=== PATIENT | female | born 1950 | race Caucasian/White ===

== ENCOUNTER → 2019-07-07 10:56 | Outpatient (CLI) | payer MEDICARE, SELFPAY ==
--- NOTE | 2019-07-07 11:07 | XR_ITS ---
PROCEDURE: XR KNEE RT 3V CLINICAL INDICATION: RT KNEE PAIN COMPARISON: No exams were available for comparison FINDINGS: There are moderate to severe osteoarthritic changes of the medial compartment and patellofemoral joint. No fracture or dislocation. There are several small calcific densities along the posterior aspect of the knee 1 0 which is felt to represent the fabella. There are at least 2 or 3 other small calcific densities at the tibial fibular region and could represent small loose bodies. Other findings:None. IMPRESSION: Moderate to severe osteoarthritic change with suspected small loose bodies laterally Dictated by: Dragan Escalante MD 07/07/2019 13:02 Electronically signed by Dragan Escalante MD in [place] 07/07/2019 13:02
== END ==
PROVIDERS: PCP Nurse Practitioner; Visit Provider Nurse Practitioner
DX: M25.561 Pain in right knee (principal)
CPT/HCPCS: 73562

== ENCOUNTER → 2019-07-26 13:33 | Outpatient (CLI) | payer MEDICARE, SELFPAY ==
--- NOTE | 2019-07-26 13:37 | XR_ITS ---
PROCEDURE: XR KNEE RT 4V CLINICAL INDICATION: knee pain Knee pain and swelling COMPARISON: XR KNEE RT 3V from 07/07/2019 FINDINGS: There are moderate osteoarthritic changes of the medial compartment and mild osteoarthritis of the lateral compartment and patellofemoral joint. There are multiple small loose bodies noted along the tibiofibular junction. These may be synovial osteochondromas within a bursa. No fracture or dislocation. Other findings:None. IMPRESSION: No change osteoarthritis with suspected small synovial osteochondromas. MRI may confirm this finding Dictated by: Dragan Escalante MD 07/26/2019 16:29 Electronically signed by Dragan Escalante MD in [facility] 07/26/2019 16:29
== END ==
PROVIDERS: PCP Nurse Practitioner; Visit Provider Orthopaedic Surgery
DX: M25.561 Pain in right knee (principal)
CPT/HCPCS: 73564

== ENCOUNTER → 2021-09-11 11:40 | Outpatient (CLI) | payer MEDICARE, SELFPAY | PROVIDERS: PCP Nurse Practitioner Family; Visit Provider Nurse Practitioner | DX: U07.1 COVID-19 (principal) | CPT/HCPCS: C9803; U0003; U0005 ==

== ENCOUNTER → 2022-11-07 10:56 | Outpatient (CLI) | payer MEDICARE, SELFPAY ==
--- NOTE | 2022-11-07 11:00 | MM_ITS ---
PROCEDURE INFORMATION: Exam: Bilateral Screening 3D Mammography Exam date and time: 11/07/2022 10:57 AM Age: 72 years old Clinical indication: Screening examination TECHNIQUE: Imaging protocol: Bilateral Screening tomosynthesis and 2D mammography including computer-aided detection (CAD) when performed. COMPARISON: [facility] DIGITAL MAMM-SCREEN BILATERAL 04/22/2011 8:27 AM FINDINGS: MAMMOGRAPHY: Breast composition: There are scattered areas of fibroglandular density. Mass: None. Architectural distortion: None. Calcifications: No suspicious calcifications. Asymmetric density: None. Skin thickening: None. Axillary adenopathy: None. IMPRESSION: No mammographic evidence of malignancy. Annual screening is recommended unless otherwise clinically indicated. ASSESSMENT: BI-RADS Category 1: Negative
== END ==
PROVIDERS: PCP Nurse Practitioner Family; Visit Provider Nurse Practitioner Family
DX: Z12.31 Encounter for screening mammogram for malignant neoplasm of breast (principal)
CPT/HCPCS: 77063; 77067

== ENCOUNTER → 2023-05-28 13:32 | Outpatient (CLI) | payer MEDICARE, SELFPAY ==
[2023-05-27 19:03] LABS: Alanine Aminotransferase 18 U/L (12-78); Albumin Level 4.3 g/dl (3.5-5.0); Albumin/Globulin Ratio 1.5 (1.1-1.8); Alkaline Phosphatase 56 U/L (38-126); Anion Gap 13.4 mEq/L (5-15); Aspartate Amino Transferase 27 U/L (14-36); Bilirubin,Total 0.4 mg/dl (0.2-1.3); Blood Urea Nitrogen 21 mg/dl (7-17); Calcium 9.2 mg/dl (8.4-10.2); Carbon Dioxide 29 mmol/L (22.0-30.0); Chloride 102 mmol/L (98-107); Chol/HDL Ratio 2.8 (1-3.5); Cholesterol 202 mg/dl (140-200); Estimated Glomerular Filt Rate 70 ml/min (>60); GFR (African American) 85 ML/MIN (>60); Globulin 2.9 g/dL (1.3-3.2); Glucose 78 mg/dl (74-100); HDL Cholesterol 71 mg/dl (40-60); Potassium 4.4 mmoL/L (3.5-5.1); Sodium 140 mmol/L (136-145); Total Protein,Serum 7.2 g/dl (6.3-8.2); Triglycerides 107 mg/dl (30-150); VLDL Cholesterol 21 mg/dL (0-40)
[2023-05-27 19:14] LABS: Direct LDL Cholesterol 87.62 mg/dL (100-129)
[2023-05-27 19:31] LABS: Thyroid Stimulating Hormone 2.14 uIU/mL (0.465-4.68)
== END ==
PROVIDERS: PCP Nurse Practitioner Family; Visit Provider Nurse Practitioner Family
DX: E78.5 Hyperlipidemia, unspecified (principal)
CPT/HCPCS: 80053; 80061; 84443

== ENCOUNTER 2023-12-22 13:12 | Outpatient (CLI) | payer MEDICARE, SELFPAY ==
[2023-12-22 13:02] LABS: Basophils # 0.1 K/mm3 (0-0.2); Basophils % 0.9 % (0.1-2.0); Eosinophils # 0.1 K/mm3 (0.0-0.4); Hematocrit 43.9 % (37.0-47.0); Lymphocytes # 2.3 K/mm3 (0.7-4.5); Lymphocytes % 34.6 % (10-50); Mean Corpuscular HGB Conc 31.7 g/dL (31.8-35.4); Mean Corpuscular Hemoglobin 31.1 pg (27.0-31.2); Mean Platelet Volume 10.5 fl (7.4-10.4); Monocytes # 0.4 K/mm3 (0.1-1.0); Monocytes % 6.6 % (1.7-9.3); Neutrophils # 3.7 K/mm3 (1.8-7.8); Neutrophils % 56.9 % (37.0-80.0); Platelet Count 210 K/mm3 (142-424); Red Blood Count 4.48 M/mm3 (4.20-5.40); Red Cell Distribution Width 13.3 % (11.5-17.5); White Blood Count 6.6 K/mm3 (4.8-10.8)
[2023-12-22 13:41] LABS: Alanine Aminotransferase 18 U/L (12-78); Albumin Level 4.2 g/dl (3.5-5.0); Albumin/Globulin Ratio 1.7 (1.1-1.8); Alkaline Phosphatase 51 U/L (38-126); Anion Gap 10.8 mEq/L (5-15); Aspartate Amino Transferase 20 U/L (14-36); Bilirubin,Total 0.5 mg/dl (0.2-1.3); Blood Urea Nitrogen 27 mg/dl (7-17); Calcium 9.7 mg/dl (8.4-10.2); Carbon Dioxide 32 mmol/L (22.0-30.0); Chloride 102 mmol/L (98-107); Chol/HDL Ratio 2.2 (1-3.5); Cholesterol 224 mg/dl (140-200); Estimated Glomerular Filt Rate 70 ml/min (>60); GFR (African American) 85 ML/MIN (>60); Globulin 2.5 g/dL (1.3-3.2); Glucose 85 mg/dl (74-100); HDL Cholesterol 102 mg/dl (40-60); Potassium 3.8 mmoL/L (3.5-5.1); Sodium 141 mmol/L (136-145); Total Protein,Serum 6.7 g/dl (6.3-8.2); Triglycerides 99 mg/dl (30-150); VLDL Cholesterol 20 mg/dL (0-40)
[2023-12-22 13:52] LABS: Direct LDL Cholesterol 103.84 mg/dL (100-129)
[2023-12-22 14:09] LABS: Thyroid Stimulating Hormone 3.16 uIU/mL (0.465-4.68)
[2023-12-22 14:27] LABS: Vitamin B12 531 pg/mL (239-931)
== END 2023-12-22 23:59 | disposition home or self-care (01) ==
LOC: LAB.DROPOF 13:13
PROVIDERS: PCP Nurse Practitioner Family; Visit Provider Nurse Practitioner Family
DX: I10 Essential (primary) hypertension (principal); M25.50 Pain in unspecified joint; E78.5 Hyperlipidemia, unspecified; Z68.1 Body mass index [BMI] 19.9 or less, adult
CPT/HCPCS: 80053; 80061; 82607; 84443; 85025

== ENCOUNTER 2024-07-20 11:00 | Outpatient (CLI) | payer MEDICARE, SELFPAY ==
[2024-07-20 11:05] LABS: Microscopic, Urine URINE MICROSCOPIC (MICROSCOPIC)
[2024-07-20 11:44] LABS: Appearance,Urine CLEAR (Clear); Bilirubin,Urine Negative (Negative); Blood, Urine Negative (Negative); Color,Urine YELLOW (Yellow); Glucose,Urine (UA) Negative (Negative); Ketones,Urine Negative (Negative); Leukocyte Esterase,Urine Negative (Negative); Nitrate,Urine Negative (Negative); PH,Urine 5.5 (5.0-8.5); Protein,Urine Negative (Negative); Urobilinogen,Urine 0.2 EU/dl (0.2)
[2024-07-20 11:46] LABS: Basophils # 0.1 K/mm3 (0-0.2); Basophils % 0.8 % (0.1-2.0); Eosinophils # 0.1 K/mm3 (0.0-0.4); Eosinophils % 0.8 % (0.1-12.0); Hematocrit 41.9 % (37.0-47.0); Hemoglobin 14.2 g/dL (12.2-16.2); Lymphocytes % 32.6 % (10-50); Mean Corpuscular HGB Conc 33.9 g/dL (31.8-35.4); Mean Corpuscular Hemoglobin 31.3 pg (27.0-31.2); Mean Corpuscular Volume 92.3 fl (81-99); Monocytes # 0.5 K/mm3 (0.1-1.0); Monocytes % 7.2 % (1.7-9.3); Neutrophils # 3.7 K/mm3 (1.8-7.8); Neutrophils % 58.7 % (37.0-80.0); Platelet Count 180 K/mm3 (142-424); Red Blood Count 4.54 M/mm3 (4.20-5.40); Red Cell Distribution Width 13.8 % (11.5-17.5); White Blood Count 6.2 K/mm3 (4.8-10.8)
[2024-07-20 11:53] LABS: Bacteria,Urine Trace /lpf; Squamous Epithelial Cell,Urine Occasional #/hpf (0-5)
[2024-07-20 11:59] LABS: Alanine Aminotransferase 54 U/L (12-78); Albumin Level 4.5 g/dl (3.5-5.0); Albumin/Globulin Ratio 1.5 (1.1-1.8); Alkaline Phosphatase 64 U/L (38-126); Anion Gap 12.6 mEq/L (5-15); Aspartate Amino Transferase 32 U/L (14-36); Bilirubin,Total 0.7 mg/dl (0.2-1.3); Blood Urea Nitrogen 29 mg/dl (7-17); Calcium 9.1 mg/dl (8.4-10.2); Carbon Dioxide 28 mmol/L (22.0-30.0); Chloride 104 mmol/L (98-107); Chol/HDL Ratio 3.2 (1-3.5); Cholesterol 256 mg/dl (140-200); Estimated Glomerular Filt Rate 54 ml/min (>60); GFR (African American) 66 ML/MIN (>60); Glucose 95 mg/dl (74-100); HDL Cholesterol 79 mg/dl (40-60); Magnesium 1.9 mg/dl (1.6-2.3); Potassium 3.6 mmoL/L (3.5-5.1); Sodium 141 mmol/L (136-145); Total Protein,Serum 7.5 g/dl (6.3-8.2); Triglycerides 126 mg/dl (30-150); VLDL Cholesterol 25 mg/dL (0-40)
[2024-07-20 12:10] LABS: C-Reactive Protein 2.4 mg/L (0-4); Direct LDL Cholesterol 139.39 mg/dL (100-129)
[2024-07-20 12:11] LABS: Troponin I 0.07 ng/ml (0.00-0.034)
[2024-07-20 12:29] LABS: Thyroid Stimulating Hormone 3.04 uIU/mL (0.465-4.68)
== END 2024-07-20 23:59 | disposition home or self-care (01) ==
LOC: LAB 11:01
PROVIDERS: PCP Nurse Practitioner Family; Visit Provider Nurse Practitioner Family
DX: E78.5 Hyperlipidemia, unspecified (principal); R55 Syncope and collapse; I10 Essential (primary) hypertension
CPT/HCPCS: 36415; 80053; 80061; 81001; 83735; 84443; 84484; 85025; 86140

== ENCOUNTER 2024-07-20 16:32 | Observation (INO) | payer MEDICARE, SELFPAY ==
[2024-07-20] VITALS (9 sets, daily range): BP systolic 137–175; BP diastolic 68–106; PULSE 63–83; RESP 17–20; TEMP 36.4–36.7; O2SAT 91–100; BMI 20.2
--- NOTE | 2024-07-20 16:52 | ED_ITS ---
<Statement entered by Bonny Lopez DO - 07/21/24 00:25> I was consulted by the TAO, and we discussed the complexity of the problems being addressed. I approved the treatment and management plan for this patient's care in the emergency department, thus performing a substantive portion of the medical decision making. Bonny Lopez DO Discharge Plan Disposition Patient Disposition: Admitted Condition: Good Clinical Impressions Clinical Impression: Syncope and collapse, Elevated troponin I level, Elevated brain natriuretic peptide (BNP) level Discharge ED Provider: Bonny Lopez General Adult HPI <THERESA Porter - Last Filed: 07/20/24 19:56> General Chief complaint: Recheck/Abnormal Lab/Rx Stated complaint: sent by DR. Whittington blood test results Time Seen by Provider: 07/20/24 16:52 Mode of Arrival: Ambulatory Source of Information: Patient and Spouse Limitations: No Limitations Description of Symptoms (Recalled from ER Triage Doc. by RN): pt went to pcp office today after passing out yesterday at home at 11:30 it was witnessed an no head injury sustained pt denies any pain. pt states she was called this afternoon about abnormal heart labs trop was 0.07. pt states she is dehydrated and they switched her from bp med with fluid pill to one without it. pt is alox 4 denies any cp soa and only stated she had dizziness as of yesterday History of Present Illness HPI narrative: Patient presents from her PCPs office for abnormal lab results. Patient had a syncopal event yesterday that was unprovoked. She states that she got dizzy and abruptly passed out while standing talking to her son and in the yard. Fortunately she suffered no injury but her states that she was approximately unconscious for 2 minutes. Patient reports that she has never passed out in her life. She suffered no ill effect however but she went to see her PCP today for checkup. Her PCP did routine blood work but in addition ordered a troponin which was elevated at 0.07. Subsequently she was sent to the ER for evaluation. Currently the time my exam patient denies chest pain fever chills hemoptysis hematochezia melena nausea vomit diarrhea. Related Data Home Medications ?Medication ?Instructions ?Recorded ?Confirmed pravastatin 20 mg tablet 20 mg PO DAILY 06/16/24 07/20/24 Previous Rx's ?Medication ?Instructions ?Recorded meloxicam 15 mg tablet 15 mg PO DAILY 90 days #90 tabs 05/28/23 lisinopril 20 mg tablet 20 mg PO DAILY #90 tabs 07/20/24 Allergies Allergy/AdvReac Type Severity Reaction Status Date / Time No Known Allergies Allergy Verified 07/20/24 10:00 [facility] <THERESA Porter - Last Filed: 07/20/24 19:56> [facility] Disclaimer: The information contained in this section may have been updated after the patient was seen, as this information can be updated by other users. Surgical History Hx of colonoscopy 12/2021 normal Family History Father Cancer lung Mother Cancer lung Social History Smoking Status: Never smoker alcohol intake: never substance use type: denies use current occupational status: retired Travel in the last 8 weeks: None Other Medical History Have you received the Pneumonia Vaccine: No <THERESA Proter - Last Filed: 07/20/24 19:56> ROS Obtained: Yes Systems reviewed as appropriate & no additional complaints except as documented Physical Exam <THERESA Porter - Last Filed: 07/20/24 19:56> General General appearance: alert and in no apparent distress Respiratory Respiratory exam: Present normal lung sounds bilaterally Cardiovascular Cardiovascular exam: Present regular rate Neurological Exam Neurological exam: Present alert and oriented X3 Medical Decision Making <THERESA Porter - Last Filed: 07/20/24 19:56> Medical Records Medical records reviewed: Yes I reviewed the patient's medical records. Screening: Per USPSTF and CDC recommendations, given the prevalence of disease in our region, it is our hospital?s policy to screen for HIV and viral Hepatitis for all patients aged 18 and over and those with ongoing risk factors. Ronny Inquiry Pt receiving controlled substance: No Vital Signs: 07/20/24 16:33 07/20/24 17:00 07/20/24 18:01 Temperature 98 F Temperature Source Oral Pulse Rate 73 72 Pulse Rate [Right Radial] 83 Respiratory Rate 20 Blood Pressure 175/90 H 146/81 H Blood Pressure [Right Arm] 169/95 H Blood Pressure Mean [Right Arm] 119 02 Sat by Pulse Oximetry 100 100 100 Oxygen Delivery Method Room Air 07/20/24 19:00 07/20/24 19:30 07/20/24 20:00 Temperature Temperature Source Pulse Rate 72 77 70 Pulse Rate [Right Radial] Respiratory Rate Blood Pressure 145/106 H 160/82 H 142/85 H Blood Pressure [Right Arm] Blood Pressure Mean [Right Arm] 02 Sat by Pulse Oximetry 91 L 100 100 Oxygen Delivery Method Lab Data Lab results reviewed: Yes I reviewed the patient's lab results. Lab Results 07/20/24 17:30: PT 10.3, INR 0.91, Magnesium 1.8, Troponin I 0.05 H, NT-Pro-B Natriuret Pep 1760 H, TSH 4.07 D, Free T4 Index 2.9 L, Thyroxine (T4) 8.8, T3 Uptake 33 07/20/24 18:18: Urine Color Yellow, Urine Appearance Clear, Urine pH 5.5, Ur Specific [place] 1.010, Urine Protein Negative, Urine Glucose (UA) Negative, Urine Ketones Negative, Urine Blood Negative, Urine Nitrate Negative, Urine Bilirubin Negative, Urine Urobilinogen 0.2, Ur Leukocyte Esterase Negative, Urine RBC 3-5, Urine WBC Occasional, Ur Squamous Epith Cells Occasional, Urine Opiates Screen Negative, Urine Methadone Screen Negative, Ur Barbituates Screen Negative, Ur Phencyclidine Scrn Negative, Ur Amphetamines Screen Negative, U Benzodiazepines Scrn Negative, Urine Cocaine Screen Negative, U Marijuana (THC) Screen Negative, SARS-CoV-2 (PCR) Not detected, Influenza A Untype (PCR) Not detected, Influenza Type B (PCR) Not detected Orders (Tests/Meds): ED MEDICATIONS Discontinued Medications Generic Name Dose Route Start Last Admin Trade Name Freq PRN Reason Stop Dose Admin Iopamidol 150 ml 07/20/24 17:30 07/20/24 17:31 Iopamidol-370 (76%);100ml Bottle IV 07/20/24 17:31 150 ml ONCE ONE Administration Sodium Chloride 10 ml 07/20/24 17:30 07/20/24 17:31 Sodium Chloride 0.9% 10ml Syr (Rad Only) IV 07/20/24 17:31 10 ml ONCE ONE Administration Sodium Chloride 50 ml 07/20/24 17:30 07/20/24 17:31 0.9 % Sodium Chloride 50 Ml Vial IV 07/20/24 17:31 50 ml ONCE ONE Administration ORDERS Category Date Time Status CT angio chest PE protocol Stat Cat Scan 07/20/24 17:[address] angio head Stat Cat Scan 07/20/24 17:[address] angio neck Stat Cat Scan 07/20/24 17:[address] head/brain wo con Stat Cat Scan 07/20/24 17:04 Completed Cardiology Consult [Consult to Cardiology] [CONS] Cons 07/20/24 19:30 Active Routine BNP [NT Pro Brain Natriuretic Pep.] Stat Lab 07/20/24 17:30 Completed Complete Blood Count Auto Diff AMLAB Lab 07/21/24 06:00 Ordered Comprehensive Metabolic Panel AMLAB Lab 07/21/24 06:00 Ordered INR [Prothrombin Time INR] Stat Lab 07/20/24 17:30 Completed Lipid Panel AMLAB Lab 07/21/24 06:00 Ordered Magnesium AMLAB Lab 07/21/24 06:00 Ordered Magnesium Stat Lab 07/20/24 17:30 Completed Rapid PCR Covid and Flu A/B Stat Lab 07/20/24 18:18 Completed Thyroid Panel Stat Lab 07/20/24 17:30 Completed Trop I [Troponin I] Stat Lab 07/20/24 17:30 Completed Troponin I Q3H Lab 07/20/24 20:13 Received Troponin I Q3H Lab 07/20/24 23:15 Ordered UA [Urinalysis and Microscopic] Stat Lab 07/20/24 18:18 Completed UDS [Drug Screen,Urine] Stat Lab 07/20/24 18:18 Completed Medical Decision Narrative: In summary patient is a 74-year-old female who presents to the emergency department for evaluation of evaded troponin and previous syncope and collapse. Patient is initially with a blood pressure of 169/95 pulse 83 respiratory rate 20 O2 sats 100% on room air upon arrival, febrile. Exam is unremarkable and nonfocal including normal heart sounds no carotid bruits normal breath sounds Nadia Coma Score 15 awake alert and oriented person place and circumstance and retains the capacity for decision making. She has no nuchal rigidity.. Differential diagnosis includes cardiac arrhythmia versus vasovagal syncope cardiovascular blockage versus PE versus intracranial lesion etc. Initial workup will be conducted with hematologic labs CT scan of the head without contrast CTA of the head and neck CT PE protocol of the chest. Initial interventions were considered however patient is asymptomatic thus deferred for now. Initial workup reviewed by me shows her troponin is downward trending and is still positive at 0.05, her NT proBNP was elevated at 1760 and her labs from earlier today were reviewed by myself and nonactionable the on the positive troponin. I reinterviewed the patient regarding her symptoms and several more family members are present and they all mentioned that she had been having occasional dizziness that she felt better with after vomiting. There very infrequent however she has never had them before recently either. She did report that in addition to the dizziness that she felt like she was having palpitations . She is unsure if the palpitations came first or the dizziness but they seem to happen together. She did state that she was having dizziness but cannot member she had palpitations or not. Given this I had an interactive discussion with hospital medicine regarding patient management and she will be admitted for further evaluation and care <Bonny Lopez, DO - Last Filed: 07/20/24 20:21> Vital Signs: 07/20/24 16:33 07/20/24 17:00 07/20/24 18:01 Temperature 98 F Temperature Source Oral Pulse Rate 73 72 Pulse Rate [Right Radial] 83 Respiratory Rate 20 Blood Pressure 175/90 H 146/81 H Blood Pressure [Right Arm] 169/95 H Blood Pressure Mean [Right Arm] 119 02 Sat by Pulse Oximetry 100 100 100 Oxygen Delivery Method Room Air 07/20/24 19:00 07/20/24 19:30 07/20/24 20:00 Temperature Temperature Source Pulse Rate 72 77 70 Pulse Rate [Right Radial] Respiratory Rate Blood Pressure 145/106 H 160/82 H 142/85 H Blood Pressure [Right Arm] Blood Pressure Mean [Right Arm] 02 Sat by Pulse Oximetry 91 L 100 100 Oxygen Delivery Method Lab Data Lab Results 07/20/24 17:30: PT 10.3, INR 0.91, Magnesium 1.8, Troponin I 0.05 H, NT-Pro-B Natriuret Pep 1760 H, TSH 4.07 D, Free T4 Index 2.9 L, Thyroxine (T4) 8.8, T3 Uptake 33 07/20/24 18:18: Urine Color Yellow, Urine Appearance Clear, Urine pH 5.5, Ur Specific [place] 1.010, Urine Protein Negative, Urine Glucose (UA) Negative, Urine Ketones Negative, Urine Blood Negative, Urine Nitrate Negative, Urine Bilirubin Negative, Urine Urobilinogen 0.2, Ur Leukocyte Esterase Negative, Urine RBC 3-5, Urine WBC Occasional, Ur Squamous Epith Cells Occasional, Urine Opiates Screen Negative, Urine Methadone Screen Negative, Ur Barbituates Screen Negative, Ur Phencyclidine Scrn Negative, Ur Amphetamines Screen Negative, U Benzodiazepines Scrn Negative, Urine Cocaine Screen Negative, U Marijuana (THC) Screen Negative, SARS-CoV-2 (PCR) Not detected, Influenza A Untype (PCR) Not detected, Influenza Type B (PCR) Not detected Orders (Tests/Meds): ED MEDICATIONS Discontinued Medications Generic Name Dose Route Start Last Admin Trade Name Freq PRN Reason Stop Dose Admin Iopamidol 150 ml 07/20/24 17:30 07/20/24 17:31 Iopamidol-370 (76%);100ml Bottle IV 07/20/24 17:31 150 ml ONCE ONE Administration Sodium Chloride 10 ml 07/20/24 17:30 07/20/24 17:31 Sodium Chloride 0.9% 10ml Syr (Rad Only) IV 07/20/24 17:31 10 ml ONCE ONE Administration Sodium Chloride 50 ml 07/20/24 17:30 07/20/24 17:31 0.9 % Sodium Chloride 50 Ml Vial IV 07/20/24 17:31 50 ml ONCE ONE Administration ORDERS Category Date Time Status CT angio chest PE protocol Stat Cat Scan 07/20/24 17:[address] angio head Stat Cat Scan 07/20/24 17:[address] angio neck Stat Cat Scan 07/20/24 17:[address] head/brain wo con Stat Cat Scan 07/20/24 17:04 Completed Cardiology Consult [Consult to Cardiology] [CONS] Cons 07/20/24 19:30 Active Routine BNP [NT Pro Brain Natriuretic Pep.] Stat Lab 07/20/24 17:30 Completed Complete Blood Count Auto Diff AMLAB Lab 07/21/24 06:00 Ordered Comprehensive Metabolic Panel AMLAB Lab 07/21/24 06:00 Ordered INR [Prothrombin Time INR] Stat Lab 07/20/24 17:30 Completed Lipid Panel AMLAB Lab 07/21/24 06:00 Ordered Magnesium AMLAB Lab 07/21/24 06:00 Ordered Magnesium Stat Lab 07/20/24 17:30 Completed Rapid PCR Covid and Flu A/B Stat Lab 07/20/24 18:18 Completed Thyroid Panel Stat Lab 07/20/24 17:30 Completed Trop I [Troponin I] Stat Lab 07/20/24 17:30 Completed Troponin I Q3H Lab 07/20/24 20:13 Received Troponin I Q3H Lab 07/20/24 23:15 Ordered UA [Urinalysis and Microscopic] Stat Lab 07/20/24 18:18 Completed UDS [Drug Screen,Urine] Stat Lab 07/20/24 18:18 Completed ECG Data Tracing #1: I reviewed this ECG and interpreted as documented below: Normal sinus rhythm with a ventricular rate of [address] changes concerning for ischemia. Normal axis and intervals ECG initial impression date: 07/20/24 ECG initial impression time: 17:23 Critical Care <THERESA Porter - Last Filed: 07/20/24 19:56> Critical Care Time Critical Care Time: No
--- NOTE | 2024-07-20 17:04 | CT_ITS ---
PROCEDURE INFORMATION: Exam: CTA Head With Contrast, Arteriography Exam date and time: 07/20/2024 5:30 PM Age: 74 years old Clinical indication: Syncope and collapse TECHNIQUE: Imaging protocol: Computed tomographic angiography of the head with contrast. Exam focused on the arteries. 3D rendering (Not supervised by radiologist): MIP and/or 3D reconstructed images were created by the technologist. Radiation optimization: All CT scans at this facility use at least one of these dose optimization techniques: automated exposure control; mA and/or kV adjustment per patient size (includes targeted exams where dose is matched to clinical indication); or iterative reconstruction. Contrast material: ISOVUE 370; Contrast volume: 80 ml; Contrast route: INTRAVENOUS (IV); COMPARISON: CT HEAD/BRAIN WO CON 08/18/2024 17:30 FINDINGS: ANTERIOR CIRCULATION: Right internal carotid artery: Intracranial segment is patent with no significant stenosis. No aneurysm. Right middle cerebral artery: No occlusion or significant stenosis. No aneurysm. Right anterior cerebral artery: No occlusion or significant stenosis. No aneurysm. Left internal carotid artery: Intracranial segment is patent with no significant stenosis. No aneurysm. Left middle cerebral artery: No occlusion or significant stenosis. No aneurysm. Left anterior cerebral artery: No occlusion or significant stenosis. No aneurysm. POSTERIOR CIRCULATION: Right vertebral artery: No occlusion or significant stenosis. No aneurysm. Left vertebral artery: No occlusion or significant stenosis. No aneurysm. Basilar artery: No occlusion or significant stenosis. No aneurysm. 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 Left posterior cerebral artery: No occlusion or significant stenosis. No aneurysm. Brain: No definite mass, mass effect, or midline shift. Cerebral ventricles: No ventriculomegaly. Bones/joints: Unremarkable. No acute fracture. Soft tissues: Unremarkable. IMPRESSION: No significant intracranial arterial abnormality.
--- NOTE | 2024-07-20 17:04 | CT_ITS ---
PROCEDURE INFORMATION: Exam: CTA Neck With Contrast Exam date and time: 07/20/2024 5:30 PM Age: 74 years old Clinical indication: Syncope and collapse TECHNIQUE: Imaging protocol: Computed tomographic angiography of the neck with contrast. Exam focused on the cervical segments of the vasculature. 3D rendering (Not supervised by radiologist): MIP and/or 3D reconstructed images were created by the technologist. Radiation optimization: All CT scans at this facility use at least one of these dose optimization techniques: automated exposure control; mA and/or kV adjustment per patient size (includes targeted exams where dose is matched to clinical indication); or iterative reconstruction. Contrast material: ISOVUE 370; Contrast volume: 80 ml; Contrast route: INTRAVENOUS (IV); COMPARISON: CT ANGIO HEAD 08/18/2024 17:30 FINDINGS: Right common carotid artery: No stenosis. No dissection or occlusion. Right internal carotid artery: 0% stenosis of the right internal carotid artery per NASCET criteria. Right external carotid artery: No occlusion or stenosis of the origin. Left common carotid artery: No stenosis. No dissection or occlusion. Left internal carotid artery: 0% stenosis of the left internal carotid artery per NASCET criteria. Left external carotid artery: No occlusion or stenosis of the origin. Right vertebral artery: No stenosis. No dissection or occlusion. Left vertebral artery: No stenosis. No dissection or occlusion. Thyroid: Thyroid nodules measuring up to 7 mm. No follow-up imaging is warranted. Soft tissues: Normal. No significant soft tissue swelling. Bones/joints: Multilevel degenerative changes of the cervical spine producing multiple levels of mild and moderate spinal canal stenosis. Lungs: Bilateral apical scarring. IMPRESSION: No significant abnormality of the carotid and vertebral arteries. COMMENTS: Consistent with the [employer]'s Incidental Findings Committee white paper (J Am Raul Radiol 2015): In patients aged 35 years and older with an incidental thyroid nodule equal to or greater than 1.[address], MRI or extrathyroidal US, further evaluation with dedicated thyroid US is recommended for patients with normal life expectancy and without comorbidities. For smaller nodules without suspicious features, no further evaluation or follow up is recommended. REFERENCES: NASCET CRITERIA. The degree of stenosis in the cervical segment of the internal carotid artery is based on NASCET criteria. Normal is no stenosis. Mild is less than 50% stenosis. Moderate is 50-69% stenosis. Severe is 70% to 99% stenosis. Total occlusion is no detectable patent lumen.
--- NOTE | 2024-07-20 17:04 | CT_ITS ---
PROCEDURE INFORMATION: Exam: CTA Chest With Contrast Exam date and time: 07/20/2024 5:34 PM Age: 74 years old Clinical indication: Other: Syncope and collapse; Additional info: Syncope and collapse, elevated troponin TECHNIQUE: Imaging protocol: Computed tomographic angiography of the chest with contrast. Exam focused on the arteries. 3D rendering (Not supervised by radiologist): MIP and/or 3D reconstructed images were created by the technologist. Radiation optimization: All CT scans at this facility use at least one of these dose optimization techniques: automated exposure control; mA and/or kV adjustment per patient size (includes targeted exams where dose is matched to clinical indication); or iterative reconstruction. Contrast material: ISOVUE 370; Contrast volume: 70 ml; Contrast route: INTRAVENOUS (IV); COMPARISON: CT ANGIO NECK 07/20/2024 5:30 PM FINDINGS: Pulmonary arteries: There is no evidence for clinically relevant pulmonary arterial filling defect. Tiny distal filling defects may be present but are of dubious clinical significance. Aorta: There is atherosclerotic disease of the visualized aorta and its major branch vessels. Lungs: Calcified granuloma is noted in the left lower lobe. Small consolidation at the left lung base may reflect atelectasis or infection. Scattered areas of bronchial wall thickening which are likely chronic inflammatory. A few areas of subpleural reticulation are noted, nonspecific. Pleural spaces: Unremarkable. No pneumothorax. No pleural effusion. Heart: Unremarkable. No cardiomegaly. No pericardial effusion. Lymph nodes: Unremarkable. No enlarged lymph nodes. Bones/joints: There is diffuse degenerative disease of the visualized osseous structures. Soft tissues: Unremarkable. IMPRESSION: 1. Small consolidation at the left lung base may reflect atelectasis or infection. 2. No evidence for clinically relevant pulmonary arterial filling defect.
--- NOTE | 2024-07-20 17:04 | CT_ITS ---
PROCEDURE INFORMATION: Exam: CT Head Without Contrast Exam date and time: 07/20/2024 5:30 PM Age: 74 years old Clinical indication: Syncope and collapse TECHNIQUE: Imaging protocol: Computed tomography of the head without contrast. Radiation optimization: All CT scans at this facility use at least one of these dose optimization techniques: automated exposure control; mA and/or kV adjustment per patient size (includes targeted exams where dose is matched to clinical indication); or iterative reconstruction. COMPARISON: CT ANGIO HEAD 08/18/2024 17:30 FINDINGS: Brain: Bilateral basal ganglial low-attenuation lesions could be dilated perivascular spaces are chronic lacunar infarctions. Mild chronic brain volume loss and chronic small vessel ischemic changes. Cerebral ventricles: No ventriculomegaly. Paranasal sinuses: Visualized sinuses are unremarkable. No fluid levels. Mastoid air cells: Visualized mastoid air cells are well aerated. Bones: Unremarkable. No acute fracture. Soft tissues: Unremarkable. IMPRESSION: No acute intracranial findings. If there is high clinical concern for acute infarction, consider MRI for further evaluation. ASSESSMENT: ASPECTS score ([place] Stroke Program Early CT Score) is 10.
--- NOTE | 2024-07-20 17:15 | ECG_ITS ---
APPROVED REPORT Exam: Resting ECG HR:70 bpm ECG Measurements Heart Rate 70 AXES CA 179 P 75 QRSd 94 QRS 58 QT 393 T 56 QTc 413 Conclusion SINUS RHYTHM POSSIBLE LEFT ATRIAL ENLARGEMENT [-0.1mV P-WAVE IN V1/V2] BORDERLINE ECG Electronically signed by : DIPAK ANDRADE, 07/21/2024 00:47:10
[2024-07-20] MEDS: IOPAMIDOL-370 (76%);100ML BOTTLE 150 ML IV (17:31)
[2024-07-20] MEDS: 0.9 % SODIUM CHLORIDE 50 ML VIAL IV (17:31)
[2024-07-20] MEDS: SODIUM CHLORIDE 0.9% 10ML SYR (RAD ONLY) 10 ML IV (17:31)
[2024-07-20 18:01] LABS: INR 0.91 (0.9-1.1); Prothrombin Time 10.3 seconds (10.1-12.5)
[2024-07-20 18:25] LABS: Coronavirus 19, PCR Not Detected (NotDetected); Influenza A, PCR Not Detected (NotDetected); Influenza B, PCR Not Detected (NotDetected); Microscopic, Urine URINE MICROSCOPIC (MICROSCOPIC)
[2024-07-20 18:28] LABS: Appearance,Urine CLEAR (Clear); Bilirubin,Urine Negative (Negative); Blood, Urine Negative (Negative); Color,Urine YELLOW (Yellow); Glucose,Urine (UA) Negative (Negative); Ketones,Urine Negative (Negative); Leukocyte Esterase,Urine Negative (Negative); Nitrate,Urine Negative (Negative); PH,Urine 5.5 (5.0-8.5); Protein,Urine Negative (Negative); Urobilinogen,Urine 0.2 EU/dl (0.2)
[2024-07-20 18:34] LABS: Magnesium 1.8 mg/dl (1.6-2.3)
[2024-07-20 18:45] LABS: Amphetamine/Metha Screen,Urine Negative ng/ml (<1000); Barbiturates Screen,Urine Negative ng/ml (<200); Benzodiazepines Screen,Urine Negative ng/ml (<200); Cannabinoid Screen,Urine Negative ng/ml (<50); Cocaine Screen,Urine Negative ng/ml (<300); Methadone Screen,Urine Negative ng/ml (<300); Opiate Screen,Urine Negative ng/ml (<300); Phencyclidine Screen,Urine Negative ng/ml (<25)
[2024-07-20 18:53] LABS: NT Pro Brain Natriuretic Pep. 1760 pg/mL (0-125); Troponin I 0.05 ng/ml (0.00-0.034)
[2024-07-20 19:04] LABS: Free Thyroxine Index 2.9 ug/dL (5.93-13.13); T4 (Thyroxine) 8.8 ug/dl (5.53-11.0); Triiodothryronine (T3) Uptake 33 % (23.5-40.5)
[2024-07-20 19:17] LABS: Squamous Epithelial Cell,Urine Occasional #/hpf (0-5); WBC,Urine Occasional #/hpf (0-3)
[2024-07-20 19:18] LABS: Thyroid Stimulating Hormone 4.07 uIU/mL (0.465-4.68)
[2024-07-20 20:56] LABS: Troponin I 0.04 ng/ml (0.00-0.034)
--- NOTE | 2024-07-20 21:53 | P.HP_ITS ---
History of Present Illness *Admission Date: 07/20/24 *Reason for visit:: Syncope *History of present illness: Ms. Grider is a 74-year-old female who initially presented to her primary care doctor's office today because of an episode of syncope yesterday at about 1130. She was talking to her son and had been standing for at least 15 minutes when she became dizzy lost consciousness and fell. Denies any head trauma. Denies any chest pain, nausea, vomiting, shortness of breath at that time. She was called today after getting labs obtained by her PCP where she was noted to have a mild elevation in troponin at 0.07. Presentation to the ER, patient is chest pain-free. Stable on room air. Normal blood pressure with systolics in the 130s. Overall feeling well. Reports that her event yesterday lasted about 2 minutes with a regaining consciousness shortly thereafter. No postictal state or prodrome. States she has had over the past year episodes of dizziness and vomiting but never passed out before. Denies any episodes of chest pain, chest pressure, arm weakness or pain. Only history of hypertension and hyperlipidemia. Workup in the ER concerning for elevated BNP. Medicine consulted for evaluation and admission overnight for observation. On arrival to the floor, patient's and daughter at bedside. Overall well. Alert and oriented x 4. Denies emesis, nausea, diarrhea, chest pain, confusion. [facility] Disclaimer: The information contained in this section may have been updated after the patient was seen, as this information can be updated by other users. Medical History Hyperlipidemia Hypertension Surgical History Hx of colonoscopy Family History Father Cancer Father Mother Social History (Updated 07/20/24 @ 22:10 by Randi Graham RN) Smoking Status: Never smoker alcohol intake: never substance use type: denies use current occupational status: retired Travel in the last 8 weeks: None Other Medical History Have you received the Pneumonia Vaccine: No Review of Systems Review of Systems Review of systems (narrative): 14 point review of systems performed, pertinent positives and negatives as per HPI Meds Home Medications and Allergies Home Medications ?Medication ?Instructions ?Recorded ?Confirmed ?Type pravastatin 20 mg tablet 20 mg PO DAILY 06/16/24 07/20/24 History lisinopril 20 mg tablet 20 mg PO DAILY #90 tabs 07/20/24 07/20/24 Rx multivitamin 1 tab PO DAILY 07/20/24 07/20/24 History New Prescriptions to Start Prescriptions: Allergies Allergy/AdvReac Type Severity Reaction Status Date / Time No Known Allergies Allergy Verified 07/20/24 10:00 Exam Data for Last 24 hours Vital signs and Labs for Last 24 Hours: Temp Pulse Resp BP Pulse Ox O2 Del Method 98.0 F 70 17 137/82 100 Room Air 07/20/24 20:20 07/20/24 20:55 07/20/24 20:20 07/20/24 20:20 07/20/24 20:00 07/20/24 20:20 Laboratory Results - last 24 hr 07/20/24 17:30: PT 10.3, INR 0.91, Magnesium 1.8, Troponin I 0.05 H, NT-Pro-B Natriuret Pep 1760 H, TSH 4.07 D, Free T4 Index 2.9 L, Thyroxine (T4) 8.8, T3 Uptake 33 07/20/24 18:18: Urine Color Yellow, Urine Appearance Clear, Urine pH 5.5, Ur Specific [place] 1.010, Urine Protein Negative, Urine Glucose (UA) Negative, Urine Ketones Negative, Urine Blood Negative, Urine Nitrate Negative, Urine Bilirubin Negative, Urine Urobilinogen 0.2, Ur Leukocyte Esterase Negative, Urine RBC 3-5, Urine WBC Occasional, Ur Squamous Epith Cells Occasional, Urine Opiates Screen Negative, Urine Methadone Screen Negative, Ur Barbituates Screen Negative, Ur Phencyclidine Scrn Negative, Ur Amphetamines Screen Negative, U Benzodiazepines Scrn Negative, Urine Cocaine Screen Negative, U Marijuana (THC) Screen Negative, SARS-CoV-2 (PCR) Not detected, Influenza A Untype (PCR) Not detected, Influenza Type B (PCR) Not detected 07/20/24 20:13: Troponin I 0.04 H I & O for Last 24 hours: Intake & Output 07/17/24 07/18/24 07/19/24 07/20/24 23:59 23:59 23:59 23:59 Weight 57.198 kg Constitutional Constitutional: no acute distress, thin and cooperative *Routine HEENT Exam Head: Present normocephalic Eye: Present EOMI and PERRL ENT: Present mucous membranes moist *Routine Neck Exam Neck: Present supple; Absent lymphadenopathy *Routine Respiratory Exam Respiratory: Present CTA bilaterally; Absent rhonchi, wheezes or crackles *Routine Cardiovascular Exam Cardiovascular: Present RRR *Routine Abdominal Exam Abdominal: Present soft and normoactive bowel sounds; Absent tenderness *Routine Rectal Exam Rectal:: deferred *Routine Genitalia Exam Genitalia:: deferred *Routine Extremities Exam Extremities: Absent cyanosis, clubbing or edema *Routine Skin Exam Skin: Present intact and warm; Absent rash *Routine Neurological Exam Neurological: Present alert, oriented X3 and moving all extremities; Absent altered mental status Routine Psychiatric Exam Psychiatric: Present normal affect Assessment and Plan *Assessment and plan (1) Syncope: Status: Acute Qualifiers: Syncope type: unspecified Qualified Code(s): R55 - Syncope and collapse Category: Medical Code(s): R55 - Syncope and collapse (2) Elevated troponin I level: Status: Acute Category: Medical Code(s): R79.89 - Other specified abnormal findings of blood chemistry (3) Elevated brain natriuretic peptide (BNP) level: Status: Acute Category: Medical Code(s): R79.89 - Other specified abnormal findings of blood chemistry (4) Hypertension: Status: Chronic Qualifiers: Hypertension type: primary hypertension Qualified Code(s): I10 - Essential (primary) hypertension Category: Medical Code(s): I10 - Essential (primary) hypertension (5) Hyperlipidemia: Status: Chronic Qualifiers: Hyperlipidemia type: mixed hyperlipidemia Qualified Code(s): E78.2 - Mixed hyperlipidemia Category: Medical Code(s): E78.5 - Hyperlipidemia, unspecified Plan 74-year-old female who presented with syncopal event. Reports having had events over the past year of dizziness and vomiting. Presented to the ER, found to have detectable troponin, elevated BNP. Discussed case with ER physician, request admission for cardiology eval and monitoring overnight. I agreed to admit. Presentation concerning for anginal equivalent or cardiogenic etiology. Further management pending cards eval in the morning. Problems addressed as follows: Syncope: - Unclear etiology. Differential includes cardiogenic from abnormal rhythm or ischemia, vasovagal, neurogenic, dehydration. Will hold diuretic for now. Patient's troponin initially elevated at 0.07, has trended down to 0.04. BNP elevated at 1700. Does not appear clinically volume overloaded. Lungs dry on exam with no crackles, no peripheral edema. No significant edema or effusions on chest imaging. -Kidney function relatively normal with creatinine 1 however BUN elevated to 29 given concern for prerenal state. -Electrolytes normal with potassium 3.6, magnesium 1.8. No signs of anemia. Hemoglobin 14. -Repeat CBC, CMP, magnesium ordered for the morning -EKG reviewed, no ischemic changes; normal sinus rhythm -Cardiology consulted to evaluate in the morning. -Monitor on telemetry overnight for arrhythmias -Echocardiogram in the morning to evaluate for CHF -Close monitoring of blood pressure. -Concern for CAD, will load with 325 mg of aspirin x 1. Lovenox 40 mg subcu once tonight. N.p.o. at midnight pending cardiology eval in anticipation of possible intervention such as left heart cath given her symptoms and lab abnormalities. Hypertension: Continue lisinopril 20 mg daily. Hold diuretics for now pending further evaluation by cardiology. Hyperlipidemia: Continue home pravastatin 20 mg daily. Lipid panel pending for the morning Full code Lovenox 40 mg subcu daily Regular diet, n.p.o. at midnight -Surrogate decision maker is her daughter Eduarda. She would for her make decisions than her . Daughter at bedside along with who agree with this decision.
[2024-07-20] MEDS: ENOXAPARIN 40MG/0.4ML SYRINGE 40 MG SUBCUT (22:44)
[2024-07-20] MEDS: ASPIRIN 325MG TABLET 325 MG PO (22:44)
[2024-07-20 23:47] LABS: Troponin I 0.05 ng/ml (0.00-0.034)
[2024-07-21] VITALS (9 sets, daily range): BP systolic 120–150; BP diastolic 65–83; PULSE 50–67; RESP 18–20; TEMP 36.4–36.6; O2SAT 97–100; BMI 20.1
--- NOTE | 2024-07-21 02:03 | PC.NURSE ---
Patient arrived to floor via wheelchair from ED at 20:35.
[2024-07-21 07:13] LABS: Basophils # 0.1 K/mm3 (0-0.2); Basophils % 0.8 % (0.1-2.0); Eosinophils # 0.1 K/mm3 (0.0-0.4); Eosinophils % 1.2 % (0.1-12.0); Hematocrit 34.1 % (37.0-47.0); Lymphocytes # 2.9 K/mm3 (0.7-4.5); Mean Corpuscular HGB Conc 34.5 g/dL (31.8-35.4); Mean Corpuscular Hemoglobin 31.4 pg (27.0-31.2); Mean Corpuscular Volume 91.1 fl (81-99); Mean Platelet Volume 8.8 fl (7.4-10.4); Monocytes # 0.4 K/mm3 (0.1-1.0); Neutrophils # 2.8 K/mm3 (1.8-7.8); Platelet Count 165 K/mm3 (142-424); Red Blood Count 3.74 M/mm3 (4.20-5.40); Red Cell Distribution Width 13.9 % (11.5-17.5); White Blood Count 6.3 K/mm3 (4.8-10.8)
--- NOTE | 2024-07-21 07:13 | CA_ITS ---
APPROVED REPORT EXAM: Comprehensive 2D, Doppler, and color-flow Echocardiogram Online Merchandiser: Mikki Martin CRT Ht: 5 ft 6 in Wt: 125lbs BSA: 1.64 BP: 142/85 mmHg Indications: Syncope, Palpitations, Hyperlipidemia, Hypertension/HDD 2D Dimensions Left Atrium 2.42 cm LVEF (Ojeda's) 60.30 % LVOT 1.87 cm (M/F) 1.5-2.5 LV Volume 75.00 mL LA Volume 29.40 mL LA Volume Index 17.90 mL/m2 (M/F) 16-34 EF AP4 69.30 % EF AP2 49.5 % EF BP 60.3 % GL Strain -21.1 % M-Mode Dimensions RVDd 2.03 cm (0.9-2.6) LVDd 3.33 cm (3.5-5.7) Ao Diam 3.37 cm (2.0-3.7) LVDs 2.40 cm (3.5-5.7) IVSd 1.47 cm (0.6-1.1) PWd 1.10 cm (0.6-1.1) EF (Teich) 55.20% FS 27.90% EDV (Teich) 45.10 mL TAPSE 1.40 (<1.7) ESV (Teich) 20.20 mL LV Diastology E Decel Time 81 (160-240 msec) E/A Ratio 0.65 MED E' 8.6 (>= 7 cm/sec) MED A' 16.20 cm/s E'/MED E' Ratio 5.98 (<= 14) LAT E' 8.1 (>= 10 cm/sec) LAT A' 14.80 cm/s E/LAT E' Ratio 6.35 (<= 14) Aortic Valve AoV Peak Rishi. 117.0 (50-130 cm/s) AO Peak GR. 5.50 mmHg Mitral Valve MV E Max Rishi. 51.0 (40-130 cm/s) MV A Velocity 79.0 (40-130 cm/s) E/A Ratio 0.65 MV Decel. Time 81 (160-240 ms) Tricuspid Valve TR P. Velocity 266.00 cm/s RAP Estimate 10.00 mmHg RVSP 38.20 mmHg Left Ventricle The left ventricle is normal size. The left ventricular systolic function is normal. The left ventricular ejection fraction is within the normal range. There is increased LV wall thickness. There is normal LV segmental wall motion. Transmitral Doppler flow pattern suggests impaired LV relaxation. LVEF is 55%. Right Ventricle Right ventricle is mildly dilated. Right ventricle is mildly hypokinetic. Atria The left atrium size is normal. The right atrium size is normal. There is no Doppler evidence of interatrial shunt. Aortic Valve The aortic valve is mildly thickened. There is no aortic valvular stenosis. No aortic regurgitation is present. Mitral Valve Mild bileaflet prolapse is possibly present. The mitral valve leaflets are mildly thickened. No evidence of mitral valve stenosis. Mild to moderate mitral regurgitation. Tricuspid Valve The tricuspid valve leaflets are thin and pliable. Trace tricuspid regurgitation. There is insufficient TR jet to estimate RVSP. Pulmonic Valve The pulmonary valve is normal in structure. Trace pulmonic regurgitation. Great Vessels The aortic root is normal in size. The ascending aorta is normal in size. IVC is normal in size and collapses >50% with inspiration. Pericardium There is no pericardial effusion. Other Information Study Quality: Fair Conclusion Normal LV systolic function. Mild RV dilation with mild reduction in RV function. Mild bileaflet MV prolapse is possibly present. Mild to moderate MR. Electronically signed by : Josephine Ewing MD 07/22/2024 23:48:04
--- NOTE | 2024-07-21 07:23 | HMH.PHAINT1 ---
Pharmacy Intervention Comments: HOME MEDICATIONS VERIFIED VIA OUTPATIENT PHARMACY AND PATIENT INTERVIEW
[2024-07-21 07:24] LABS: Hemoglobin 11.7 g/dL (12.2-16.2)
[2024-07-21 07:36] LABS: Alanine Aminotransferase 32 U/L (12-78); Albumin Level 3.3 g/dl (3.5-5.0); Albumin/Globulin Ratio 1.4 (1.1-1.8); Alkaline Phosphatase 47 U/L (38-126); Anion Gap 7.8 mEq/L (5-15); Aspartate Amino Transferase 25 U/L (14-36); Bilirubin,Total 0.6 mg/dl (0.2-1.3); Blood Urea Nitrogen 24 mg/dl (7-17); Calcium 8.4 mg/dl (8.4-10.2); Carbon Dioxide 28 mmol/L (22.0-30.0); Chloride 107 mmol/L (98-107); Chol/HDL Ratio 3.4 (1-3.5); Cholesterol 184 mg/dl (140-200); Creatinine Clearance Estimated 45 mL/min (50-200); Estimated Glomerular Filt Rate 70 ml/min (>60); GFR (African American) 85 ML/MIN (>60); Globulin 2.4 g/dL (1.3-3.2); Glucose 90 mg/dl (74-100); HDL Cholesterol 54 mg/dl (40-60); Magnesium 1.8 mg/dl (1.6-2.3); Potassium 3.8 mmoL/L (3.5-5.1); Sodium 139 mmol/L (136-145); Total Protein,Serum 5.7 g/dl (6.3-8.2); Triglycerides 65 mg/dl (30-150); VLDL Cholesterol 13 mg/dL (0-40)
[2024-07-21 07:46] LABS: Direct LDL Cholesterol 107.66 mg/dL (100-129)
[2024-07-21] MEDS: LISINOPRIL 20MG TABLET 20 MG PO (09:29)
[2024-07-21] MEDS: ASPIRIN EC 81MG TABLET 81 MG PO (09:29)
--- NOTE | 2024-07-21 10:15 | CT_ITS ---
APPROVED REPORT Receiving Coordinator: CLINICAL INDICATION Chest Pain TECHNIQUE Image Acquisition: A 128 slice MDCT scanner ([employer] View) was used for data acquisition. A noncontrast coronary calcium scan was performed. A CT attenuation threshold of 130 Hounsfield units (HU) was used for the detection of calcium in contiguous voxels of 1 sq mm in area to be counted as individual lesions. Bolus tracking in the ascending aorta with a threshold of 180 HU was performed. Immediately afterwards, ECG synchronized cardiac CT was then performed from the cardiac base to apex using retrospective gating with ECG tube current modulation. A total of 85 mL of Isovue 370 mg/mL contrast medium was administered at 5 mL/sec followed by a saline flush using a biphasic injection protocol. A tube voltage of 120 KVp was used. Image Reconstruction Transaxial images were reconstructed at 0.67 mm slide thickness. Data was reviewed interactively on an advanced workstation capable of 2 and 3-dimensional displays in all conventional reconstruction formats, including multiplanar reformations, maximum intensity projections, curved multiplanar reformations, and volume rendered reconstructions. When applicable, selected routine images describing the relevant coronary anatomy and pathology were saved and sent to PACS. Complications None Technical Quality Overall image quality was good. Coronary artery opacification was adequate. Total DLP (Dose-Length Product) is 1799.0 mGy-cm. The reported value represents the total of one or more individual components during the CT acquisition of this date and at this time, and as such, the same value may appear in more than one CT report depending on the interpreting/reporting physicians. COMPARISON None FINDINGS CT Coronary Calcium Scoring LMA (Left Main Artery) = 0 LAD (Left Anterior Descending) = 0 LCX (Left Coronary Circumflex) = 0 RCA (Right Coronary Artery) = 0 Total Calcium Score = 0 using the AJ-130 method. The interpretation of the calcium heart score is based on the following continuum*: 0 = no calcified plaque detected (risk of coronary artery disease is very low ??? less than 5%) 1-10 = calcium detected in extremely minimal levels (risk of coronary diseases is still low ??? less than 10%) 11-100 = mild levels of plaque detected with certainty (mild or minimal narrowing of heart arteries is likely) 101-400 = definite,at least moderate levels of plaque detected (relatively high risk of a heart attack within 3-5 years) >401-999 = extensive levels of plaque detected (high risk of heart attack, high levels of vascular disease are present, high likelihood of at least one significant coronary narrowing) *The calcium heart score quantifies the burden of coronary calcification/plaque in the coronary arteries. The calcium heart score is not able to evaluate the presence or burden of non-calcified (i.e. soft) plaque. There is mild calcification in the mitral annulus and the descending thoracic aorta. Coronary CT Angiography The coronary arterial system is right dominant. Quantitative Stenosis Grading: Left Main (LM): The left main originates normally from the left sinus of Valsalva. The LM trifurcates into the left anterior descending artery, ramus intermedius, and left circumflex artery. The LM is patent with no evidence of atherosclerosis. Left Anterior Descending (LAD) and Diagonal Branches: The LAD gives off 2 diagonal branch(es). The LAD and its branches are patent with no evidence of atherosclerosis. There is no evidence of LAD-myocardial bridge. Ramus-intermedius (RI): The RI is patent. Left Circumflex (LCX) and Obtuse Marginals (OM): The LCX gives off 1 Obtuse Marginal (OM) branch(es). The LCX and its branches are patent with no evidence of atherosclerosis. Right Coronary Artery (RCA): The RCA originates normally from the right sinus of Valsalva. The RCA gives off a posterior descending artery (PDA) and posterolateral (PL) branches. The RCA and its branches are patent with no evidence of atherosclerosis. Non-Coronary Cardiac Findings: Analysis of the left ventricular (LV) structure and function was performed after 3-D reconstruction of the LV from axial images, with user-corrected automatic contouring for assessment of LV volumes and user-defined reconstruction from oblique planes for measurement of 3-D cardiac structure and function. -The left ventricle systolic function is normal. -There is no left atrial appendage filling defect. Two right pulmonary veins and two left pulmonary veins drain normally into the left atrium. -No pericardial thickening or calcification. -Central and branch pulmonary arteries in the [id number] are unremarkable. -Thoracic aorta within the visualized thoracic aortic-branches in the [id number] is unremarkable. Extracardiac Structures Incidental finding of multiple hypodense, well circumscribed hepatic lesions. These findings likely represent hepatic cysts. Correlate findings with new or recent CT chest and/or abdomen. IMPRESSION -Absence of coronary calcification with an Agatston score = 0 using the AJ-130 method. -No evidence of significant flow-limiting atherosclerosis of the coronary arteries. -CAD-RADS 0. Management recommendations per ACC/AHA guidelines*, as clinically appropriate. -Incidental finding of multiple hypodense, well circumscribed hepatic lesions. These findings likely represent hepatic cysts. Correlate findings with new or recent CT chest and/or abdomen. *Recommendations: CAD RADS 0: Reassurance. Consider non-atherosclerotic causes of chest pain. CAD RADS 1: Consider non-atherosclerotic causes of chest pain. Consider preventive therapy and risk factor modification. CAD RADS 2: Consider non-atherosclerotic causes of chest pain. Consider preventive therapy and risk factor modification, particularly for patients with nonobstructive plaque in multiple segments. CAD RADS 3: Consider further functional testing. Consider symptom-guided anti-ischemic and preventive pharmacotherapy as well as risk factor modification per published guideline statements. CAD RADS 4A: Consider further functional testing or invasive coronary angiography with revascularization per published guideline statements. Consider symptom-guided anti-ischemic and preventive pharmacotherapy as well as risk factor modification per published guideline statements. CAD RADS 4B: Invasive coronary angiography recommended with revascularization per published guideline statements. Consider symptom-guided anti-ischemic and preventive pharmacotherapy as well as risk factor modification per published guideline statements. CAD RADS 5: Consider invasive angiography and/or viability assessment with revascularization per published guideline statements. Consider symptom-guided anti-ischemic and preventive pharmacotherapy as well as risk factor modification per published guideline statements. CRITICAL RESULT None COMMUNICATION Per this written report The coronary and cardiac findings of this CCTA were reviewed, reported, and signed by Hilario Ewing MD (Manager Metrology) Conclusion Electronically signed by : Josephine Ewing MD 07/21/2024 13:18:16
--- NOTE | 2024-07-21 10:30 | HMH.ITSTN ---
CORONARY MEDICATION PROTOCOL TOOK TO NURSING
[2024-07-21] MEDS: IVABRADINE HCL 7.5MG TABLET *IVABRADINE+METOPROLOL REGIMINE 15 MG PO (11:40)
[2024-07-21] MEDS: METOPROLOL TARTRATE 50MG TABLET *IVABRADINE+METOPROLOL REGIMINE 50 MG PO (11:41)
--- NOTE | 2024-07-21 11:45 | P.CONCA_ITS ---
History of Present Illness History of Present Illness Consult date: 07/21/24 Requesting physician: Ricky Conklin Chief complaint: syncope History of present illness: This is a 74-year-old white female who presented to the emergency department after a syncopal episode and seeing her family doctor. The patient reports that on Friday around 1130 she was outside talking to her grandson when she had sudden onset of dizziness and syncope. The patient states when she lost consciousness she fell on her back. She denies any trauma. She denies any chest pain or pressure. She denies any shortness of breath or edema. She denies any fever, chills, nausea, vomiting, diarrhea, PND or orthopnea. She went to see her PCP the next day he primo labs and she had an elevated troponin and he recommended that she come to the emergency department for further evaluation. The patient did have a slight elevation in her troponin and her BNP. Her blood pressure was stable and she denied any symptoms at that time. This morning she is still denying any symptoms. [facility] Disclaimer: The information contained in this section may have been updated after the patient was seen, as this information can be updated by other users. Medical History Hyperlipidemia Hypertension Surgical History Hx of colonoscopy Family History Father Cancer Father Mother Social History (Updated 07/20/24 @ 22:10 by Randi Graham RN) Smoking Status: Never smoker alcohol intake: never substance use type: denies use current occupational status: retired Travel in the last 8 weeks: None Review of Systems Review of Systems Review of systems:: pertinent systems reviewed and negative unless documented below Constitutional Constitutional: Reports system reviewed and no additional complaints, except as documented Eyes Eyes: Reports system reviewed and no additional complaints, except as documented ENT Ears, Nose, Mouth, and Throat: Reports system reviewed and no additional complaints, except as documented *Cardiovascular Cardiovascular: Reports system reviewed and no additional complaints, except as documented and Reports syncope *Respiratory Respiratory: Reports system reviewed and no additional complaints, except as documented *Gastrointestinal Gastrointestinal: Reports system reviewed and no additional complaints, except as documented *Genitourinary Genitourinary: Reports system reviewed and no additional complaints, except as documented *Musculoskeletal Musculoskeletal: Reports system reviewed and no additional complaints, except as documented Integumentary/Breasts Skin/Breast: Reports system reviewed and no additional complaints, except as documented *Neurologic Neurologic: Reports system reviewed and no additional complaints, except as documented and Reports syncope Psychiatric Psychiatric: Reports system reviewed and no additional complaints, except as documented Endocrine Endocrine: Reports system reviewed and no additional complaints, except as documented Hematologic/Lymphatic Hematologic/Lymphatic: Reports system reviewed and no additional complaints, except as documented Allergic/Immunologic Allergic/Immunologic: Reports system reviewed and no additional complaints, except as documented Exam Data for Last 24 hours Vital signs and Labs for Last 24 Hours: Temp Pulse Resp BP Pulse Ox O2 Del Method 97.5 F L 67 20 150/83 H 99 Room Air 07/21/24 08:00 07/21/24 08:00 07/21/24 08:00 07/21/24 08:00 07/21/24 08:00 07/21/24 09:37 Laboratory Results - last 24 hr 07/20/24 17:30: PT 10.3, INR 0.91, Magnesium 1.8, Troponin I 0.05 H, NT-Pro-B Natriuret Pep 1760 H, TSH 4.07 D, Free T4 Index 2.9 L, Thyroxine (T4) 8.8, T3 Uptake 33 07/20/24 18:18: Urine Color Yellow, Urine Appearance Clear, Urine pH 5.5, Ur Specific [place] 1.010, Urine Protein Negative, Urine Glucose (UA) Negative, Urine Ketones Negative, Urine Blood Negative, Urine Nitrate Negative, Urine Bilirubin Negative, Urine Urobilinogen 0.2, Ur Leukocyte Esterase Negative, Urine RBC 3-5, Urine WBC Occasional, Ur Squamous Epith Cells Occasional, Urine Opiates Screen Negative, Urine Methadone Screen Negative, Ur Barbituates Screen Negative, Ur Phencyclidine Scrn Negative, Ur Amphetamines Screen Negative, U Benzodiazepines Scrn Negative, Urine Cocaine Screen Negative, U Marijuana (THC) Screen Negative, SARS-CoV-2 (PCR) Not detected, Influenza A Untype (PCR) Not detected, Influenza Type B (PCR) Not detected 07/20/24 20:13: Troponin I 0.04 H 07/20/24 23:08: Troponin I 0.05 H 07/21/24 06:12: WBC 6.3, RBC 3.74 L, Hgb 11.7 L D, Hct 34.1 L, MCV 91.1, MCH 31.4 H, MCHC 34.5, RDW 13.9, Plt Count 165, MPV 8.8, Neut % (Auto) 45.0, Lymph % (Auto) 46.0, [place] % (Auto) 7.0, Eos % (Auto) 1.2, Baso % (Auto) 0.8, Neut # (Auto) 2.8, Lymph # (Auto) 2.9, [place] # (Auto) 0.4, Eos # (Auto) 0.1, Baso # (Auto) 0.1, Sodium 139, Potassium 3.8, Chloride 107, Carbon Dioxide 28, Anion Gap 7.8, BUN 24 H, Creatinine 0.80, Estimated Creat Clear 45, Estimated GFR 70, Est GFR ( Amer) 85 D, Glucose 90, Calcium 8.4, Magnesium 1.8, Total Bilirubin 0.6, AST 25, ALT 32 D, Alkaline Phosphatase 47, Total Protein 5.7 L, Albumin 3.3 L D, Globulin 2.4, Albumin/Globulin Ratio 1.4, Triglycerides 65, Cholesterol 184, LDL Cholesterol Direct 107.66, VLDL Cholesterol 13, HDL Choles terol 54, Cholesterol/HDL Ratio 3.4 I & O for Last 24 hours: Intake & Output 07/18/24 07/19/24 07/20/24 07/21/24 23:59 23:59 23:59 23:59 Output Total 0 / 0 Balance 0 / 0 Weight 126 lb 1.6 oz 125 lb 7.088 oz Constitutional Constitutional: no acute distress and average body habitus *Routine HEENT Exam Head: Present normocephalic and atraumatic ENT: Present mucous membranes moist *Routine Neck Exam Neck: Present supple, full ROM and normal carotid upstroke; Absent JVD, carotid bruit or lymphadenopathy *Routine Respiratory Exam Respiratory: Present CTA bilaterally, normal respiratory effort, able to speak in complete sentences and symmetric chest movement *Routine Cardiovascular Exam Cardiovascular: Present RRR, Normal S1 and Normal S2; Absent murmur or gallop *Routine Abdominal Exam Abdominal: Present soft and normoactive bowel sounds; Absent tenderness, distended or organomegaly *Routine Extremities Exam Extremities: Present full ROM, pulses intact and normal capillary refill; Absent cyanosis, clubbing or edema *Routine Skin Exam Skin: Present intact and warm; Absent erythema *Routine Neurological Exam Neurological: Present alert, oriented X3 and CN II-XII intact; Absent sensory deficit or motor deficit Routine Psychiatric Exam Psychiatric: Present normal affect Meds Home Medications and Allergies Home Medications ?Medication ?Instructions ?Recorded ?Confirmed ?Type pravastatin 20 mg tablet 20 mg PO DAILY 06/16/24 07/21/24 History lisinopril 20 mg tablet 20 mg PO DAILY #90 tabs 07/20/24 07/21/24 Rx multivitamin 1 tab PO DAILY 07/20/24 07/21/24 History New Prescriptions to Start Prescriptions: Allergies Allergy/AdvReac Type Severity Reaction Status Date / Time No Known Allergies Allergy Verified 07/20/24 10:00 Assessment and Plan *Assessment and plan (1) Syncope: Status: Acute Qualifiers: Syncope type: unspecified Qualified Code(s): R55 - Syncope and collapse Category: Medical Code(s): R55 - Syncope and collapse (2) Elevated troponin I level: Status: Acute Category: Medical Code(s): R79.89 - Other specified abnormal findings of blood chemistry (3) Elevated brain natriuretic peptide (BNP) level: Status: Acute Category: Medical Code(s): R79.89 - Other specified abnormal findings of blood chemistry (4) Hypertension: Status: Chronic Qualifiers: Hypertension type: primary hypertension Qualified Code(s): I10 - Essential (primary) hypertension Category: Medical Code(s): I10 - Essential (primary) hypertension (5) Hyperlipidemia: Status: Chronic Qualifiers: Hyperlipidemia type: mixed hyperlipidemia Qualified Code(s): E78.2 - Mixed hyperlipidemia Category: Medical Code(s): E78.5 - Hyperlipidemia, unspecified Plan Plan: 1. The patient had an episode of syncope on Friday. She reports that she was significantly dizzy prior to her syncopal episode and then she passed out. Her grandson reports that she was unconscious for about 1 to 2 minutes and then woke up. She states she felt fine and went on and cleaned her house. She saw her primary care provider the next day who primo labs and referred her to the emergency department due to an elevated troponin. The patient troponin and BNP were both elevated. Will plan to proceed with CCTA today to rule out significant coronary artery disease as the cause of her syncope. 2. Will obtain an echocardiogram to evaluate her LV function due to her elevated BNP and syncope. 3. She will likely need an event monitor in place at discharge due to her syncope. 4. Her blood pressure is well-controlled at this time. 6. Her LDL goal is less than 100. Her LDL was 107. 7. Further recommendations will be made pending the patient's response to treatment and the results of her CCTA and echocardiogram today. Thank you for the opportunity to have participate in the care of this patient. All recommendations and orders are per Dr. Ewing. Addendum: CCTA shows no CAD and calcium score of 0. Echo shows normal EF, mild MR and mild RV dilation. pt can be discharged from the hospital today with [address] fu in cardiology clinic in 1-2 weeks on outpatient basis.
[2024-07-21] MEDS: SODIUM CHLORIDE 0.9% 10ML SYR (RAD ONLY) 10 ML IV (13:11)
[2024-07-21] MEDS: IOPAMIDOL-370 (76%);100ML BOTTLE 85 ML IV (13:11)
[2024-07-21] MEDS: 0.9 % SODIUM CHLORIDE 50 ML VIAL IV (13:11)
--- NOTE | 2024-07-21 13:49 | HMH.PTEV ---
Physical Therapy Evaluation Rehab PT IP Evaluation Start: 07/21/24 10:59 Freq: ONCE Status: Active Protocol: Document 07/21/24 13:45 PHOMayteANDREW (Rec: 07/21/24 13:49 PHORANDREW [id number]) Subjective/History History History 4-year-old female who initially presented to her primary care doctor's office today because of an episode of syncope yesterday at about 1130. She was talking to her son and had been standing for at least 15 minutes when she became dizzy lost consciousness and fell. She has PMH of HLD and HTN. She reports she lives with her , 1 [address]HA the home, and she is generally independent with all mobility and ambulation at baseline without an AD. Subjective Subjective Pt has no c/o pain, dizziness, or lightheadedness at this time and readily agrees to treatment. New diagnosis of cancer in past 12 No months? Rehab PT IP Eval Objective Appearance Patient Behavior Appropriate Patient Orientation Person,Place,Time Difficulty following instructions none Speech Pattern Clear Ambulation Patient Able to Ambulate Yes Ambulation Observation IP General Gait Pattern Observation No Deviations/Normal Ambulation Distance (feet) 200 Ambulation Assistive Device None Ambulation Ability Independent Balance Ability to Arise Able, w/o using arms Sitting Balance Steady, safe Standing Balance Narrow stance w/o support Dynamic Sitting Balance Ability Good Dynamic Standing Balance Ability Good Transfers Bed Transfer Ability Independent Chair Transfer Ability Independent Sit to Stand Bed Transfer Ability Independent Sit to Stand Chair Transfer Ability Independent ROM All Extremities PT ROM Status WFL MMT All Extremities PT MMT WFL Rehab PT IP prob,goals,plan Problems Date of Evaluation: 07/21/24 Discharge Plan PT Discharge Plan Pt is currently independent with all mobility and at baseline for activity levels. She has no current inpatient therapy needs at this time and is appropriate to return home once medically stable for d/c . Eval Complexity Eval Charge Codes 90464 - High Complexity PHYSICIAN CERTIFICATION: I certify the specified therapy services for Emma Clements are required, authorized, and reviewed every 30 days.
--- NOTE | 2024-07-21 14:12 | HMH.OTEV ---
OT Inpatient Evaluation Rehab OT IP Evaluation Start: 07/21/24 11:00 Freq: ONCE Status: Active Protocol: Document 07/21/24 14:09 MEÑO (Rec: 07/21/24 14:12 [facility] [id number]) Rehab OT IP Assessment Subjective History Pt oriented x 3 on arrival. Pt agreeable to engage in therapy evaluation. Pt admitted on 07/20/24 due to syncope episode at home. History and physical report: Ms. Grider is a 74-year-old female who initially presented to her primary care doctor's office today because of an episode of syncope yesterday at about 1130. She was talking to her son and had been standing for at least 15 minutes when she became dizzy lost consciousness and fell. Denies any head trauma. Denies any chest pain, nausea, vomiting, shortness of breath at that time. She was called today after getting labs obtained by her PCP where she was noted to have a mild elevation in troponin at 0.07. Presentation to the ER, patient is chest pain-free. Stable on room air. Normal blood pressure with systolics in the 130s. Overall feeling well. Reports that her event yesterday lasted about 2 minutes with a regaining consciousness shortly thereafter. No postictal state or prodrome. States she has had over the past year episodes of dizziness and vomiting but never passed out before. Denies any episodes of chest pain, chest pressure, arm weakness or pain. Only history of hypertension and hyperlipidemia. Workup in the ER concerning for elevated BNP. Medicine consulted for evaluation and admission overnight for observation. Subjective I can do anything I need to. Prior to being in the hospital , pt lived at home with her . Pt claims normally she is independent with all ADLs and IADLs. Pt did not require any type of AE during functional transfers. Pt also still drives. Objective Patient Orientation Person,Place,Birthday Right Upper Extremity Gross ROM WFL Left Upper Extremity Gross ROM WFL Bed Mobility bed mobility-scooting,bed mobility - supine/sit Assist Level Supervision/Stand by Transfer Training Sit/Stand Transfer Assist Level Supervision/Stand by Lower Body Dressing Ability Standby Assistance Performing Toilet Hygiene Ability Standby Assistance Overall Commode/Toilet Transfer Ability Standby Assistance Commode/Toilet Transfer Technique Sit to/from Ambulatory Decrease in Endurance No Rehab OT IP prob,goals,plan Problems Date of Evaluation: 07/21/24 Rehab Potential Rehab Potential Innapropriate for Skilled Therapy Discharge Plan OT Discharge Plan Pt appears to be at her baseline with functional transfers and ADL independence . Pt can return home with once she is medically stable for discharge. Eval Complexity Eval Charge Codes 07203 - Low Complexity PHYSICIAN CERTIFICATION: I certify the specified therapy services for Emma Clements are required, authorized, and reviewed every 30 days.
--- NOTE | 2024-07-21 16:05 | P.DS_ITS ---
General Admission date:: 07/20/24 HPI HPI HPI: Ms. Grider is a 74-year-old female who initially presented to her primary care doctor's office today because of an episode of syncope yesterday at about 1130. She was talking to her son and had been standing for at least 15 minutes when she became dizzy lost consciousness and fell. Denies any head trauma. Denies any chest pain, nausea, vomiting, shortness of breath at that time. She was called today after getting labs obtained by her PCP where she was noted to have a mild elevation in troponin at 0.07. Presentation to the ER, patient is chest pain-free. Stable on room air. Normal blood pressure with systolics in the 130s. Overall feeling well. Reports that her event yesterday lasted about 2 minutes with a regaining consciousness shortly thereafter. No postictal state or prodrome. States she has had over the past year episodes of dizziness and vomiting but never passed out before. Denies any episodes of chest pain, chest pressure, arm weakness or pain. Only history of hypertension and hyperlipidemia. Workup in the ER concerning for elevated BNP. Medicine consulted for evaluation and admission overnight for observation. On arrival to the floor, patient's and daughter at bedside. Overall well. Alert and oriented x 4. Denies emesis, nausea, diarrhea, chest pain, confusion. Hospital Course Hospital Course Hospital Course: 74-year-old female who presented with syncopal event. Reports having had events over the past year of dizziness and vomiting. Presented to the ER, found to have detectable troponin, elevated BNP. Discussed case with ER physician, request admission for cardiology eval and monitoring overnight. I agreed to admit. Presentation concerning for anginal equivalent or cardiogenic etiology. Further management pending cards eval in the morning. Problems addressed as follows: Syncope Elevated troponin - Unclear etiology. Differential includes cardiogenic from abnormal rhythm or ischemia, vasovagal, neurogenic, dehydration. Will hold diuretic for now. Patient's troponin initially elevated at 0.07, has trended down to 0.05. Given aspirin load. BNP elevated at 1700. Does not appear clinically volume overloaded. Lungs dry on exam with no crackles, no peripheral edema. No significant edema or effusions on chest imaging. -Kidney function relatively normal with creatinine 1 however BUN elevated to 29 given concern for prerenal state. -Electrolytes normal with potassium 3.6, magnesium 1.8. No signs of anemia. Hemoglobin 14. -EKG reviewed, no ischemic changes; normal sinus rhythm -ECHO Normal LV systolic function. Mild RV dilation with mild reduction in RV function. Mild bileaflet MV prolapse is possibly present. Mild to moderate MR. - TSH normal. -Cardiology consulted, performed CCTA which did not show CAD, calcium score 0. - No further episodes of dizziness, syncope during admission. Patient advised to stay well hydration with free water. - PT/OT consulted, did not recommend rehab as patient is at baseline. - Discharged with 14 day event monitor, will follow-up with cardiology in 2 weeks. Hypertension: Continue lisinopril 20 mg daily. Hyperlipidemia: Continue home pravastatin 20 mg daily. Exam Data for Last 24 hours Vital signs and Labs for Last 24 Hours: Temp Pulse Resp BP Pulse Ox O2 Del Method 97.5 F L 50 L 20 127/73 100 Room Air 07/21/24 08:00 07/21/24 15:03 07/21/24 08:00 07/21/24 15:03 07/21/24 13:10 07/21/24 13:22 Laboratory Results - last 24 hr 07/20/24 17:30: PT 10.3, INR 0.91, Magnesium 1.8, Troponin I 0.05 H, NT-Pro-B Natriuret Pep 1760 H, TSH 4.07 D, Free T4 Index 2.9 L, Thyroxine (T4) 8.8, T3 Uptake 33 07/20/24 18:18: Urine Color Yellow, Urine Appearance Clear, Urine pH 5.5, Ur Specific [place] 1.010, Urine Protein Negative, Urine Glucose (UA) Negative, Urine Ketones Negative, Urine Blood Negative, Urine Nitrate Negative, Urine Bilirubin Negative, Urine Urobilinogen 0.2, Ur Leukocyte Esterase Negative, Urine RBC 3-5, Urine WBC Occasional, Ur Squamous Epith Cells Occasional, Urine Opiates Screen Negative, Urine Methadone Screen Negative, Ur Barbituates Screen Negative, Ur Phencyclidine Scrn Negative, Ur Amphetamines Screen Negative, U Benzodiazepines Scrn Negative, Urine Cocaine Screen Negative, U Marijuana (THC) Screen Negative, SARS-CoV-2 (PCR) Not detected, Influenza A Untype (PCR) Not detected, Influenza Type B (PCR) Not detected 07/20/24 20:13: Troponin I 0.04 H 07/20/24 23:08: Troponin I 0.05 H 07/21/24 06:12: WBC 6.3, RBC 3.74 L, Hgb 11.7 L D, Hct 34.1 L, MCV 91.1, MCH 31.4 H, MCHC 34.5, RDW 13.9, Plt Count 165, MPV 8.8, Neut % (Auto) 45.0, Lymph % (Auto) 46.0, Miller % (Auto) 7.0, Eos % (Auto) 1.2, Baso % (Auto) 0.8, Neut # (Auto) 2.8, Lymph # (Auto) 2.9, Miller # (Auto) 0.4, Eos # (Auto) 0.1, Baso # (Auto) 0.1, Sodium 139, Potassium 3.8, Chloride 107, Carbon Dioxide 28, Anion Gap 7.8, BUN 24 H, Creatinine 0.80, Estimated Creat Clear 45, Estimated GFR 70, Est GFR ( Amer) 85 D, Glucose 90, Calcium 8.4, Magnesium 1.8, Total Bilirubin 0.6, AST 25, ALT 32 D, Alkaline Phosphatase 47, Total Protein 5.7 L, Albumin 3.3 L D, Globulin 2.4, Albumin/Globulin Ratio 1.4, Triglycerides 65, Cholesterol 184, LDL Cholesterol Direct 107.66, VLDL Cholesterol 13, HDL Cholesterol 54, Cholesterol/HDL Ratio 3.4 Temp Pulse Resp BP Pulse Ox O2 Del Method 97.5 F L 67 20 150/83 H 99 Room Air 07/21/24 08:00 07/21/24 08:00 07/21/24 08:00 07/21/24 08:00 07/21/24 08:00 07/21/24 09:37 Laboratory Results - last 24 hr 07/20/24 17:30: PT 10.3, INR 0.91, Magnesium 1.8, Troponin I 0.05 H, NT-Pro-B Natriuret Pep 1760 H, TSH 4.07 D, Free T4 Index 2.9 L, Thyroxine (T4) 8.8, T3 Uptake 33 07/20/24 18:18: Urine Color Yellow, Urine Appearance Clear, Urine pH 5.5, Ur Specific [place] 1.010, Urine Protein Negative, Urine Glucose (UA) Negative, Urine Ketones Negative, Urine Blood Negative, Urine Nitrate Negative, Urine Bilirubin Negative, Urine Urobilinogen 0.2, Ur Leukocyte Esterase Negative, Urine RBC 3-5, Urine WBC Occasional, Ur Squamous Epith Cells Occasional, Urine Opiates Screen Negative, Urine Methadone Screen Negative, Ur Barbituates Screen Negative, Ur Phencyclidine Scrn Negative, Ur Amphetamines Screen Negative, U Benzodiazepines Scrn Negative, Urine Cocaine Screen Negative, U Marijuana (THC) Screen Negative, SARS-CoV-2 (PCR) Not detected, Influenza A Untype (PCR) Not detected, Influenza Type B (PCR) Not detected 07/20/24 20:13: Troponin I 0.04 H 07/20/24 23:08: Troponin I 0.05 H 07/21/24 06:12: WBC 6.3, RBC 3.74 L, Hgb 11.7 L D, Hct 34.1 L, MCV 91.1, MCH 31.4 H, MCHC 34.5, RDW 13.9, Plt Count 165, MPV 8.8, Neut % (Auto) 45.0, Lymph % (Auto) 46.0, Miller % (Auto) 7.0, Eos % (Auto) 1.2, Baso % (Auto) 0.8, Neut # (Auto) 2.8, Lymph # (Auto) 2.9, Miller # (Auto) 0.4, Eos # (Auto) 0.1, Baso # (Auto) 0.1, Sodium 139, Potassium 3.8, Chloride 107, Carbon Dioxide 28, Anion Gap 7.8, BUN 24 H, Creatinine 0.80, Estimated Creat Clear 45, Estimated GFR 70, Est GFR ( Amer) 85 D, Glucose 90, Calcium 8.4, Magnesium 1.8, Total Bilirubin 0.6, AST 25, ALT 32 D, Alkaline Phosphatase 47, Total Protein 5.7 L, Albumin 3.3 L D, Globulin 2.4, Albumin/Globulin Ratio 1.4, Triglycerides 65, Cholesterol 184, LDL Cholesterol Direct 107.66, VLDL Cholesterol 13, HDL Cholesterol 54, Cholesterol/HDL Ratio 3.4 I & O for Last 24 hours: Intake & Output 07/18/24 07/19/24 07/20/24 07/21/24 23:59 23:59 23:59 23:59 Output Total 0 / 0 Balance 0 / 0 Weight 57.198 kg 56.9 kg Intake & Output 07/18/24 07/19/24 07/20/24 07/21/24 23:59 23:59 23:59 23:59 Output Total 0 / 0 Balance 0 / 0 Weight 126 lb 1.6 oz 125 lb 7.088 oz Constitutional Constitutional: no acute distress and average body habitus *Routine HEENT Exam Head: Present normocephalic and atraumatic ENT: Present mucous membranes moist *Routine Neck Exam Neck: Present supple, full ROM and normal carotid upstroke; Absent JVD, carotid bruit or lymphadenopathy *Routine Respiratory Exam Respiratory: Present CTA bilaterally, normal respiratory effort, able to speak in complete sentences and symmetric chest movement *Routine Cardiovascular Exam Cardiovascular: Present RRR, Normal S1 and Normal S2; Absent murmur or gallop *Routine Abdominal Exam Abdominal: Present soft and normoactive bowel sounds; Absent tenderness, distended or organomegaly *Routine Extremities Exam Extremities: Present full ROM, pulses intact and normal capillary refill; Absent cyanosis, clubbing or edema *Routine Skin Exam Skin: Present intact and warm; Absent erythema *Routine Neurological Exam Neurological: Present alert, oriented X3 and CN II-XII intact; Absent sensory deficit or motor deficit Routine Psychiatric Exam Psychiatric: Present normal affect Results Data Completed and Pending Labs on day of discharge: Labs from last 24 hours 07/21/24 07/20/24 07/20/24 06:12 23:08 20:13 WBC 6.3 RBC 3.74 L Hgb 11.7 L D Hct 34.1 L MCV 91.1 MCH 31.4 H MCHC 34.5 RDW 13.9 Plt Count 165 MPV 8.8 Neut % (Auto) 45.0 Lymph % (Auto) 46.0 Miller % (Auto) 7.0 Eos % (Auto) 1.2 Baso % (Auto) 0.8 Neut # (Auto) 2.8 Lymph # (Auto) 2.9 Miller # (Auto) 0.4 Eos # (Auto) 0.1 Baso # (Auto) 0.1 PT INR Sodium 139 Potassium 3.8 Chloride 107 Carbon Dioxide 28 Anion Gap 7.8 BUN 24 H Creatinine 0.80 Estimated Creat Clear 45 Estimated GFR 70 Est GFR ( Amer) 85 D Glucose 90 Calcium 8.4 Magnesium 1.8 Total Bilirubin 0.6 AST 25 ALT 32 D Alkaline Phosphatase 47 Troponin I 0.05 H 0.04 H NT-Pro-B Natriuret Pep Total Protein 5.7 L Albumin 3.3 L D Globulin 2.4 Albumin/Globulin Ratio 1.4 Triglycerides 65 Cholesterol 184 LDL Cholesterol Direct 107.66 VLDL Cholesterol 13 HDL Cholesterol 54 Cholesterol/HDL Ratio 3.4 TSH Free T4 Index Thyroxine (T4) T3 Uptake Urine Color Urine Appearance Urine pH Ur Specific [place] Urine Protein Urine Glucose (UA) Urine Ketones Urine Blood Urine Nitrate Urine Bilirubin Urine Urobilinogen Ur Leukocyte Esterase Urine RBC Urine WBC Ur Squamous Epith Cells Urine Opiates Screen Urine Methadone Screen Ur Barbituates Screen Ur Phencyclidine Scrn Ur Amphetamines Screen U Benzodiazepines Scrn Urine Cocaine Screen U Marijuana (THC) Screen SARS-CoV-2 (PCR) Influenza A Untype (PCR) Influenza Type B (PCR) 07/20/24 07/20/24 18:18 17:30 WBC RBC Hgb Hct MCV MCH MCHC RDW Plt Count MPV Neut % (Auto) Lymph % (Auto) Miller % (Auto) Eos % (Auto) Baso % (Auto) Neut # (Auto) Lymph # (Auto) Miller # (Auto) Eos # (Auto) Baso # (Auto) PT 10.3 INR 0.91 Sodium Potassium Chloride Carbon Dioxide Anion Gap BUN Creatinine Estimated Creat Clear Estimated GFR Est GFR ( Amer) Glucose Calcium Magnesium 1.8 Total Bilirubin AST ALT Alkaline Phosphatase Troponin I 0.05 H NT-Pro-B Natriuret Pep 1760 H Total Protein Albumin Globulin Albumin/Globulin Ratio Triglycerides Cholesterol LDL Cholesterol Direct VLDL Cholesterol HDL Cholesterol Cholesterol/HDL Ratio TSH 4.07 D Free T4 Index 2.9 L Thyroxine (T4) 8.8 T3 Uptake 33 Urine Color Yellow Urine Appearance Clear Urine pH 5.5 Ur Specific [place] 1.010 Urine Protein Negative Urine Glucose (UA) Negative Urine Ketones Negative Urine Blood Negative Urine Nitrate Negative Urine Bilirubin Negative Urine Urobilinogen 0.2 Ur Leukocyte Esterase Negative Urine RBC 3-5 Urine WBC Occasional Ur Squamous Epith Cells Occasional Urine Opiates Screen Negative Urine Methadone Screen Negative Ur Barbituates Screen Negative Ur Phencyclidine Scrn Negative Ur Amphetamines Screen Negative U Benzodiazepines Scrn Negative Urine Cocaine Screen Negative U Marijuana (THC) Screen Negative SARS-CoV-2 (PCR) Not detected Influenza A Untype (PCR) Not detected Influenza Type B (PCR) Not detected DS: Diagnosis Discharge Diagnosis (1) Syncope: Status: Acute Code(s): R55 - Syncope and collapse Qualifiers: Syncope type: unspecified Qualified Code(s): R55 - Syncope and collapse (2) Elevated troponin I level: Status: Acute Code(s): R79.89 - Other specified abnormal findings of blood chemistry (3) Elevated brain natriuretic peptide (BNP) level: Status: Acute Code(s): R79.89 - Other specified abnormal findings of blood chemistry (4) Hypertension: Status: Chronic Code(s): I10 - Essential (primary) hypertension Qualifiers: Hypertension type: primary hypertension Qualified Code(s): I10 - Essential (primary) hypertension (5) Hyperlipidemia: Status: Chronic Code(s): E78.5 - Hyperlipidemia, unspecified Qualifiers: Hyperlipidemia type: mixed hyperlipidemia Qualified Code(s): E78.2 - Mixed hyperlipidemia Meds Home Medications and Allergies Home Medications ?Medication ?Instructions ?Recorded ?Confirmed ?Type pravastatin 20 mg tablet 20 mg PO DAILY 06/16/24 07/28/24 History lisinopril 20 mg tablet 20 mg PO DAILY #90 tabs 07/20/24 07/28/24 Rx multivitamin 1 tab PO DAILY 07/20/24 07/28/24 History New Prescriptions to Start Prescriptions: Allergies Allergy/AdvReac Type Severity Reaction Status Date / Time No Known Allergies Allergy Verified 07/28/24 09:29 Discharge Plan Disposition Patient Disposition: Home, Self-Care Follow up Plan Follow up with: Niharika Whittington APRN [Primary Care Provider] - 07/28/24 9:30 am Ac Gu MD [Staff Physician] - Enter time for follow up (please call for follow up appointment) Prescriptions/Medication Reconciliation: Continued pravastatin 20 mg tablet 20 mg PO DAILY lisinopril 20 mg tablet 20 mg PO DAILY Qty: 90 3RF multivitamin Tablet 1 tab PO DAILY Problem Reconciliation Problems Reviewed?: Yes Patient Discharge Instructions Patient Instructions: DI for Syncope in Adults (Fainting), DI for Chest Pain Print Language: Syrian Providers Primary Care Provider: Niharika Whittington Admit Provider: Ricky Conklin Attending Provider: Ricky Conklin
--- NOTE | 2024-07-22 14:59 | CARE MANAGER ---
Called and spoke with patient regarding recent discharge. Patient stated that she is doing very well, has scheduled needed f/u appt and voiced no concerns at time of call.
== END 2024-07-21 16:55 | disposition home or self-care (01) ==
LOC: ER 19:21 → 2ND 20:06
PROVIDERS: Internal Medicine Adolescent Medicine; Physician Assistant; Admitting Provider Student in an Organized Health Care Education/Training Program; Emergency Provider Emergency Medicine; PCP Nurse Practitioner Family; Visit Provider Student in an Organized Health Care Education/Training Program
DX: R55 Syncope and collapse (principal); R79.89 Other specified abnormal findings of blood chemistry; I10 Essential (primary) hypertension; Z79.899 Other long term (current) drug therapy; E78.2 Mixed hyperlipidemia; R94.39 Abnormal result of other cardiovascular function study
CPT/HCPCS: 36415; 70450; 70496; 70498; 71275; 75574; 80053; 80061; 80307; 81001; 83735; 83880; 84436; 84443; 84479; 84484; 85025; 85610; 86140; 87636; 93005; 93225; 93227; 93306; 97163; 97165; 99285; G0378; J1650; Q9967

== ENCOUNTER 2024-07-23 16:11 | Outpatient (CLI) | payer MEDICARE, SELFPAY | END 2024-07-23 23:59 | disposition home or self-care (01) | LOC: RT 16:13 | PROVIDERS: PCP Nurse Practitioner Family; Visit Provider Internal Medicine | DX: R55 Syncope and collapse (principal) | CPT/HCPCS: 93270; 93272 ==

== ENCOUNTER 2024-09-29 14:29 | Inpatient (IN) | payer MEDICARE, SELFPAY ==
[2024-09-29] VITALS (17 sets, daily range): BP systolic 126–176; BP diastolic 68–103; PULSE 92–125; RESP 14–18; TEMP 36.5–36.7; O2SAT 93–100; BMI 19.3
--- NOTE | 2024-09-29 14:31 | HMH.EDGENADL ---
Discharge Plan Disposition Patient Disposition: Admitted Condition: Critical Clinical Impressions Clinical Impression: Gastric perforation Discharge ED Provider: Abad Herr General Adult HPI <THERESA Porter - Last Filed: 09/29/24 16:47> General Chief complaint: Abdominal Pain Stated complaint: abd pain, poss dehydration Time Seen by Provider: 09/29/24 14:31 History of Present Illness HPI narrative: Patient presents for evaluation of nausea vomiting diarrhea and abdominal pain. Patient gives a week history of nausea vomiting diarrhea and abdominal pain. Patient reports that she is occasionally able to keep down water but today the pain is increased and she has been unable to keep anything down. She denies any fever chills hemoptysis hematochezia melena hematemesis hematuria. Related Data Home Medications ?Medication ?Instructions ?Recorded ?Confirmed multivitamin 1 tab PO DAILY 07/20/24 07/28/24 Previous Rx's ?Medication ?Instructions ?Recorded lisinopril 20 mg tablet 20 mg PO DAILY #90 tabs 07/20/24 pravastatin 20 mg tablet See Rx Instructions .Route 08/02/24 .COMPLEX #90 tabs Allergies Allergy/AdvReac Type Severity Reaction Status Date / Time No Known Allergies Allergy Verified 07/28/24 09:29 PFS <THERESA Porter - Last Filed: 09/29/24 16:47> [facility] Disclaimer: The information contained in this section may have been updated after the patient was seen, as this information can be updated by other users. Medical History Hyperlipidemia Hypertension Surgical History Hx of colonoscopy 12/2021 normal Family History Father Cancer lung Mother Cancer lung Social History Smoking Status: Never smoker alcohol intake: never substance use type: denies use current occupational status: retired Travel in the last 8 weeks: None Have you lived/traveled outside [place] in past 30 days?: No Contact w/someone who lives/traveled outside US past 30 days?: No Exposure to someone with infectious disease in past 14 days?: No Do you have a fever (greater than 100.4 F or 38 C)?: No Have you tested positive for COVID-19: No Exposed to someone with COVID-19 in past 14 days?: No Do you have a sore throat?: No Do you have a cough?: No Do you have any weakness?: No Do you have any diarrhea?: No Are you experiencing any unusual bleeding?: No Do you have any muscle aches/pain?: No Do you have any abdominal pain?: Yes Are you experiencing loss of taste or smell?: No Other Medical History Have you received the Flu Vaccine for this season: No Have you received the Pneumonia Vaccine: No <THERESA Porter - Last Filed: 09/29/24 16:47> ROS Obtained: Yes Systems reviewed as appropriate & no additional complaints except as documented Physical Exam <THERESA Porter - Last Filed: 09/29/24 16:47> General General appearance: alert and in no apparent distress Respiratory Respiratory exam: Present normal lung sounds bilaterally Cardiovascular Cardiovascular exam: Present regular rate Neurological Exam Neurological exam: Present alert and oriented X3 Medical Decision Making <THERESA Porter - Last Filed: 09/29/24 16:47> Medical Records Medical records reviewed: Yes I reviewed the patient's medical records. Screening: Per USPSTF and CDC recommendations, given the prevalence of disease in our region, it is our hospital?s policy to screen for HIV and viral Hepatitis for all patients aged 18 and over and those with ongoing risk factors. Ronny Inquiry Pt receiving controlled substance: No Vital Signs: 09/29/24 14:30 09/29/24 15:28 09/29/24 16:45 Temperature 97.9 F 97.9 F Temperature Source Oral Oral Pulse Rate 111 H Pulse Rate [Radial] 125 H 111 H Respiratory Rate 18 16 16 Blood Pressure 126/68 Blood Pressure [Right Arm] 151/94 H 126/68 Blood Pressure Mean [Right Arm] 113 87 Blood Pressure Source Automatic Cuff Blood Pressure Source [Right Arm] Automatic Cuff Automatic Cuff Blood Pressure Position Sitting Blood Pressure Position [Right Arm] Sitting Sitting 02 Sat by Pulse Oximetry 98 100 100 Oxygen Delivery Method Room Air Room Air Room Air 09/29/24 17:45 Temperature 98.0 F Temperature Source Oral Pulse Rate 111 H Pulse Rate [Radial] Respiratory Rate 16 Blood Pressure 126/68 Blood Pressure [Right Arm] Blood Pressure Mean [Right Arm] Blood Pressure Source Automatic Cuff Blood Pressure Source [Right Arm] Blood Pressure Position Sitting Blood Pressure Position [Right Arm] 02 Sat by Pulse Oximetry Oxygen Delivery Method Room Air Lab Data Lab results reviewed: Yes I reviewed the patient's lab results. Lab Results 09/29/24 14:51: WBC 16.2 H, RBC 4.34, Hgb 13.2, Hct 38.1, MCV 87.8, MCH 30.4, MCHC 34.6, RDW 12.3, Plt Count 240, MPV 11.6 H, Neut % (Auto) 90.5 H, Lymph % (Auto) 2.6 L, Butler % (Auto) 6.0, Eos % (Auto) 0.1, Baso % (Auto) 0.3, Neut # (Auto) 14.7 H, Lymph # (Auto) 0.4 L, Butler # (Auto) 1.0, Eos # (Auto) 0.0, Baso # (Auto) 0.1, Total Counted 100, Neutrophils % (Manual) 86 H, Band Neutrophils % 1.0, Lymphocytes % (Manual) 3 L, Monocytes % (Manual) 10 H, Platelet Estimate Normal, RBC Morphology Normal, Sodium 136, Potassium 3.2 L, Chloride 100, Carbon Dioxide 26, Anion Gap 13.2, BUN 27 H, Creatinine 0.60, Estimated Creat Clear 42, Estimated GFR 98, Est GFR ( Amer) 118, Glucose 112 H, Calcium 8.6, Magnesium 1.4 L, Total Bilirubin 1.1, AST 26, ALT 21, Alkaline Phosphatase 112, Total Protein 6.5, Albumin 3.4 L, Globulin 3.1, Albumin/Globulin Ratio 1.1, Procalcitonin 3.83 H, HCV Ab GERA w/Rflx PCR Qn Negative, HIV Ag/Ab Combo Qual Negative 09/29/24 16:42: Urine Color Yellow, Urine Appearance Clear, Urine pH 6.0, Ur Specific [place] 1.010, Urine Protein 1+ A, Urine Glucose (UA) Negative, Urine Ketones 2+, Urine Blood Trace-i, Urine Nitrate Negative, Urine Bilirubin 1+ A, Urine Urobilinogen 0.2, Ur Leukocyte Esterase Negative, Urine RBC Occasional, Urine WBC 3-5, Ur Squamous Epith Cells 3-5, Urine Bacteria 1+, Urine Mucus 3+ 09/29/24 14:51 09/29/24 14:51 Orders (Tests/Meds): ED MEDICATIONS Generic Name Dose Route Start Last Admin Trade Name Matt PRN Reason Stop Dose Admin Piperacillin Sod/Tazobactam 50 mls @ 100 mls/hr 09/29/24 17:29 09/29/24 17:47 Sod 3.375 gm/ Sodium Chloride IV 09/29/24 17:58 100 mls/hr ONCE ONE Administration Discontinued Medications Generic Name Dose Route Start Last Admin Trade Name Matt PRN Reason Stop Dose Admin Lactated Ringer's 1,000 mls @ 999 mls/hr 09/29/24 14:37 09/29/24 14:54 Lactated Ringer's 1000 Ml Bag IV 09/29/24 15:37 999 mls/hr .Q1H1M ONE Administration Lactated Ringer's 1,780 mls @ 890 mls/hr 09/29/24 15:40 09/29/24 16:51 Lactated Ringer's 1000 Ml Bag 30 ml/kg infuse over 2 hr (1780 ml) 09/29/24 17:39 890 mls/hr IV Administration .Q2H ONE Magnesium Sulfate 2 gm in 50 mls @ 50 mls/hr 09/29/24 16:17 09/29/24 16:51 Magnesium Sulfate 2gm/50ml Premix IV 09/29/24 17:16 50 mls/hr ONCE ONE Administration Ampicillin Sodium/Sulbactam 100 mls @ 200 mls/hr 09/29/24 16:34 Sodium 3 gm/ Sodium Chloride IV 09/29/24 16:35 ONCE ONE Iopamidol 75 ml 09/29/24 15:57 09/29/24 15:59 Iopamidol-370 (76%);100ml Bottle IV 09/29/24 15:58 75 ml ONCE ONE Administration Ondansetron HCl 4 mg 09/29/24 14:37 09/29/24 14:54 Ondansetron 4mg/2ml Vial IV 09/29/24 14:38 4 mg ONCE ONE Administration Sodium Chloride 10 ml 09/29/24 15:57 09/29/24 15:59 Sodium Chloride 0.9% 10ml Syr (Rad Only) IV 09/29/24 15:58 10 ml ONCE ONE Administration ORDERS Category Date Time Status CT abdomen pelvis w con Stat Cat Scan 09/29/24 14:37 Completed CBC w/Auto Diff [Complete Blood Count Auto Diff] Stat Lab 09/29/24 14:51 Completed CMP [Comprehensive Metabolic Panel] Stat Lab 09/29/24 14:51 Completed Diarrhea 23 Panel, PCR Stat Lab 09/29/24 14:38 Ordered HIV Combo Stat Lab 09/29/24 14:51 Completed Hepatitis C Ab Qual. W/ RFX Stat Lab 09/29/24 14:51 Completed Magnesium Stat Lab 09/29/24 14:51 Completed Procalcitonin Stat Lab 09/29/24 14:51 Completed UA [Urinalysis and Microscopic] Stat Lab 09/29/24 16:42 Completed Urinalysis (cathed specimen) Routine Lab 09/29/24 18:21 Ordered Tissue Perfus/Sepsis Re-Eval Sepsis Re-Evaluation Performed: Yes Date Performed: 09/29/24 Time Performed: 16:40 Medical Decision Narrative: In summary patient is a 74-year-old female who presents to the emergency department for evaluation of nausea vomiting diarrhea and abdominal pain. Patient is initially normotensive at 151/94 however tachycardic at 125 that shows sinus tachycardia on the bedside monitor satting at 98% on room air breathing 18 times a minute upon arrival, with a temperature of 97.9. Physical exam is remarkable for clear breath sounds with no adventitious sounds, diffuse abdominal tenderness and there is no rebound or guarding no rigidity noted. Bowel sounds are hypoactive.. Differential diagnosis includes infectious gastroenteritis versus constipation versus diverticulitis versus bowel obstruction etc. Initial workup will be conducted with hematologic labs urinalysis CT scan abdomen pelvis. Initial interventions include sepsis bolus due to the tachycardia Tylenol and Zofran. Initial workup reviewed by me shows a white count of 16.2 normal H&H and absolute neutrophil count of 14.7, CMP significant for potassium of 3.2 a BUN of 27 glucose 112 mag of 1.4, procalcitonin is 3.83 and my informal interpretation of her CT scan abdomen pelvis shows free air although I am unable to identify the actual potential source that could be in the upper gastrointestinal tract prior to radiology read. Radiology confirmed that patient likely has gastric perforation.. Upon repeat evaluation patient remains normotensive still tachycardic but better at 111 but breathing 16 times a minute still afebrile satting at 100% room air. Given this I had interactive discussion with general surgery regarding patient KHAN findings and patient management. They will be taking her in to the operating room for exploratory surgery. <Abad Herr MD - Last Filed: 09/29/24 18:55> Vital Signs: 09/29/24 14:30 09/29/24 15:28 09/29/24 16:45 Temperature 97.9 F 97.9 F Temperature Source Oral Oral Pulse Rate 111 H Pulse Rate [Radial] 125 H 111 H Respiratory Rate 18 16 16 Blood Pressure 126/68 Blood Pressure [Right Arm] 151/94 H 126/68 Blood Pressure Mean [Right Arm] 113 87 Blood Pressure Source Automatic Cuff Blood Pressure Source [Right Arm] Automatic Cuff Automatic Cuff Blood Pressure Position Sitting Blood Pressure Position [Right Arm] Sitting Sitting 02 Sat by Pulse Oximetry 98 100 100 Oxygen Delivery Method Room Air Room Air Room Air 09/29/24 17:45 Temperature 98.0 F Temperature Source Oral Pulse Rate 111 H Pulse Rate [Radial] Respiratory Rate 16 Blood Pressure 126/68 Blood Pressure [Right Arm] Blood Pressure Mean [Right Arm] Blood Pressure Source Automatic Cuff Blood Pressure Source [Right Arm] Blood Pressure Position Sitting Blood Pressure Position [Right Arm] 02 Sat by Pulse Oximetry Oxygen Delivery Method Room Air Lab Data Lab Results 09/29/24 14:51: WBC 16.2 H, RBC 4.34, Hgb 13.2, Hct 38.1, MCV 87.8, MCH 30.4, MCHC 34.6, RDW 12.3, Plt Count 240, MPV 11.6 H, Neut % (Auto) 90.5 H, Lymph % (Auto) 2.6 L, Butler % (Auto) 6.0, Eos % (Auto) 0.1, Baso % (Auto) 0.3, Neut # (Auto) 14.7 H, Lymph # (Auto) 0.4 L, [place] # (Auto) 1.0, Eos # (Auto) 0.0, Baso # (Auto) 0.1, Total Counted 100, Neutrophils % (Manual) 86 H, Band Neutrophils % 1.0, Lymphocytes % (Manual) 3 L, Monocytes % (Manual) 10 H, Platelet Estimate Normal, RBC Morphology Normal, Sodium 136, Potassium 3.2 L, Chloride 100, Carbon Dioxide 26, Anion Gap 13.2, BUN 27 H, Creatinine 0.60, Estimated Creat Clear 42, Estimated GFR 98, Est GFR ( Amer) 118, Glucose 112 H, Calcium 8.6, Magnesium 1.4 L, Total Bilirubin 1.1, AST 26, ALT 21, Alkaline Phosphatase 112, Total Protein 6.5, Albumin 3.4 L, Globulin 3.1, Albumin/Globulin Ratio 1.1, Procalcitonin 3.83 H, HCV Ab GERA w/Rflx PCR Qn Negative, HIV Ag/Ab Combo Qual Negative 09/29/24 16:42: Urine Color Yellow, Urine Appearance Clear, Urine pH 6.0, Ur Specific [place] 1.010, Urine Protein 1+ A, Urine Glucose (UA) Negative, Urine Ketones 2+, Urine Blood Trace-i, Urine Nitrate Negative, Urine Bilirubin 1+ A, Urine Urobilinogen 0.2, Ur Leukocyte Esterase Negative, Urine RBC Occasional, Urine WBC 3-5, Ur Squamous Epith Cells 3-5, Urine Bacteria 1+, Urine Mucus 3+ Orders (Tests/Meds): ED MEDICATIONS Generic Name Dose Route Start Last Admin Trade Name Freq PRN Reason Stop Dose Admin Piperacillin Sod/Tazobactam 50 mls @ 100 mls/hr 09/29/24 17:29 09/29/24 17:47 Sod 3.375 gm/ Sodium Chloride IV 09/29/24 17:58 100 mls/hr ONCE ONE Administration Discontinued Medications Generic Name Dose Route Start Last Admin Trade Name Freq PRN Reason Stop Dose Admin Lactated Ringer's 1,000 mls @ 999 mls/hr 09/29/24 14:37 09/29/24 14:54 Lactated Ringer's 1000 Ml Bag IV 09/29/24 15:37 999 mls/hr .Q1H1M ONE Administration Lactated Ringer's 1,780 mls @ 890 mls/hr 09/29/24 15:40 09/29/24 16:51 Lactated Ringer's 1000 Ml Bag 30 ml/kg infuse over 2 hr (1780 ml) 09/29/24 17:39 890 mls/hr IV Administration .Q2H ONE Magnesium Sulfate 2 gm in 50 mls @ 50 mls/hr 09/29/24 16:17 09/29/24 16:51 Magnesium Sulfate 2gm/50ml Premix IV 09/29/24 17:16 50 mls/hr ONCE ONE Administration Ampicillin Sodium/Sulbactam 100 mls @ 200 mls/hr 09/29/24 16:34 Sodium 3 gm/ Sodium Chloride IV 09/29/24 16:35 ONCE ONE Iopamidol 75 ml 09/29/24 15:57 09/29/24 15:59 Iopamidol-370 (76%);100ml Bottle IV 09/29/24 15:58 75 ml ONCE ONE Administration Ondansetron HCl 4 mg 09/29/24 14:37 09/29/24 14:54 Ondansetron 4mg/2ml Vial IV 09/29/24 14:38 4 mg ONCE ONE Administration Sodium Chloride 10 ml 09/29/24 15:57 09/29/24 15:59 Sodium Chloride 0.9% 10ml Syr (Rad Only) IV 09/29/24 15:58 10 ml ONCE ONE Administration ORDERS Category Date Time Status CT abdomen pelvis w con Stat Cat Scan 09/29/24 14:37 Completed CBC w/Auto Diff [Complete Blood Count Auto Diff] Stat Lab 09/29/24 14:51 Completed CMP [Comprehensive Metabolic Panel] Stat Lab 09/29/24 14:51 Completed Diarrhea 23 Panel, PCR Stat Lab 09/29/24 14:38 Ordered HIV Combo Stat Lab 09/29/24 14:51 Completed Hepatitis C Ab Qual. W/ RFX Stat Lab 09/29/24 14:51 Completed Magnesium Stat Lab 09/29/24 14:51 Completed Procalcitonin Stat Lab 09/29/24 14:51 Completed UA [Urinalysis and Microscopic] Stat Lab 09/29/24 16:42 Completed Urinalysis (cathed specimen) Routine Lab 09/29/24 18:21 Ordered Medical Decision Narrative: In summary patient is a 74-year-old female who presents to the emergency department for evaluation of nausea vomiting diarrhea and abdominal pain. Patient is initially normotensive at 151/94 however tachycardic at 125 that shows sinus tachycardia on the bedside monitor satting at 98% on room air breathing 18 times a minute upon arrival, with a temperature of 97.9. Physical exam is remarkable for clear breath sounds with no adventitious sounds, diffuse abdominal tenderness and there is no rebound or guarding no rigidity noted. Bowel sounds are hypoactive.. Differential diagnosis includes infectious gastroenteritis versus constipation versus diverticulitis versus bowel obstruction etc. Initial workup will be conducted with hematologic labs urinalysis CT scan abdomen pelvis. Initial interventions include sepsis bolus due to the tachycardia Tylenol and Zofran. Initial workup reviewed by me shows a white count of 16.2 normal H&H and absolute neutrophil count of 14.7, CMP significant for potassium of 3.2 a BUN of 27 glucose 112 mag of 1.4, procalcitonin is 3.83 and my informal interpretation of her CT scan abdomen pelvis shows free air although I am unable to identify the actual potential source that could be in the upper gastrointestinal tract prior to radiology read. Radiology confirmed that patient likely has gastric perforation.. Upon repeat evaluation patient remains normotensive still tachycardic but better at 111 but breathing 16 times a minute still afebrile satting at 100% room air. Given this I had interactive discussion with general surgery regarding patient KHAN findings and patient management. They will be taking her in to the operating room for exploratory surgery. I independently examined patient. Diffusely tender, but no rebound, rigidity or guarding. I was consulted by the TAO, and we discussed the complexity of the problems being addressed. I approved the treatment and management plan for this patient's care in the Emergency Department, thus performing a substantive portion of the medical decision making. Workup independently interpreted and consistent with leukocytosis with neutrophilia. Moderate hypokalemia. Procalcitonin elevated at nearly 4.0. CT of the abdomen pelvis with pneumoperitoneum. Patient was given sepsis bolus and Unasyn. Disposition per Rose and general surgery to be taken to the OR for ex lap. Abad Herr MD Critical Care <THERESA Porter - Last Filed: 09/29/24 16:47> Critical Care Time Critical Care Time: Yes Attestation: On 09/29/24, the high probability of a clinically significant, sudden or life threatening deterioration of the following systems: Cardiovascular, gastrointestinal; required my full and direct attention, intervention and personal management. The time I documented below is in addition to time spent performing reported procedures but includes the following listed in this critical care notation. Total Time Total Critical Care Time: 35 <Abad Herr MD - Last Filed: 09/29/24 18:55> Total Time Total Critical Care Time: 60
--- NOTE | 2024-09-29 14:37 | CT_ITS ---
FINAL REPORT TECHNIQUE: After the administration of intravenous contrast, axial images were obtained through the abdomen and pelvis by computed tomography. The study was performed with techniques to keep radiation dose as low as reasonably achievable, (ALARA). Individual dose reduction techniques using automated exposure control or adjustment of mA and/or kV according to the patient's size were employed. CLINICAL HISTORY: Nausea vomiting diarrhea x 1 week COMPARISON: None FINDINGS: Abdomen: There are small bilateral pleural effusions. Bibasilar atelectasis is noted. There is a moderate amount of intraperitoneal free air. Multiple benign-appearing cysts are seen in the liver measuring up to 2.3 cm. The spleen, pancreas, adrenal glands, and kidneys are unremarkable. The gallbladder is present. There appears to be thickened pyloric channel and gastric antrum well seen on images 47-53 of series 3. Multiple fluid-filled loops of small bowel are mildly dilated measuring up to 2.5 cm. Pelvis: There is a moderate amount of free fluid in the pelvis. The uterus is anteverted. The appendix is unremarkable. IMPRESSION: Intraperitoneal free air with marked mucosal thickening in the region of the pyloric channel. Findings are highly concerning for perforated gastric ulcer. Perforation site appears evident on images 53 and 54 of series 3. Reviewed, Interpreted and Dictated by Hnay Villa MD Transcribed by Shae Pearce Authenticated and [facility]
[2024-09-29] MEDS: ONDANSETRON 4MG/2ML VIAL 4 MG IV ×2 (14:54→20:50)
[2024-09-29] MEDS: LACTATED RINGERS 1000ML 1,000 ML 999 ML IV (14:54)
[2024-09-29 15:00] LABS: Basophils # 0.1 K/mm3 (0-0.2); Basophils % 0.3 % (0.1-2.0); Eosinophils % 0.1 % (0.1-12.0); Hematocrit 38.1 % (37.0-47.0); Hemoglobin 13.2 g/dL (12.2-16.2); Lymphocytes # 0.4 K/mm3 (0.7-4.5); Lymphocytes % 2.6 % (10-50); Mean Corpuscular HGB Conc 34.6 g/dL (31.8-35.4); Mean Corpuscular Hemoglobin 30.4 pg (27.0-31.2); Mean Corpuscular Volume 87.8 fl (81-99); Mean Platelet Volume 11.6 fl (7.4-10.4); Neutrophils # 14.7 K/mm3 (1.8-7.8); Neutrophils % 90.5 % (37.0-80.0); Platelet Count 240 K/mm3 (142-424); Red Blood Count 4.34 M/mm3 (4.20-5.40); Red Cell Distribution Width 12.3 % (11.5-17.5); White Blood Count 16.2 K/mm3 (4.8-10.8)
[2024-09-29 15:17] LABS: MANUAL DIFFERENTIAL MANUAL DIFFERENTIAL (MANUAL DIFF)
[2024-09-29 15:20] LABS: Albumin Level 3.4 g/dl (3.5-5.0); Chloride 100 mmol/L (98-107); Sodium 136 mmol/L (136-145)
[2024-09-29 15:21] LABS: Potassium 3.2 mmoL/L (3.5-5.1)
[2024-09-29 15:23] LABS: Alanine Aminotransferase 21 U/L (12-78); Albumin/Globulin Ratio 1.1 (1.1-1.8); Alkaline Phosphatase 112 U/L (38-126); Anion Gap 13.2 mEq/L (5-15); Aspartate Amino Transferase 26 U/L (14-36); Bilirubin,Total 1.1 mg/dl (0.2-1.3); Blood Urea Nitrogen 27 mg/dl (7-17); Carbon Dioxide 26 mmol/L (22.0-30.0); Creatinine Clearance Estimated 42 mL/min (50-200); Estimated Glomerular Filt Rate 98 ml/min (>60); GFR (African American) 118 ML/MIN (>60); Globulin 3.1 g/dL (1.3-3.2); Total Protein,Serum 6.5 g/dl (6.3-8.2)
[2024-09-29 15:24] LABS: Calcium 8.6 mg/dl (8.4-10.2); Glucose 112 mg/dl (74-100); Magnesium 1.4 mg/dl (1.6-2.3)
[2024-09-29] MEDS: IOPAMIDOL-370 (76%);100ML BOTTLE 75 ML IV (15:59)
[2024-09-29] MEDS: SODIUM CHLORIDE 0.9% 10ML SYR (RAD ONLY) 10 ML IV (15:59)
[2024-09-29 16:05] LABS: HIV Combo NEGATIVE (Negative)
[2024-09-29 16:07] LABS: Procalcitonin 3.83 ng/mL (0.0-2.0)
[2024-09-29 16:10] LABS: Lymphocytes % 3 % (10-50); Monocytes % 10 % (2-9); Neutrophils % 86 % (42-76); Platelet Estimate Normal; RBC Morphology Normal; Total Cells Counted 100
[2024-09-29 16:13] LABS: Hepatitis C Ab Qual. W/ RFX NEGATIVE (Negative)
[2024-09-29 16:45] LABS: Microscopic, Urine URINE MICROSCOPIC (MICROSCOPIC)
[2024-09-29] MEDS: LACTATED RINGERS 1000ML 1,780 ML 890 ML IV (16:51)
[2024-09-29] MEDS: MAGNESIUM SULFATE IN WATER 2 GM/50 ML PIGGYBACK IV (16:51)
--- NOTE | 2024-09-29 17:07 | PC.NURSE ---
[id number]-Surgery team notified that Dr Abbott is taking patient to OR for laporotomy. Callbacks: Josh- [phone] Magalys- [phone] Millicent- [phone]
[2024-09-29 17:09] LABS: Appearance,Urine CLEAR (Clear); Blood, Urine TRACE-I (Negative); Color,Urine YELLOW (Yellow); Glucose,Urine (UA) Negative (Negative); Ketones,Urine 2+ (Negative); Leukocyte Esterase,Urine Negative (Negative); Nitrate,Urine Negative (Negative); Protein,Urine 1+ (Negative); Urobilinogen,Urine 0.2 EU/dl (0.2)
[2024-09-29 17:18] LABS: Bilirubin,Urine 1+ (Negative)
--- NOTE | 2024-09-29 17:22 | EXP.SURG.CON ---
History of Present Illness *Admission Date: 09/29/24 *Reason for visit:: Gastric perforation *History of present illness: Patient is a 74-year-old female. She states that on 09/25/2024 she had developed some GI issues mainly with nausea and some vomiting. She is also had some loose stools. Today she has been unable to tolerate oral intake. This afternoon she had a acute exacerbation of pain which was quite severe which prompted her to come to the emergency department. She did have findings consistent with possible sepsis characterized by tachycardia and leukocytosis. Procalcitonin 3.83. CT scan performed revealed intraperitoneal free air with mucosal thickening in the region of the pyloric channel concerning for perforated gastric ulcer . Surgical consultation was obtained. [facility] Disclaimer: The information contained in this section may have been updated after the patient was seen, as this information can be updated by other users. Medical History Hyperlipidemia Hypertension Surgical History Hx of colonoscopy 12/2021 normal Family History Father Cancer lung Mother Cancer lung Social History Smoking Status: Never smoker alcohol intake: never substance use type: denies use current occupational status: retired Travel in the last 8 weeks: None Have you lived/traveled outside US in past 30 days?: No Contact w/someone who lives/traveled outside US past 30 days?: No Exposure to someone with infectious disease in past 14 days?: No Do you have a fever (greater than 100.4 F or 38 C)?: No Have you tested positive for COVID-19: No Exposed to someone with COVID-19 in past 14 days?: No Do you have a sore throat?: No Do you have a cough?: No Do you have any weakness?: No Do you have any diarrhea?: No Are you experiencing any unusual bleeding?: No Do you have any muscle aches/pain?: No Do you have any abdominal pain?: Yes Are you experiencing loss of taste or smell?: No Meds Home Medications and Allergies Home Medications ?Medication ?Instructions ?Recorded ?Confirmed ?Type lisinopril 20 mg tablet 20 mg PO DAILY #90 tabs 07/20/24 07/28/24 Rx multivitamin 1 tab PO DAILY 07/20/24 07/28/24 History pravastatin 20 mg tablet See Rx Instructions .Route 08/02/24 Rx .COMPLEX #90 tabs New Prescriptions to Start Prescriptions: Allergies Allergy/AdvReac Type Severity Reaction Status Date / Time No Known Allergies Allergy Verified 07/28/24 09:29 Exam (Inpt) Vital signs and Labs for Last 24 Hours: Temp Pulse Resp BP Pulse Ox O2 Del Method 97.9 F 111 H 16 126/68 100 Room Air 09/29/24 16:45 09/29/24 16:45 09/29/24 16:45 09/29/24 16:45 09/29/24 16:45 09/29/24 16:45 Laboratory Results - last 24 hr 09/29/24 14:51: WBC 16.2 H, RBC 4.34, Hgb 13.2, Hct 38.1, MCV 87.8, MCH 30.4, MCHC 34.6, RDW 12.3, Plt Count 240, MPV 11.6 H, Neut % (Auto) 90.5 H, Lymph % (Auto) 2.6 L, [place] % (Auto) 6.0, Eos % (Auto) 0.1, Baso % (Auto) 0.3, Neut # (Auto) 14.7 H, Lymph # (Auto) 0.4 L, [place] # (Auto) 1.0, Eos # (Auto) 0.0, Baso # (Auto) 0.1, Total Counted 100, Neutrophils % (Manual) 86 H, Band Neutrophils % 1.0, Lymphocytes % (Manual) 3 L, Monocytes % (Manual) 10 H, Platelet Estimate Normal, RBC Morphology Normal, Sodium 136, Potassium 3.2 L, Chloride 100, Carbon Dioxide 26, Anion Gap 13.2, BUN 27 H, Creatinine 0.60, Estimated Creat Clear 42, Estimated GFR 98, Est GFR ( Amer) 118, Glucose 112 H, Calcium 8.6, Magnesium 1.4 L, Total Bilirubin 1.1, AST 26, ALT 21, Alkaline Phosphatase 112, Total Protein 6.5, Albumin 3.4 L, Globulin 3.1, Albumin/Globulin Ratio 1.1, Procalcitonin 3.83 H, HCV Ab GERA w/Rflx PCR Qn Negative, HIV Ag/Ab Combo Qual Negative 09/29/24 16:42: Urine Color Yellow, Urine Appearance Clear, Urine pH 6.0, Ur Specific [place] 1.010, Urine Protein 1+ A, Urine Glucose (UA) Negative, Urine Ketones 2+, Urine Blood Trace-i, Urine Nitrate Negative, Urine Bilirubin 1+ A, Urine Urobilinogen 0.2, Ur Leukocyte Esterase Negative I & O for Labs for Last 24 Hours: Intake & Output 09/27/24 09/28/24 09/29/24 09/30/24 11:59 11:59 11:59 11:59 Weight 120 lb Constitutional: no acute distress Head: Present normocephalic Neck: Present normal inspection Respiratory: Present CTA bilaterally Cardiac: Present Reg Rate and Rhythm GI: Present distention and tenderness Comments:: Abdomen slightly distended. She does not have diffuse peritonitis but does have tenderness with guarding and rebound in the right upper quadrant. Rectal (female): Present deferred (female): Present deferred Results Labs 09/29/24 14:51 09/29/24 14:51 Labs: Laboratory Results - last 24 hr 09/29/24 14:51: WBC 16.2 H, RBC 4.34, Hgb 13.2, Hct 38.1, MCV 87.8, MCH 30.4, MCHC 34.6, RDW 12.3, Plt Count 240, MPV 11.6 H, Neut % (Auto) 90.5 H, Lymph % (Auto) 2.6 L, [place] % (Auto) 6.0, Eos % (Auto) 0.1, Baso % (Auto) 0.3, Neut # (Auto) 14.7 H, Lymph # (Auto) 0.4 L, [place] # (Auto) 1.0, Eos # (Auto) 0.0, Baso # (Auto) 0.1, Total Counted 100, Neutrophils % (Manual) 86 H, Band Neutrophils % 1.0, Lymphocytes % (Manual) 3 L, Monocytes % (Manual) 10 H, Platelet Estimate Normal, RBC Morphology Normal, Sodium 136, Potassium 3.2 L, Chloride 100, Carbon Dioxide 26, Anion Gap 13.2, BUN 27 H, Creatinine 0.60, Estimated Creat Clear 42, Estimated GFR 98, Est GFR ( Amer) 118, Glucose 112 H, Calcium 8.6, Magnesium 1.4 L, Total Bilirubin 1.1, AST 26, ALT 21, Alkaline Phosphatase 112, Total Protein 6.5, Albumin 3.4 L, Globulin 3.1, Albumin/Globulin Ratio 1.1, Procalcitonin 3.83 H, HCV Ab GERA w/Rflx PCR Qn Negative, HIV Ag/Ab Combo Qual Negative 09/29/24 16:42: Urine Color Yellow, Urine Appearance Clear, Urine pH 6.0, Ur Specific [place] 1.010, Urine Protein 1+ A, Urine Glucose (UA) Negative, Urine Ketones 2+, Urine Blood Trace-i, Urine Nitrate Negative, Urine Bilirubin 1+ A, Urine Urobilinogen 0.2, Ur Leukocyte Esterase Negative Assessment and Plan *Assessment and plan (1) Gastric perforation: Status: Acute Category: Medical Code(s): K25.5 - Chronic or unspecified gastric ulcer with perforation Plan Plan is to proceed with immediate exploratory laparotomy for presumed perforated pyloric channel ulcer. I explained the nature and details of the proposed procedure along with associated risks and expected outcomes with the patient. She understands agrees to proceed
[2024-09-29] MEDS: PIPERCILLIN/TAZO 3.375 GM in 0.9 % SODIUM CHLORIDE 50 ML IV ×2 (17:47→21:51)
[2024-09-29 18:08] LABS: RBC,Urine Occasional #/hpf (0-3)
[2024-09-29 18:09] LABS: Bacteria,Urine 1+ /lpf; Mucus,Urine 3+ /lpf
--- NOTE | 2024-09-29 18:28 | EXP.ANES.CKL ---
[facility] Disclaimer: The information contained in this section may have been updated after the patient was seen, as this information can be updated by other users. Medical History Hyperlipidemia Hypertension Surgical History Hx of colonoscopy 12/2021 normal Family History Father Cancer lung Mother Cancer lung Social History Smoking Status: Never smoker alcohol intake: never substance use type: denies use current occupational status: retired Travel in the last 8 weeks: None Have you lived/traveled outside US in past 30 days?: No Contact w/someone who lives/traveled outside US past 30 days?: No Exposure to someone with infectious disease in past 14 days?: No Do you have a fever (greater than 100.4 F or 38 C)?: No Have you tested positive for COVID-19: No Exposed to someone with COVID-19 in past 14 days?: No Do you have a sore throat?: No Do you have a cough?: No Do you have any weakness?: No Do you have any diarrhea?: No Are you experiencing any unusual bleeding?: No Do you have any muscle aches/pain?: No Do you have any abdominal pain?: Yes Are you experiencing loss of taste or smell?: No [facility] Anesthesia Checklist Patient Identification Patient Identification: Arm Band Structural Data Admitted From: Emergency Dept Planned Operative Procedure/s: Exploratory Laparotomy Consent for Planned Operative Procedure(s) Verified: Yes Verified Documents: Surgical Consent and History and Physical NPO Status Verified Time NPO: 00:00 Additional verifications Anesthesia Reactions: No Airway Assessment Mallampati Score:: Class II C-Spine Mobility Assessed: Yes TMJ Mobility Assessed: Yes Dentition: Good Dentition Neurological Assessment Level of Consciousness: Awake, Alert and Appropriate Anesthesia Plan Anesthesia Risk discussed: Yes Anesthesia Plan: Verified ASA Class: II (E) Anesthesia Type: General
--- NOTE | 2024-09-29 19:24 | EXP.OP.NOTE ---
Date of procedure: 09/29/24 Pre-op Diagnosis:: Free air, peritonitis Post-op Diagnosis:: Same Procedure performed:: Exploratory laparotomy with repair of duodenal ulcer perforation using omental pedicle patch Surgeon:: Ridge Abbott MD [employer] OFFICER:: Sam Varghese Anesthesia: GETA Estimated blood loss (mL): 15 Clinical Note:: Patient is a 74-year-old female. She states that on 09/25/2024 she had developed some GI issues mainly with nausea and some vomiting. She is also had some loose stools. Today she has been unable to tolerate oral intake. This afternoon she had a acute exacerbation of pain which was quite severe which prompted her to come to the emergency department. She did have findings consistent with possible sepsis characterized by tachycardia and leukocytosis. Procalcitonin 3.83. CT scan performed revealed intraperitoneal free air with mucosal thickening in the region of the pyloric channel concerning for perforated gastric ulcer . Surgical consultation was obtained. Patient was seen and examined in the emergency department. Imaging was reviewed. She had findings of focal peritonitis in the right upper quadrant. Given her imaging and findings plan was made for laparotomy for presumed perforated ulcer. Operative findings:: She had an intense inflammatory response in the right upper quadrant with well-established peritonitis with inflammatory exudate. There was what appeared to relatively large anterior duodenal perforation near the pyloric channel. Operative note:: Consent was obtained and patient was taken emergently to the operating room. She was positioned in supine position. General anesthesia was induced via endotracheal tube. Suarez catheter was placed. Abdomen was prepped and draped in the standard surgical fashion. Upper midline laparotomy incision was made. Dissection was carried down through subcutaneous tissues. The fascia was incised. Peritoneum was elevated. It was bulging from intra-abdominal air. Peritoneum was incised. Exposure was achieved. There was some cloudy fluid and fibrinous purulent exudate in the right upper quadrant. Limited to careful blunt dissection was carried out as the omentum was adherent over the anterior duodenum and liver. She had an anterior perforated ulcer which was partially walled off with adherent omentum. Exposure was achieved. Fluid was suctioned free. Some limited blunt dissection was carried out adjacent to the duodenal perforation at the site of the acute inflammatory adhesions. Plan was made for Kj patch omental pedicle repair. Pedicle of omentum was mobilized using the Enseal device. This was essentially near the same side of omentum that she had partially walled the area off. Several full-thickness 3 oh Surgilon sutures were placed transversely at the site of the perforation. Omental pedicle was delivered through the sutures prior to tying and then they were tied down patching and closing the ulceration. Nasogastric tube was manipulated by anesthesia and confirmed in a good position in the antrum. Peritoneal cavity was then thoroughly irrigated with several liters of warm saline and aspirated until clear. A 7 mm RADHA drain was placed through a separate incision in the right lateral abdomen to overlie the site of perforated ulcer repair. It was secured to the skin with a 3-0 nylon suture. There was good hemostasis. Abdominal fascia was closed with a running #1 PDS x 2. Subcutaneous tissues were irrigated. Skin was closed with lul. Clean dry sterile dressing was applied. Condition: stable Disposition: PACU Complications:: None immediately apparent
--- NOTE | 2024-09-29 19:31 | P.PNANES_ITS ---
[facility] Anesthesia Record Part I Anesthesia Record I Intake, IV Amount: 1,900 Hydration: Adequate Estimated blood loss (mL): 20 Urine output (mL): 400 Blood Products used (#): none Blood Pressure: 161/89 SaO2: 95 Pulse Rate: 96 Airway Patency: Patent Respiratory Rate: 16 Temperature: 98 F Patient is:: Drowsy and Stable Stable to PACU at:: 19:25
[2024-09-29 20:14] LABS: Microscopic,Cath URINE MICROSCOPIC (MICROSCOPIC)
[2024-09-29 20:16] LABS: Appearance,Urine/Cath CLEAR (Clear); Bilirubin,Cath Negative (Negative); Blood, Urine/Cath 1+ (Negative); Color,Urine/Cath YELLOW (Yellow); Glucose,Urine/Cath (UA) Negative (Negative); Ketones,Urine/Cath 2+ (Negative); Leukocyte Esterase,Cath Negative (Negative); Nitrate,Cath Negative (Negative); PH,Urine/Cath 5.5 (5.0-8.5); Protein,Urine/Cath TRACE (Negative); Urobilinogen,Cath 0.2 EU/dl (0.2)
[2024-09-29 20:28] LABS: Bacteria,Urine/Cath TRACE /lpf; Squamous Epithelial Ur./Cath Occasional #/hpf (0-5)
--- NOTE | 2024-09-29 20:30 | PC.NURSE ---
Patient arrived to floor via stretcher from surgery at 20:01.
[2024-09-29] MEDS: MORPHINE 2MG/ML SYRINGE 2 MG IV (20:50)
[2024-09-29] MEDS: LACTATED RINGERS 1000ML 1,000 ML 100 ML IV (20:51)
[2024-09-29] MEDS: PANTOPRAZOLE 40MG VIAL 40 MG IV (21:50)
[2024-09-30] VITALS (9 sets, daily range): BP systolic 125–175; BP diastolic 71–96; PULSE 94–118; RESP 14–19; TEMP 36.4–36.8; O2SAT 94–98; BMI 19.1
[2024-09-30] MEDS: KCl 10mEq/100ml 100 ML 100 MEQ IV ×6 (00:24→11:59)
[2024-09-30] MEDS: MORPHINE 2MG/ML SYRINGE 2 MG IV ×4 (01:34→23:36)
--- NOTE | 2024-09-30 04:38 | P.HP_ITS ---
History of Present Illness *Admission Date: 09/29/24 *Reason for visit:: abdominal pain, nausea and vomiting *History of present illness: The patient is a 74-year-old female presenting with a one-week history of nausea, vomiting, diarrhea, and abdominal pain. She reports occasionally being able to keep down small amounts of water, but notes her pain has worsened today and she has been unable to tolerate any oral intake. She denies fever, chills, hemoptysis, hematochezia, melena, hematemesis, or hematuria. On arrival, her vital signs showed a blood pressure of 151/94 mmHg, heart rate of 125 bpm (sinus tachycardia on bedside monitor), respiratory rate of 18 breaths per minute, oxygen saturation of 98% on room air, and temperature of 97.9?F. Physical examination was notable for diffuse abdominal tenderness without rebound, guarding, or rigidity; bowel sounds were hypoactive. Her i nitial labs revealed an elevated white blood cell count of 16.2 K/?L and procalcitonin of 3.83 ng/mL, alongside hypokalemia (3.2 mEq/L) and hypomagnesemia (1.4 mg/dL). A CT scan of the abdomen and pelvis demonstrated evidence of free air, raising concern for a gastric or duodenal perforation; radiology confirmed likely gastric perforation. After initial management with IV fluids (for sepsis protocol), antiemetics, and analgesics, the patient remained normotensive but persistently tachycardic in the low 110s. General Surgery was consulted and took the patient for an exploratory procedure, where a large anterior duodenal perforation near the pyloric channel with peritonitis was identified and addressed. Post-operatively, she now reports moderate abdominal pain and mild nausea, both controlled with her current medication regimen. [facility] Disclaimer: The information contained in this section may have been updated after the patient was seen, as this information can be updated by other users. Medical History Hyperlipidemia Hypertension Surgical History Hx of colonoscopy Family History Father Cancer Mother Cancer Social History (Reviewed 09/30/24 @ 04:39 by MOOK Barnett Smoking Status: Never smoker alcohol intake: never substance use type: denies use current occupational status: retired Travel in the last 8 weeks: None household members: spouse housing: house lives independently: No marital status: Have you lived/traveled outside US in past 30 days?: No Contact w/someone who lives/traveled outside US past 30 days?: No Exposure to someone with infectious disease in past 14 days?: No Do you have a fever (greater than 100.4 F or 38 C)?: No Have you tested positive for COVID-19: No Exposed to someone with COVID-19 in past 14 days?: No Do you have a sore throat?: No Do you have a cough?: No Do you have any weakness?: No Do you have any diarrhea?: No Are you experiencing any unusual bleeding?: No Do you have any muscle aches/pain?: No Do you have any abdominal pain?: Yes Are you experiencing loss of taste or smell?: No Other Medical History Have you received the Flu Vaccine for this season: No Have you received the Pneumonia Vaccine: No Review of Systems Review of Systems Review of systems (narrative): 14 point review systems negative except as listed in HPI Meds Home Medications and Allergies Home Medications ?Medication ?Instructions ?Recorded ?Confirmed ?Type lisinopril 20 mg tablet 20 mg PO DAILY #90 tabs 07/20/24 09/29/24 Rx multivitamin 1 tab PO DAILY 07/20/24 09/29/24 History pravastatin 20 mg tablet 20 mg PO HS 09/30/24 09/30/24 History New Prescriptions to Start Prescriptions: Allergies Allergy/AdvReac Type Severity Reaction Status Date / Time No Known Allergies Allergy Verified 07/28/24 09:29 Exam Data for Last 24 hours Vital signs and Labs for Last 24 Hours: Temp Pulse Resp BP Pulse Ox O2 Del Method 98.2 F 95 H 18 137/71 95 Room Air 09/30/24 04:00 09/30/24 04:00 09/30/24 04:00 09/30/24 04:00 09/30/24 04:00 09/30/24 04:00 Laboratory Results - last 24 hr 09/29/24 14:51: WBC 16.2 H, RBC 4.34, Hgb 13.2, Hct 38.1, MCV 87.8, MCH 30.4, MCHC 34.6, RDW 12.3, Plt Count 240, MPV 11.6 H, Neut % (Auto) 90.5 H, Lymph % (Auto) 2.6 L, [place] % (Auto) 6.0, Eos % (Auto) 0.1, Baso % (Auto) 0.3, Neut # (Auto) 14.7 H, Lymph # (Auto) 0.4 L, [place] # (Auto) 1.0, Eos # (Auto) 0.0, Baso # (Auto) 0.1, Total Counted 100, Neutrophils % (Manual) 86 H, Band Neutrophils % 1.0, Lymphocytes % (Manual) 3 L, Monocytes % (Manual) 10 H, Platelet Estimate Normal, RBC Morphology Normal, Sodium 136, Potassium 3.2 L, Chloride 100, Carbon Dioxide 26, Anion Gap 13.2, BUN 27 H, Creatinine 0.60, Estimated Creat Clear 42, Estimated GFR 98, Est GFR ( Amer) 118, Glucose 112 H, Calcium 8.6, Magnesium 1.4 L, Total Bilirubin 1.1, AST 26, ALT 21, Alkaline Phosphatase 112, Total Protein 6.5, Albumin 3.4 L, Globulin 3.1, Albumin/Globulin Ratio 1.1, Procalcitonin 3.83 H, HCV Ab GERA w/Rflx PCR Qn Negative, HIV Ag/Ab Combo Qual Negative 09/29/24 16:42: Urine Color Yellow, Urine Appearance Clear, Urine pH 6.0, Ur Specific [place] 1.010, Urine Protein 1+ A, Urine Glucose (UA) Negative, Urine Ketones 2+, Urine Blood Trace-i, Urine Nitrate Negative, Urine Bilirubin 1+ A, Urine Urobilinogen 0.2, Ur Leukocyte Esterase Negative, Urine RBC Occasional, Urine WBC 3-5, Ur Squamous Epith Cells 3-5, Urine Bacteria 1+, Urine Mucus 3+ 09/29/24 18:24: Urine Color Yellow, Urine Appearance Clear, Urine pH 5.5, Ur Specific [place] 1.020, Urine Protein Trace, Urine Glucose (UA) Negative, Urine Ketones 2+, Urine Blood 1+, Urine Nitrate Negative, Urine Bilirubin Negative, Urine Urobilinogen 0.2, Ur Leukocyte Esterase Negative, Urine WBC 3-5, Ur Squamous Epith Cells Occasional, Urine Bacteria Trace I & O for Last 24 hours: Intake & Output 09/27/24 09/28/24 09/29/24 09/30/24 23:59 23:59 23:59 23:59 Intake Total 2189 Output Total 70 / 70 Balance 2119 Weight 54.431 kg 53.8 kg Constitutional Constitutional: no acute distress, thin and cooperative *Routine HEENT Exam Head: Present normocephalic Eye: Present EOMI and PERRL ENT: Present mucous membranes moist *Routine Neck Exam Neck: Present supple; Absent lymphadenopathy *Routine Respiratory Exam Respiratory: Present CTA bilaterally; Absent rhonchi, wheezes or crackles *Routine Cardiovascular Exam Cardiovascular: Present RRR *Routine Abdominal Exam Abdominal: Present soft, tenderness and drain Comments: Presence of RADHA drain, well-approximated incision *Routine Rectal Exam Rectal:: deferred *Routine Genitalia Exam Genitalia:: deferred *Routine Extremities Exam Extremities: Absent cyanosis, clubbing or edema *Routine Skin Exam Skin: Present intact and warm; Absent rash *Routine Neurological Exam Neurological: Present alert, oriented X3 and moving all extremities; Absent altered mental status Routine Psychiatric Exam Psychiatric: Present normal affect Assessment and Plan *Assessment and plan (1) Gastric perforation: Status: Acute Category: Medical Code(s): K25.5 - Chronic or unspecified gastric ulcer with perforation (2) Elevated brain natriuretic peptide (BNP) level: Status: Acute Category: Medical Code(s): R79.89 - Other specified abnormal findings of blood chemistry (3) Elevated troponin I level: Status: Acute Category: Medical Code(s): R79.89 - Other specified abnormal findings of blood chemistry (4) Hypertension: Status: Chronic Qualifiers: Hypertension type: primary hypertension Qualified Code(s): I10 - Essential (primary) hypertension Category: Medical Code(s): I10 - Essential (primary) hypertension (5) Hyperlipidemia: Status: Chronic Qualifiers: Hyperlipidemia type: mixed hyperlipidemia Qualified Code(s): E78.2 - Mixed hyperlipidemia Category: Medical Code(s): E78.5 - Hyperlipidemia, unspecified (6) Arthralgia: Status: Acute Qualifiers: Joint pain location: other joint Qualified Code(s): M25.59 - Pain in other specified joint Category: Medical Code(s): M25.50 - Pain in unspecified joint Plan Medical Decision Making: The patient presented with one week of escalating gastrointestinal symptoms and imaging suspicious for free air in the abdomen. Labs demonstrated leukocytosis (WBC 16.2 K/?L), elevated procalcitonin (3.83 ng /mL), and electrolyte abnormalities (hypokalemia and hypomagnesemia). Initial management included IV fluids given concern for potential sepsis due to tachycardia and elevated procalcitonin, alongside antiemetics and analgesics. CT imaging confirmed likely gastric/duodenal perforation, and General Surgery was consulted for urgent intervention. Intraoperatively, a large anterior duodenal perforation near the pyloric channel with well-established peritonitis was identified and addressed. Postoperatively, the patient?s abdominal pain and mild nausea are currently controlled with the existing medication regimen. Anterior Duodenal Perforation (Postoperative) * Patient has undergone surgical repair of a large duodenal perforation, with noted peritonitis and inflammatory exudate. She is now stable postoperatively. * Continue to closely monitor vital signs, urine output, and laboratory values for any signs of ongoing infection or deterioration. * Maintain nothing by mouth (NPO) status per surgical team?s recommendations regarding oral intake advancement. * Ensure adequate IV fluid resuscitation and electrolyte repletion, with a particular focus on potassium and magnesium. * Currently NG to low intermittent wall suction * Continue Protonix 40 mg IV twice daily Abdominal Pain and Mild Nausea * The patient reports moderate abdominal pain and mild nausea that appear well- controlled on her current regimen. * Continue scheduled analgesics for pain control, adjusting as needed for breakthrough pain. * Maintain antiemetic therapy to control nausea. * Reassess pain level regularly and taper medications as tolerated. Electrolyte Abnormalities (Hypokalemia, Hypomagnesemia) * Replete electrolytes per standard hospital protocol. * Obtain repeat electrolyte panels to guide ongoing supplementation. Infection/Sepsis Precautions * Elevated procalcitonin and leukocytosis raise concern for possible sepsis secondary to intra-abdominal infection from perforation. * Monitor WBC count, temperature, and hemodynamic status. * IV Zosyn antibiotics as directed by surgical and infectious disease guidelines. * Escalate care as needed if signs of sepsis persist or worsen. Disposition * Patient is postoperative with close surgical follow-up required. * Admit to a surgical or intermediate care unit for continued monitoring. * Arrange ongoing care coordination with General Surgery for postoperative management and follow-up. * VTE prophylaxis with SCDs * GI prophylaxis with high-dose PPI * * Rounded on patient after nurse practitioner. Personally examined and interviewed patient. Agree with exam findings and care plan as documented.
[2024-09-30] MEDS: PIPERCILLIN/TAZO 3.375 GM in 0.9 % SODIUM CHLORIDE 50 ML IV ×3 (05:03→20:39)
--- NOTE | 2024-09-30 06:47 | PC.NURSE ---
Pt a/o x4. Pt has midline incision to abdomen, dsg CDI. RADHA drain to right abdomen in place. Total of 130ml output since arriving to floor. NG in place at 61cm. Total of 250ml output from NG. Suarez catheter in place draining clear yellow urine. 550ml of urine measured during shift. Pt has voiced complaints of abdominal pain at incision site. PRN pain medication administered per MAR. Bowel sounds hypoactive this AM. at bedside. Call light within reach.
--- NOTE | 2024-09-30 07:02 | EXP.SURG.PN ---
Subjective Narrative: Patient without significant complaints. Doing quite well. Exam Data for Last 24 hours Vital signs and Labs for Last 24 Hours: Temp Pulse Resp BP Pulse Ox O2 Del Method 98.2 F 95 H 18 137/71 95 Room Air 09/30/24 04:00 09/30/24 04:00 09/30/24 04:00 09/30/24 04:00 09/30/24 04:00 09/30/24 06:47 Laboratory Results - last 24 hr 09/29/24 14:51: WBC 16.2 H, RBC 4.34, Hgb 13.2, Hct 38.1, MCV 87.8, MCH 30.4, MCHC 34.6, RDW 12.3, Plt Count 240, MPV 11.6 H, Neut % (Auto) 90.5 H, Lymph % (Auto) 2.6 L, [place] % (Auto) 6.0, Eos % (Auto) 0.1, Baso % (Auto) 0.3, Neut # (Auto) 14.7 H, Lymph # (Auto) 0.4 L, [place] # (Auto) 1.0, Eos # (Auto) 0.0, Baso # (Auto) 0.1, Total Counted 100, Neutrophils % (Manual) 86 H, Band Neutrophils % 1.0, Lymphocytes % (Manual) 3 L, Monocytes % (Manual) 10 H, Platelet Estimate Normal, RBC Morphology Normal, Sodium 136, Potassium 3.2 L, Chloride 100, Carbon Dioxide 26, Anion Gap 13.2, BUN 27 H, Creatinine 0.60, Estimated Creat Clear 42, Estimated GFR 98, Est GFR ( Amer) 118, Glucose 112 H, Calcium 8.6, Magnesium 1.4 L, Total Bilirubin 1.1, AST 26, ALT 21, Alkaline Phosphatase 112, Total Protein 6.5, Albumin 3.4 L, Globulin 3.1, Albumin/Globulin Ratio 1.1, Procalcitonin 3.83 H, HCV Ab GERA w/Rflx PCR Qn Negative, HIV Ag/Ab Combo Qual Negative 09/29/24 16:42: Urine Color Yellow, Urine Appearance Clear, Urine pH 6.0, Ur Specific [place] 1.010, Urine Protein 1+ A, Urine Glucose (UA) Negative, Urine Ketones 2+, Urine Blood Trace-i, Urine Nitrate Negative, Urine Bilirubin 1+ A, Urine Urobilinogen 0.2, Ur Leukocyte Esterase Negative, Urine RBC Occasional, Urine WBC 3-5, Ur Squamous Epith Cells 3-5, Urine Bacteria 1+, Urine Mucus 3+ 09/29/24 18:24: Urine Color Yellow, Urine Appearance Clear, Urine pH 5.5, Ur Specific [place] 1.020, Urine Protein Trace, Urine Glucose (UA) Negative, Urine Ketones 2+, Urine Blood 1+, Urine Nitrate Negative, Urine Bilirubin Negative, Urine Urobilinogen 0.2, Ur Leukocyte Esterase Negative, Urine WBC 3-5, Ur Squamous Epith Cells Occasional, Urine Bacteria Trace I & O for Last 24 hours: Intake & Output 09/27/24 09/28/24 09/29/24 09/30/24 11:59 11:59 11:59 11:59 Intake Total 3315 / 3315 Output Total 580 / 580 Balance 2735 / 2735 Weight 118 lb 9.739 oz *Routine Abdominal Exam Abdominal: Present soft Comments: Dressing dry. Progress Note: A&P Assessment and plan (1) Gastric perforation: Status: Acute Assessment and plan: JACKLYN Suarez. Increase activity. (2) Elevated brain natriuretic peptide (BNP) level: Status: Acute (3) Elevated troponin I level: Status: Acute (4) Hypertension: Status: Chronic (5) Hyperlipidemia: Status: Chronic (6) Arthralgia: Status: Acute
--- NOTE | 2024-09-30 07:33 | HMH.PHAINT1 ---
Pharmacy Intervention Comments: HOME MEDICATION LIST VERIFIED USING LIST FROM OUTPATIENT PHARMACY AND PT INTERVIEW
[2024-09-30 07:40] LABS: Basophils % 0.2 % (0.1-2.0); Hematocrit 35.3 % (37.0-47.0); Hemoglobin 12.1 g/dL (12.2-16.2); Lymphocytes # 0.8 K/mm3 (0.7-4.5); Lymphocytes % 6.4 % (10-50); Mean Corpuscular HGB Conc 34.3 g/dL (31.8-35.4); Mean Corpuscular Volume 87.6 fl (81-99); Mean Platelet Volume 10.9 fl (7.4-10.4); Monocytes # 0.9 K/mm3 (0.1-1.0); Monocytes % 6.6 % (1.7-9.3); Neutrophils # 11.4 K/mm3 (1.8-7.8); Neutrophils % 86.3 % (37.0-80.0); Platelet Count 246 K/mm3 (142-424); Red Blood Count 4.03 M/mm3 (4.20-5.40); Red Cell Distribution Width 12.7 % (11.5-17.5); White Blood Count 13.2 K/mm3 (4.8-10.8)
[2024-09-30] MEDS: MORPHINE 4MG/ML SYRINGE 4 MG IV (07:44)
[2024-09-30] MEDS: PANTOPRAZOLE 40MG VIAL 40 MG IV ×2 (07:46→20:33)
[2024-09-30] MEDS: SODIUM CHLORIDE 0.9% 10ML VIAL 10 ML IV ×2 (07:46→20:33)
[2024-09-30 07:48] LABS: Anion Gap 11.3 mEq/L (5-15); Blood Urea Nitrogen 20 mg/dl (7-17); Calcium 7.9 mg/dl (8.4-10.2); Carbon Dioxide 25 mmol/L (22.0-30.0); Chloride 103 mmol/L (98-107); Creatinine Clearance Estimated 42 mL/min (50-200); Estimated Glomerular Filt Rate 82 ml/min (>60); GFR (African American) 99 ML/MIN (>60); Glucose 103 mg/dl (74-100); Magnesium 1.9 mg/dl (1.6-2.3); Potassium 4.3 mmoL/L (3.5-5.1); Sodium 135 mmol/L (136-145)
--- NOTE | 2024-09-30 09:11 | HMH.PTEV ---
Physical Therapy Evaluation Rehab PT IP Evaluation Start: 09/29/24 19:50 Freq: ONCE Status: Active Protocol: Document 09/30/24 09:04 DEBBIE (Rec: 09/30/24 09:10 DEBBIE [id number]) Subjective/History History History Pt is a pleasant 74 y/o female who presents s/p abdominal repair 09/29/24. Pt lives in a single-story home with her . Pt has 1 SASHA home. Pt normally IND with all mobility including driving. Pt 's present throughout day/night to assist with mobility if needed. Subjective Subjective Pt reports she is IND with mobility at baseline. New diagnosis of cancer in past 12 No months? Rehab PT IP Eval Objective Appearance Patient Behavior Appropriate,Cooperative Patient Orientation Person,Place Difficulty following instructions none Speech Pattern Clear Ambulation Patient Able to Ambulate Yes Ambulation Observation IP General Gait Pattern Observation Narrow Based Gait Ambulation Distance (feet) 15 Ambulation Assistive Device None Ambulation Ability Contact Guard/Hand Hold Balance Ability to Arise Able, uses arms to help Sitting Balance Steady, safe Standing Balance Steady, wide stance Dynamic Sitting Balance Ability Good Dynamic Standing Balance Ability Good Transfers Bed Transfer Ability Minimal x 1 (25% assist) Sit to Stand Bed Transfer Ability Contact Guard/Hand Hold Rehab PT IP prob,goals,plan Problems Date of Evaluation: 09/30/24 PT IP Problems Transfers,Gait,Balance,Safety Rehab Potential Rehab Potential Good Plan PT Intervention Plan Transfers,Gait,Balance,Safety, Therapeutic Exercise Other Intervention Plan 1-2 times PT Plan Frequency Daily Duration LOS Discharge Goals Bed Transfer Ability Independent Sit to Stand Chair Transfer Ability Independent Ambulation Distance (feet) 80 Discharge Plan PT Discharge Plan Initial physical therapy evaluation performed. Patient presents below baseline at this time in functional mobility, transfers, gait, and strength. Pt would benefit from skilled PT while at [facility] to prevent further functional decline and maximize safety with mobility. Pt most appropriate to d/c home when deemed medically necessary d/t current level of mobility, home set-up, and family support. PT recommending home health PT services to address strength deficits. Eval Complexity Eval Charge Codes 22197 - Moderate Complexity PHYSICIAN CERTIFICATION: I certify the specified therapy services for Emma Clements are required, authorized, and reviewed every 30 days.
[2024-09-30 09:26] LABS: Troponin I < 0.01 ng/ml (0.00-0.034)
--- NOTE | 2024-09-30 10:18 | EXP.ACUTE.PN ---
Subjective *Date: 09/30/24 *Time: 13:33 Interval history: Patient feeling little better this morning. No nausea or vomiting. No gas or bowel movement as of yet. Denies any chest pain. Having some mild abdominal discomfort. Afebrile Medical Exam Vital signs and Labs for Last 24 Hours: Vital Signs Temp Pulse Pulse Resp BP BP Pulse Ox 09/30/24 08:00 98 F 98 H 18 134/80 95 09/30/24 06:47 09/30/24 05:00 09/30/24 04:00 98.2 F 95 H 18 137/71 95 09/30/24 03:00 94 H 17 142/87 H 96 09/30/24 02:42 09/30/24 02:00 97 H 15 137/81 98 09/30/24 01:00 109 H 14 132/74 95 09/30/24 00:36 09/30/24 00:00 97.6 F 104 H 15 136/71 96 09/29/24 23:00 09/29/24 23:00 104 H 16 143/83 H 96 09/29/24 22:30 96 H 17 159/79 H 98 09/29/24 22:00 95 H 14 154/78 H 97 09/29/24 21:30 97.8 F 94 H 17 143/74 H 98 09/29/24 21:00 93 H 15 146/72 H 97 09/29/24 21:00 09/29/24 20:45 97.7 F 101 H 16 155/80 H 97 09/29/24 20:30 107 H 17 155/96 H 99 09/29/24 20:15 97.7 F 122 H 14 176/103 H 96 09/29/24 19:55 98.1 F 95 H 16 175/96 H 97 09/29/24 19:45 98.1 F 92 H 16 160/89 H 97 09/29/24 19:35 98.1 F 98 H 16 164/91 H 95 09/29/24 19:32 98 F 96 H 16 161/89 H 09/29/24 19:25 98.1 F 99 H 16 169/89 H 93 L 09/29/24 19:22 09/29/24 17:45 98.0 F 111 H 16 126/68 09/29/24 16:45 97.9 F 111 H 16 126/68 100 01/22/25 15:28 111 H 16 126/68 100 09/29/24 14:30 97.9 F 125 H 18 151/94 H 98 O2 Del Method 09/30/24 08:00 Room Air 09/30/24 06:47 Room Air 09/30/24 05:00 Room Air 09/30/24 04:00 Room Air 09/30/24 03:00 Room Air 09/30/24 02:42 Room Air 09/30/24 02:00 Room Air 09/30/24 01:00 Room Air 09/30/24 00:36 Room Air 09/30/24 00:00 Room Air 09/29/24 23:00 Room Air 09/29/24 23:00 Room Air 09/29/24 22:30 Room Air 09/29/24 22:00 Room Air 09/29/24 21:30 Room Air 09/29/24 21:00 Room Air 09/29/24 21:00 Room Air 09/29/24 20:45 Room Air 09/29/24 20:30 Room Air 09/29/24 20:15 Room Air 09/29/24 19:55 Room Air 09/29/24 19:45 Room Air 09/29/24 19:35 Room Air 09/29/24 19:32 09/29/24 19:25 Room Air 09/29/24 19:22 Room Air 09/29/24 17:45 Room Air 09/29/24 16:45 Room Air 09/29/24 15:28 Room Air 09/29/24 14:30 Room Air Intake and Output 09/29/24 09/30/24 09/30/24 23:59 07:59 15:59 Intake Total 2189 / 2189 1125 / 1125 Output Total 70 / 70 510 / 510 Balance 2120 / 2120 615 / 615 Intake: CBI Fluid - Amount Retained 250 / 250 Suarez 250 / 250 Intake, Total IV Amount 1939 1125 / 1125 KCl 10mEq/100ml 100 ml @ 100 390 / 390 mls/hr IV Q1H [facility] Rx#:[id number] Lactated Ringers 1000ML 1,000 685 / 685 ml @ 100 mls/hr IV .Q10H [facility] Rx #:[id number] Pipercillin/Tazo 3.375 gm In 0. 40 / 40 50 / 50 9 % Sodium Chloride 50 ml @ 100 mls/hr IV Q8H [facility] Rx#: [id number] Output: Output, Urine Amount 200 / 200 Output, Gastric Drainage Amount 250 / 250 Left Nare 250 / 250 Output, Drainage Amount 70 / 70 60 / 60 Right Abdomen 70 / 70 60 / 60 Other: Weight 53.8 kg Patient Weight 09/30/24 23:59 Weight 53.8 kg Laboratory Results - last 24 hr 09/29/24 14:51: WBC 16.2 H, RBC 4.34, Hgb 13.2, Hct 38.1, MCV 87.8, MCH 30.4, MCHC 34.6, RDW 12.3, Plt Count 240, MPV 11.6 H, Neut % (Auto) 90.5 H, Lymph % (Auto) 2.6 L, [place] % (Auto) 6.0, Eos % (Auto) 0.1, Baso % (Auto) 0.3, Neut # (Auto) 14.7 H, Lymph # (Auto) 0.4 L, [place] # (Auto) 1.0, Eos # (Auto) 0.0, Baso # (Auto) 0.1, Total Counted 100, Neutrophils % (Manual) 86 H, Band Neutrophils % 1.0, Lymphocytes % (Manual) 3 L, Monocytes % (Manual) 10 H, Platelet Estimate Normal, RBC Morphology Normal, Sodium 136, Potassium 3.2 L, Chloride 100, Carbon Dioxide 26, Anion Gap 13.2, BUN 27 H, Creatinine 0.60, Estimated Creat Clear 42, Estimated GFR 98, Est GFR ( Amer) 118, Glucose 112 H, Calcium 8.6, Magnesium 1.4 L, Total Bilirubin 1.1, AST 26, ALT 21, Alkaline Phosphatase 112, Total Protein 6.5, Albumin 3.4 L, Globulin 3.1, Albumin/Globulin Ratio 1.1, Procalcitonin 3.83 H, HCV Ab GERA w/Rflx PCR Qn Negative, HIV Ag/Ab Combo Qual Negative 09/29/24 16:42: Urine Color Yellow, Urine Appearance Clear, Urine pH 6.0, Ur Specific [place] 1.010, Urine Protein 1+ A, Urine Glucose (UA) Negative, Urine Ketones 2+, Urine Blood Trace-i, Urine Nitrate Negative, Urine Bilirubin 1+ A, Urine Urobilinogen 0.2, Ur Leukocyte Esterase Negative, Urine RBC Occasional, Urine WBC 3-5, Ur Squamous Epith Cells 3-5, Urine Bacteria 1+, Urine Mucus 3+ 09/29/24 18:24: Urine Color Yellow, Urine Appearance Clear, Urine pH 5.5, Ur Specific [place] 1.020, Urine Protein Trace, Urine Glucose (UA) Negative, Urine Ketones 2+, Urine Blood 1+, Urine Nitrate Negative, Urine Bilirubin Negative, Urine Urobilinogen 0.2, Ur Leukocyte Esterase Negative, Urine WBC 3-5, Ur Squamous Epith Cells Occasional, Urine Bacteria Trace 09/30/24 07:10: WBC 13.2 H, RBC 4.03 L, Hgb 12.1 L, Hct 35.3 L, MCV 87.6, MCH 30.0, MCHC 34.3, RDW 12.7, Plt Count 246, MPV 10.9 H, Neut % (Auto) 86.3 H, Lymph % (Auto) 6.4 L, [place] % (Auto) 6.6, Eos % (Auto) 0.0 L, Baso % (Auto) 0.2, Neut # (Auto) 11.4 H, Lymph # (Auto) 0.8, [place] # (Auto) 0.9, Eos # (Auto) 0.0, Baso # (Auto) 0.0, Sodium 135 L, Potassium 4.3 D, Chloride 103, Carbon Dioxide 25, Anion Gap 11.3, BUN 20 H D, Creatinine 0.70, Estimated Creat Clear 42, Estimated GFR 82, Est GFR ( Amer) 99, Glucose 103 H, Calcium 7.9 L, Magnesium 1.9 D, Troponin I < 0.01 I & O for Labs for Last 24 Hours: Intake & Output 09/27/24 09/28/24 09/29/24 09/30/24 23:59 23:59 23:59 23:59 Intake Total 2189 / 2189 1125 / 1125 Output Total 70 / 70 510 / 510 Balance 2119 615 / 615 Weight 54.431 kg 53.8 kg Constitutional: Present no acute distress Respiratory: Present normal respiratory effort Cardiac: Present Reg Rate and Rhythm GI: Present normal bowel sounds; Absent tenderness Extremities: Present normal inspection and full ROM Skin: Present intact; Absent erythema Neuro: Present Grossly Intact and moves all extremities Assessment and Plan *Assessment and plan (1) Gastric perforation: Status: Acute Category: Medical Code(s): K25.5 - Chronic or unspecified gastric ulcer with perforation (2) Elevated brain natriuretic peptide (BNP) level: Status: Acute Category: Medical Code(s): R79.89 - Other specified abnormal findings of blood chemistry (3) Elevated troponin I level: Status: Acute Category: Medical Code(s): R79.89 - Other specified abnormal findings of blood chemistry (4) Hypertension: Status: Chronic Qualifiers: Hypertension type: primary hypertension Qualified Code(s): I10 - Essential (primary) hypertension Category: Medical Code(s): I10 - Essential (primary) hypertension (5) Hyperlipidemia: Status: Chronic Qualifiers: Hyperlipidemia type: mixed hyperlipidemia Qualified Code(s): E78.2 - Mixed hyperlipidemia Category: Medical Code(s): E78.5 - Hyperlipidemia, unspecified (6) Arthralgia: Status: Acute Qualifiers: Joint pain location: other joint Qualified Code(s): M25.59 - Pain in other specified joint Category: Medical Code(s): M25.50 - Pain in unspecified joint Plan Medical Decision Making: The patient presented with one week of escalating gastrointestinal symptoms and imaging suspicious for free air in the abdomen. Labs demonstrated leukocytosis (WBC 16.2 K/?L), elevated procalcitonin (3.83 ng/mL), and electrolyte abnormalities (hypokalemia and hypomagnesemia). Initial management included IV fluids given concern for potential sepsis due to tachycardia and elevated procalcitonin, alongside antiemetics and analgesics. CT imaging confirmed likely gastric/duodenal perforation, and General Surgery was consulted for urgent intervention. Intraoperatively, a large anterior duodenal perforation near the pyloric channel with well-established peritonitis was identified and addressed. Postoperatively, the patient?s abdominal pain and mild nausea are currently controlled with the existing medication regimen. Continues to require inpatient management. Problems addressed as follows: Anterior Duodenal Perforation Abdominal pain Nausea and vomiting -Found to have abrasion in stomach. Closed in the OR yesterday. Patient doing better this morning. NG remains in place. - Continue Zosyn 3.375 g every 8 hours - Discontinue LR, initiate D5 LR at 75 cc an hour as patient remains NPO. - Continue pain control with morphine 4 mg IV every 4 hours as needed with 2 mg every 4 hours for additional breakthrough. Monitor for toxicity. - Continue pantoprazole 40 mg IV twice daily. Monitoring for improvement in bowel function prior to advancing diet. -Discussed case with surgery, anticipate repeat imaging with contrast in the morning to monitor for leakage. -White count 13, hemoglobin 12. Kidney function normal BUN 20, creatinine 0.7. Repeat CBC, CMP, magnesium ordered for the morning. -Nausea and vomiting resolved. Zofran as needed every 8 hours Electrolyte Abnormalities (Hypokalemia, Hypomagnesemia) -Potassium normal at 4.3, magnesium 1.9. Will replace per protocol. Full code VTE prophylaxis with SCDs Pantoprazole as above
[2024-09-30] MEDS: DEXTROSE 5%-LACTATED RINGERS 1,000 ML 75 ML IV ×2 (11:59→20:40)
--- NOTE | 2024-09-30 15:06 | P.PNANES_ITS ---
[facility] Anesthesia Record Part II Anesthesia Record Part II Discharge Time: 19:55 Destination: Medical Surgical Department PACU nurse assessment reviewed?: Yes Patient Condition:: Good Anesthesia Complications:: None Swallowing reflex intact?: Yes Airway Patency: Patent Cyanosis?: No Blood Pressure: 175/96 SaO2: 97 Respiratory Rate: 16 Pulse Rate: 95 Temperature: 98.1 F Mental Status: Alert & Oriented Pain level:: 0 Nausea and/or vomitting:: None Intake, IV Amount: 0 Hydration: Adequate
[2024-09-30] MEDS: MAGNESIUM SULFATE IN WATER 2 GM/50 ML PIGGYBACK IV (17:27)
[2024-10-01] VITALS (7 sets, daily range): BP systolic 129–162; BP diastolic 69–82; PULSE 106–120; RESP 16–18; TEMP 36.4–36.9; O2SAT 95–98; BMI 20.9
[2024-10-01] MEDS: DEXTROSE 5%-LACTATED RINGERS 1,000 ML 75 ML IV ×3 (00:55→18:04)
[2024-10-01] MEDS: PIPERCILLIN/TAZO 3.375 GM in 0.9 % SODIUM CHLORIDE 50 ML IV ×3 (03:39→20:51)
--- NOTE | 2024-10-01 05:00 | PC.NURSE ---
Pt. alert and orientated x 4. Pt. on room air. MILINE upper abdominal incision with dressing in place, clean dry and intact. Pt. has minimal pain while the bed. When upright pain more inetense. Pt. medicated x 1 with paind Pt. was up ambulating in the [address]. Pt. has a lert nare NG tube to continuous low wall suction. VSS. Peronal items and call bunn in reach.
--- NOTE | 2024-10-01 06:19 | FL_ITS ---
FINAL REPORT CLINICAL HISTORY: PERFORATED DUODENAL ULCER 1.49 fluoro time 1050.09 dap FINDINGS: UPPER GI EXAM HISTORY: Perforated duodenal ulcer. Status post surgical repair of duodenal ulcer. Fluoro time: 1 minute 49 seconds DAP: 1050.09 uGy.m2 PROCEDURE: Gastrografin contrast was gently injected the patient's existing nasogastric tube. 10 fluoroscopic spot films and overhead radiographs were obtained. FINDINGS: Preliminary brass molder helper film demonstrates nasogastric tube to terminate within the stomach. The stomach empties appropriately. No extravasation of contrast was demonstrated during the exam. IMPRESSION: No leak or obstruction identified. Films reviewed, interpreted and dictated by Dr. Villa. Transcribed by Joseph Arellano PA-C. Reviewed, Interpreted and Dictated by Hany Villa MD Transcribed by THERESA Sandy Authenticated and [facility]
[2024-10-01 07:18] LABS: Basophils % 0.1 % (0.1-2.0); Eosinophils # 0.1 K/mm3 (0.0-0.4); Eosinophils % 0.3 % (0.1-12.0); Hematocrit 34.8 % (37.0-47.0); Hemoglobin 11.7 g/dL (12.2-16.2); Lymphocytes # 1.2 K/mm3 (0.7-4.5); Lymphocytes % 8.2 % (10-50); Mean Corpuscular HGB Conc 33.6 g/dL (31.8-35.4); Mean Corpuscular Hemoglobin 30.1 pg (27.0-31.2); Mean Corpuscular Volume 89.5 fl (81-99); Mean Platelet Volume 10.4 fl (7.4-10.4); Monocytes # 1.5 K/mm3 (0.1-1.0); Monocytes % 10.5 % (1.7-9.3); Neutrophils # 11.6 K/mm3 (1.8-7.8); Neutrophils % 79.3 % (37.0-80.0); Platelet Count 299 K/mm3 (142-424); Red Blood Count 3.89 M/mm3 (4.20-5.40); Red Cell Distribution Width 13.3 % (11.5-17.5); White Blood Count 14.7 K/mm3 (4.8-10.8)
--- NOTE | 2024-10-01 07:21 | EXP.SURG.PN ---
Subjective Narrative: Patient without any complaints whatsoever. Has had about 650 cc out of NG tube. Thin serous fluid from RADHA drain. Exam Data for Last 24 hours Vital signs and Labs for Last 24 Hours: Temp Pulse Resp BP Pulse Ox O2 Del Method 98.0 F 109 H 18 136/69 98 Room Air 10/01/24 04:00 10/01/24 04:00 10/01/24 04:00 10/01/24 04:00 10/01/24 04:00 10/01/24 06:54 Laboratory Results - last 24 hr 09/30/24 07:10: WBC 13.2 H, RBC 4.03 L, Hgb 12.1 L, Hct 35.3 L, MCV 87.6, MCH 30.0, MCHC 34.3, RDW 12.7, Plt Count 246, MPV 10.9 H, Neut % (Auto) 86.3 H, Lymph % (Auto) 6.4 L, [place] % (Auto) 6.6, Eos % (Auto) 0.0 L, Baso % (Auto) 0.2, Neut # (Auto) 11.4 H, Lymph # (Auto) 0.8, [place] # (Auto) 0.9, Eos # (Auto) 0.0, Baso # (Auto) 0.0, Sodium 135 L, Potassium 4.3 D, Chloride 103, Carbon Dioxide 25, Anion Gap 11.3, BUN 20 H D, Creatinine 0.70, Estimated Creat Clear 42, Estimated GFR 82, Est GFR ( Amer) 99, Glucose 103 H, Calcium 7.9 L, Magnesium 1.9 D, Troponin I < 0.01 I & O for Last 24 hours: Intake & Output 09/28/24 09/29/24 09/30/24 10/01/24 11:59 11:59 11:59 11:59 Intake Total 3315 / 3315 567 / 567 Output Total 580 / 580 800 / 800 Balance 2735 / 2735 -233 / -233 Weight 118 lb 9.739 oz 130 lb *Routine Abdominal Exam Abdominal: Present soft Progress Note: A&P Assessment and plan (1) Gastric perforation: Status: Acute Assessment and plan: Gastroview upper GI today to evaluate for obstruction or leak. Patient has persistent mild tachycardia. (2) Elevated brain natriuretic peptide (BNP) level: Status: Acute (3) Elevated troponin I level: Status: Acute (4) Hypertension: Status: Chronic (5) Hyperlipidemia: Status: Chronic (6) Arthralgia: Status: Acute
[2024-10-01 07:29] LABS: Albumin Level 2.4 g/dl (3.5-5.0); Chloride 103 mmol/L (98-107); Potassium 3.5 mmoL/L (3.5-5.1); Sodium 136 mmol/L (136-145)
[2024-10-01 07:32] LABS: Alanine Aminotransferase 21 U/L (12-78); Albumin/Globulin Ratio 0.9 (1.1-1.8); Alkaline Phosphatase 104 U/L (38-126); Anion Gap 7.5 mEq/L (5-15); Aspartate Amino Transferase 30 U/L (14-36); Bilirubin,Total 0.4 mg/dl (0.2-1.3); Calcium 7.6 mg/dl (8.4-10.2); Carbon Dioxide 29 mmol/L (22.0-30.0); Globulin 2.6 g/dL (1.3-3.2); Glucose 140 mg/dl (74-100); Magnesium 2.2 mg/dl (1.6-2.3)
[2024-10-01 07:37] LABS: Blood Urea Nitrogen 26 mg/dl (7-17); Creatinine Clearance Estimated 46 mL/min (50-200); Estimated Glomerular Filt Rate 82 ml/min (>60); GFR (African American) 99 ML/MIN (>60)
[2024-10-01] MEDS: PANTOPRAZOLE 40MG VIAL 40 MG IV ×2 (08:35→20:51)
[2024-10-01 09:34] LABS: Procalcitonin 2.42 ng/mL (0.0-2.0)
[2024-10-01] MEDS: DIATRIZOATE MEGLUMINE(GASTROGRAFIN) 66%-10% 120ML 120 ML PO ×2 (10:01→10:04)
--- NOTE | 2024-10-01 10:26 | SW/DCPLANNER ---
I spoke w/ patient this AM regarding plans once medically stable for discharge. PT/OT evaluated patient and recommended home w/ or home health services at time of discharge. Patient stated that she is feeling much better and feels that she does not need home health at this time. I will continue to follow up w/ this patient until medically stable for discharge. Discharge date is unknown at this time.
--- NOTE | 2024-10-01 12:05 | PC.NURSE ---
ng tube removed at this time pt tolerated well
[2024-10-01] MEDS: MORPHINE 2MG/ML SYRINGE 2 MG IV ×3 (13:08→22:39)
--- NOTE | 2024-10-01 17:50 | EXP.ACUTE.PN ---
Subjective *Date: 10/01/24 *Time: 17:50 Interval history: Patient walking the halls on rounds this morning. Denies significant abdominal pain, having some improvement. Stable on room air. Starting of rumblings in her belly but has not passed gas yet. No nausea or vomiting. NG remains in place. Medical Exam Vital signs and Labs for Last 24 Hours: Vital Signs Temp Pulse Resp BP Pulse Ox O2 Del Method 10/01/24 16:00 98.4 F 114 H 18 130/76 96 Room Air 10/01/24 14:44 Room Air 10/01/24 13:00 Room Air 10/01/24 11:54 97.8 F 118 H 18 147/76 H 95 Room Air 10/01/24 11:00 Room Air 10/01/24 09:00 Room Air 10/01/24 08:00 Room Air 10/01/24 08:00 97.8 F 106 H 18 131/69 96 Room Air 10/01/24 06:54 Room Air 10/01/24 05:00 Room Air 10/01/24 04:00 98.0 F 109 H 18 136/69 98 Room Air 10/01/24 03:00 Room Air 10/01/24 00:50 Room Air 10/01/24 00:00 97.6 F 120 H 17 162/82 H 95 Nasal Cannula 09/30/24 23:00 Room Air 09/30/24 21:00 Room Air 09/30/24 20:00 Room Air 09/30/24 20:00 98.1 F 118 H 18 130/76 94 L Room Air 09/30/24 18:33 Room Air Intake and Output 10/01/24 10/01/24 10/01/24 07:59 15:59 23:59 Intake Total 567 / 567 Output Total 650 / 650 0 / 650 Balance -83 / -83 0 / -83 Intake: Intake, Total IV Amount 567 / 567 Lactated Ringers 1000ML 1,000 517 / 517 ml @ 100 mls/hr IV .Q10H [facility] Rx #:[id number] Pipercillin/Tazo 3.375 gm In 0. 50 / 50 9 % Sodium Chloride 50 ml @ 100 mls/hr IV Q8H [facility] Rx#:[id number] Output: Output, Urine Amount 0 / 0 Output, Gastric Drainage Amount 650 / 650 Left Nare 650 / 650 Other: Weight 58.967 kg Patient Weight 10/01/24 23:59 Weight 58.967 kg Laboratory Results - last 24 hr 10/01/24 06:55: WBC 14.7 H, RBC 3.89 L, Hgb 11.7 L, Hct 34.8 L, MCV 89.5, MCH 30.1, MCHC 33.6, RDW 13.3, Plt Count 299, MPV 10.4, Neut % (Auto) 79.3, Lymph % (Auto) 8.2 L, [place] % (Auto) 10.5 H, Eos % (Auto) 0.3, Baso % (Auto) 0.1, Neut # (Auto) 11.6 H, Lymph # (Auto) 1.2, [place] # (Auto) 1.5 H, Eos # (Auto) 0.1, Baso # (Auto) 0.0, Sodium 136, Potassium 3.5, Chloride 103, Carbon Dioxide 29, Anion Gap 7.5, BUN 26 H D, Creatinine 0.70, Estimated Creat Clear 46, Estimated GFR 82, Est GFR ( Amer) 99, Glucose 140 H D, Calcium 7.6 L, Magnesium 2.2 D, Total Bilirubin 0.4, AST 30, ALT 21, Alkaline Phosphatase 104, Total Protein 5.0 L, Albumin 2.4 L, Globulin 2.6, Albumin/Globulin Ratio 0.9 L, Procalcitonin 2.42 H I & O for Labs for Last 24 Hours: Intake & Output 09/28/24 09/29/24 09/30/24 10/01/24 23:59 23:59 23:59 23:59 Intake Total 2190 / 2190 1125 / 1692 567 / 567 Output Total 70 / 70 660 / 1310 650 / 650 Balance 2119 / 2119 465 / 382 -83 / -83 Weight 54.431 kg 53.8 kg 58.967 kg Constitutional: Present no acute distress Comment:: NG in left nare Respiratory: Present normal respiratory effort Cardiac: Present Reg Rate and Rhythm GI: Present normal bowel sounds; Absent tenderness Extremities: Present normal inspection and full ROM Skin: Present intact; Absent erythema Neuro: Present Grossly Intact and moves all extremities Assessment and Plan *Assessment and plan (1) Gastric perforation: Status: Acute Category: Medical Code(s): K25.5 - Chronic or unspecified gastric ulcer with perforation (2) Elevated brain natriuretic peptide (BNP) level: Status: Acute Category: Medical Code(s): R79.89 - Other specified abnormal findings of blood chemistry (3) Elevated troponin I level: Status: Acute Category: Medical Code(s): R79.89 - Other specified abnormal findings of blood chemistry (4) Hypertension: Status: Chronic Qualifiers: Hypertension type: primary hypertension Qualified Code(s): I10 - Essential (primary) hypertension Category: Medical Code(s): I10 - Essential (primary) hypertension (5) Hyperlipidemia: Status: Chronic Qualifiers: Hyperlipidemia type: mixed hyperlipidemia Qualified Code(s): E78.2 - Mixed hyperlipidemia Category: Medical Code(s): E78.5 - Hyperlipidemia, unspecified (6) Arthralgia: Status: Acute Qualifiers: Joint pain location: other joint Qualified Code(s): M25.59 - Pain in other specified joint Category: Medical Code(s): M25.50 - Pain in unspecified joint Plan Ms. Clements presented with one week of escalating gastrointestinal symptoms and imaging suspicious for free air in the abdomen. Labs demonstrated leukocytosis (WBC 16.2 K/?L), elevated procalcitonin (3.83 ng/mL), and electrolyte abnormalities (hypokalemia and hypomagnesemia). Initial management included IV fluids given concern for potential sepsis due to tachycardia and elevated procalcitonin, alongside antiemetics and analgesics. CT imaging confirmed likely gastric/duodenal perforation, and General Surgery was consulted for urgent intervention. Intraoperatively, a large anterior duodenal perforation near the pyloric channel with well-established peritonitis was identified and addressed. Postoperatively, the patient?s abdominal pain and mild nausea are currently controlled with the existing medication regimen. Continues to require inpatient management. Problems addressed as follows: Anterior Duodenal Perforation Abdominal pain Nausea and vomiting - Found to have abrasion in stomach. Closed in the OR yesterday. Patient doing better this morning. NG remains in place. - Continue Zosyn 3.375 g every 8 hours - D5 LR at 75 cc an hour as patient remains NPO. - Continue pain control with morphine 4 mg IV every 4 hours as needed with 2 mg every 4 hours for additional breakthrough. Monitor for toxicity. - Continue pantoprazole 40 mg IV twice daily. Monitoring for improvement in bowel function prior to advancing diet. - Discussed case with surgery, Gastrografin study obtained showing no leak or obstruction. Continue n.p.o. pending improvement in bowel function. -White count stable at 14.7. Hemoglobin 11.7. Kidney function normal with BUN 26, creatinine 0.7. Repeat CBC, CMP, magnesium ordered for the morning. -Nausea and vomiting resolved. Zofran as needed every 8 hours -Procalcitonin showing improvement, down from 3.8 on admission to 2.4 today Electrolyte Abnormalities (Hypokalemia, Hypomagnesemia) -Potassium 3.5, magnesium 2.2. Replacing per protocol. Full code VTE prophylaxis with SCDs Pantoprazole as above
[2024-10-01] MEDS: ONDANSETRON 4MG/2ML VIAL 4 MG IV (18:04)
[2024-10-01] MEDS: SODIUM CHLORIDE 0.9% 10ML VIAL 10 ML IV (20:51)
[2024-10-02 03:59] VITALS: BP 137/77; PULSE 125; RESP 16; TEMP 36.8; O2SAT 96; BMI 20.9
[2024-10-02] MEDS: PIPERCILLIN/TAZO 3.375 GM in 0.9 % SODIUM CHLORIDE 50 ML IV ×3 (04:02→20:03)
[2024-10-02] MEDS: MORPHINE 2MG/ML SYRINGE 2 MG IV ×5 (04:03→20:54)
[2024-10-02] MEDS: DEXTROSE 5%-LACTATED RINGERS 1,000 ML 75 ML IV ×2 (04:08→20:02)
[2024-10-02 04:27] LABS: Basophils # 0.1 K/mm3 (0-0.2); Basophils % 0.4 % (0.1-2.0); Eosinophils # 0.1 K/mm3 (0.0-0.4); Eosinophils % 0.6 % (0.1-12.0); Lymphocytes # 2.4 K/mm3 (0.7-4.5); Lymphocytes % 12.8 % (10-50); Mean Corpuscular HGB Conc 33.4 g/dL (31.8-35.4); Mean Corpuscular Hemoglobin 29.7 pg (27.0-31.2); Mean Corpuscular Volume 88.8 fl (81-99); Monocytes % 8.5 % (1.7-9.3); Neutrophils % 73.7 % (37.0-80.0); Platelet Count 311 K/mm3 (142-424); Red Cell Distribution Width 13.5 % (11.5-17.5)
[2024-10-02 04:31] LABS: Hematocrit 34.1 % (37.0-47.0); Hemoglobin 11.4 g/dL (12.2-16.2); Red Blood Count 3.84 M/mm3 (4.20-5.40); White Blood Count 18.8 K/mm3 (4.8-10.8)
[2024-10-02 04:32] LABS: Mean Platelet Volume 10.5 fl (7.4-10.4); Monocytes # 1.6 K/mm3 (0.1-1.0); Neutrophils # 13.9 K/mm3 (1.8-7.8)
[2024-10-02 04:33] LABS: MANUAL DIFFERENTIAL MANUAL DIFFERENTIAL (MANUAL DIFF)
[2024-10-02 04:38] LABS: Magnesium 1.9 mg/dl (1.6-2.3)
[2024-10-02 04:39] LABS: Alanine Aminotransferase 21 U/L (12-78); Albumin Level 2.6 g/dl (3.5-5.0); Alkaline Phosphatase 118 U/L (38-126); Anion Gap 9.2 mEq/L (5-15); Aspartate Amino Transferase 30 U/L (14-36); Bilirubin,Total 0.6 mg/dl (0.2-1.3); Blood Urea Nitrogen 29 mg/dl (7-17); Carbon Dioxide 31 mmol/L (22.0-30.0); Chloride 103 mmol/L (98-107); Creatinine Clearance Estimated 46 mL/min (50-200); Estimated Glomerular Filt Rate 70 ml/min (>60); GFR (African American) 85 ML/MIN (>60); Globulin 2.6 g/dL (1.3-3.2); Glucose 109 mg/dl (74-100); Potassium 3.2 mmoL/L (3.5-5.1); Sodium 140 mmol/L (136-145); Total Protein,Serum 5.2 g/dl (6.3-8.2)
[2024-10-02 05:16] LABS: Lymphocytes % 14 % (10-50); Monocytes % 7 % (2-9); Neutrophils % 79 % (42-76); RBC Morphology Normal; Total Cells Counted 100
[2024-10-02 05:17] LABS: Platelet Estimate Normal
--- NOTE | 2024-10-02 05:40 | PC.NURSE ---
Pt. is alert and orientated x 4. Pt. on room air. Pt c/o pain to epigastric area at incision site. , midline incision covered with dressing RADHA drain to midline incision output htis shift 135 ml of serrous fluids. . Pt. medicated x 2 with Morphine for pain. Pt. diet ice chips carlito, tolerating ice chips well. Pt. up out of bed ambulates to bathroom and sits in chair. VSS Personal items and call bunn in reach.
--- NOTE | 2024-10-02 07:35 | EXP.ACUTE.PN ---
Subjective *Date: 10/02/24 *Time: 12:41 Interval history: Patient states he is feeling better. Got up and took a shower this morning. Minimal abdominal pain. Responds well to pain medication. Having loose stools. No nausea or vomiting. No shortness of breath or chest pain. Afebrile Medical Exam Vital signs and Labs for Last 24 Hours: Vital Signs Temp Pulse Resp BP Pulse Ox O2 Del Method 10/02/24 07:00 Room Air 10/02/24 05:00 Room Air 10/02/24 03:59 98.3 F 125 H 16 137/77 96 Room Air 10/02/24 03:00 Room Air 10/02/24 01:00 Room Air 10/01/24 23:37 98.1 F 113 H 16 129/79 95 Room Air 10/01/24 23:00 Room Air 10/01/24 21:00 Room Air 10/01/24 20:00 Room Air 10/01/24 19:40 98.2 F 116 H 18 155/72 H 96 Room Air 10/01/24 18:36 Room Air 10/01/24 17:00 Room Air 10/01/24 16:00 98.4 F 114 H 18 130/76 96 Room Air 10/01/24 14:44 Room Air 10/01/24 13:00 Room Air 10/01/24 11:54 97.8 F 118 H 18 147/76 H 95 Room Air 10/01/24 11:00 Room Air 10/01/24 09:00 Room Air 10/01/24 08:00 Room Air 10/01/24 08:00 97.8 F 106 H 18 131/69 96 Room Air Intake and Output 10/01/24 10/01/24 10/02/24 15:59 23:59 07:59 Intake Total 650 / 650 Output Total 72 / 782 135 / 135 Balance -72 / 435 515 / 515 Intake: Intake, Total IV Amount 650 / 650 Lactated Ringers 1000ML 1,000 600 / 600 ml @ 100 mls/hr IV .Q10H [facility] Rx #:[id number] Pipercillin/Tazo 3.375 gm In 0. 50 / 50 9 % Sodium Chloride 50 ml @ 100 mls/hr IV Q8H [facility] Rx#:[id number] Output: Output, Urine Amount 0 / 0 0 / 0 Output, Drainage Amount 72 / 132 135 / 135 Right Abdomen 72 / 132 135 / 135 Other: Number of Voids 2 Number of Unmeasured Voids 1 1 Number of Bowel Movements 1 Weight 58.967 kg Patient Weight 10/02/24 23:59 Weight 58.967 kg Laboratory Results - last 24 hr 10/01/24 06:55: Sodium 136, Potassium 3.5, Chloride 103, Carbon Dioxide 29, Anion Gap 7.5, BUN 26 H D, Creatinine 0.70, Estimated Creat Clear 46, Estimated GFR 82, Est GFR ( Amer) 99, Glucose 140 H D, Calcium 7.6 L, Magnesium 2.2 D, Total Bilirubin 0.4, AST 30, ALT 21, Alkaline Phosphatase 104, Total Protein 5.0 L, Albumin 2.4 L, Globulin 2.6, Albumin/Globulin Ratio 0.9 L, Procalcitonin 2.42 H 10/02/24 04:03: WBC 18.8 H D, RBC 3.84 L, Hgb 11.4 L, Hct 34.1 L, MCV 88.8, MCH 29.7, MCHC 33.4, RDW 13.5, Plt Count 311, MPV 10.5 H, Neut % (Auto) 73.7, Lymph % (Auto) 12.8, [place] % (Auto) 8.5, Eos % (Auto) 0.6, Baso % (Auto) 0.4, Neut # (Auto) 13.9 H, Lymph # (Auto) 2.4, [place] # (Auto) 1.6 H, Eos # (Auto) 0.1, Baso # (Auto) 0.1, Total Counted 100, Neutrophils % (Manual) 79 H, Lymphocytes % (Manual) 14, Monocytes % (Manual) 7, Platelet Estimate Normal, RBC Morphology Normal, Sodium 140, Potassium 3.2 L, Chloride 103, Carbon Dioxide 31 H, Anion Gap 9.2, BUN 29 H, Creatinine 0.80, Estimated Creat Clear 46, Estimated GFR 70, Est GFR ( Amer) 85, Glucose 109 H D, Calcium 8.0 L, Magnesium 1.9 D, Total Bilirubin 0.6, AST 30, ALT 21, Alkaline Phosphatase 118, Total Protein 5.2 L, Albumin 2.6 L, Globulin 2.6, Albumin/Globulin Ratio 1.0 L I & O for Labs for Last 24 Hours: Intake & Output 09/29/24 09/30/24 10/01/24 10/02/24 23:59 23:59 23:59 23:59 Intake Total 2190 / 2190 1125 / 1692 567 / 1217 650 / 650 Output Total 70 / 70 660 / 1310 722 / 782 135 / 135 Balance 2119 / 2119 465 / 382 -155 / 435 515 / 515 Weight 54.431 kg 53.8 kg 58.967 kg 58.967 kg Constitutional: Present no acute distress Respiratory: Present normal respiratory effort; Absent rhonchi, wheezes or crackles Cardiac: Present Reg Rate and Rhythm GI: Present soft, tenderness (Mild discomfort around surgical incisions) and normal bowel sounds; Absent distention Comments:: RADHA with serous drainage Extremities: Present normal inspection and full ROM Skin: Present intact; Absent erythema Neuro: Present Grossly Intact and moves all extremities Assessment and Plan *Assessment and plan (1) Gastric perforation: Status: Acute Category: Medical Code(s): K25.5 - Chronic or unspecified gastric ulcer with perforation (2) Elevated brain natriuretic peptide (BNP) level: Status: Acute Category: Medical Code(s): R79.89 - Other specified abnormal findings of blood chemistry (3) Elevated troponin I level: Status: Acute Category: Medical Code(s): R79.89 - Other specified abnormal findings of blood chemistry (4) Hypertension: Status: Chronic Qualifiers: Hypertension type: primary hypertension Qualified Code(s): I10 - Essential (primary) hypertension Category: Medical Code(s): I10 - Essential (primary) hypertension (5) Hyperlipidemia: Status: Chronic Qualifiers: Hyperlipidemia type: mixed hyperlipidemia Qualified Code(s): E78.2 - Mixed hyperlipidemia Category: Medical Code(s): E78.5 - Hyperlipidemia, unspecified (6) Arthralgia: Status: Acute Qualifiers: Joint pain location: other joint Qualified Code(s): M25.59 - Pain in other specified joint Category: Medical Code(s): M25.50 - Pain in unspecified joint Plan Ms. Clements presented with one week of escalating gastrointestinal symptoms and imaging suspicious for free air in the abdomen. Labs demonstrated leukocytosis (WBC 16.2 K/?L), elevated procalcitonin (3.83 ng/mL), and electrolyte abnormalities (hypokalemia and hypomagnesemia). Initial management included IV fluids given concern for potential sepsis due to tachycardia and elevated procalcitonin, alongside antiemetics and analgesics. CT imaging confirmed likely gastric/duodenal perforation, and General Surgery was consulted for urgent intervention. Intraoperatively, a large anterior duodenal perforation near the pyloric channel with well-established peritonitis was identified and addressed. Patient doing well today. Will advance diet to clears. Continues to require inpatient management. Having bowel movements. Problems addressed as follows: Anterior Duodenal Perforation Abdominal pain Nausea and vomiting - Found to have abrasion in stomach. Closed in the OR 09/29/2024. NG out today. Discussed case with surgery, continue antibiotics for now. Cautiously advance diet to clear liquids. - Continue Zosyn 3.375 g every 8 hours - Continue pain control with morphine 4 mg IV every 4 hours as needed with 2 mg every 4 hours for additional breakthrough. Monitor for toxicity. - Continue pantoprazole 40 mg IV twice daily. Monitoring for improvement in bowel function prior to advancing diet. -Slight bump in white count today to 18.8. Patient remains afebrile however. Hemoglobin stable at 11.4. Repeat CBC, CMP, magnesium ordered for the morning. -Nausea and vomiting resolved. Zofran as needed every 8 hours Electrolyte Abnormalities (Hypokalemia, Hypomagnesemia) -Kidney function stable with BUN 29, creatinine 0.8, potassium 3.2, magnesium 1.9; Replacing per protocol. Full code VTE prophylaxis with SCDs Pantoprazole as above
[2024-10-02 08:00] VITALS: BP 117/80; PULSE 98; RESP 18; TEMP 36.7; O2SAT 94
[2024-10-02] MEDS: PANTOPRAZOLE 40MG VIAL 40 MG IV ×2 (08:33→20:53)
--- NOTE | 2024-10-02 08:57 | EXP.SURG.PN ---
Subjective Narrative: Patient feels quite well. No complaints. Some loose stools. Gastrografin upper GI per NG tube yesterday revealed no obstruction or leak and therefore nasogastric tube removed. No nausea. Exam Data for Last 24 hours Vital signs and Labs for Last 24 Hours: Temp Pulse Resp BP Pulse Ox O2 Del Method 98.1 F 98 H 18 117/80 94 L Room Air 10/02/24 08:00 10/02/24 08:00 10/02/24 08:00 10/02/24 08:00 10/02/24 08:00 10/02/24 08:00 Laboratory Results - last 24 hr 10/01/24 06:55: Procalcitonin 2.42 H 10/02/24 04:03: WBC 18.8 H D, RBC 3.84 L, Hgb 11.4 L, Hct 34.1 L, MCV 88.8, MCH 29.7, MCHC 33.4, RDW 13.5, Plt Count 311, MPV 10.5 H, Neut % (Auto) 73.7, Lymph % (Auto) 12.8, [place] % (Auto) 8.5, Eos % (Auto) 0.6, Baso % (Auto) 0.4, Neut # (Auto) 13.9 H, Lymph # (Auto) 2.4, [place] # (Auto) 1.6 H, Eos # (Auto) 0.1, Baso # (Auto) 0.1, Total Counted 100, Neutrophils % (Manual) 79 H, Lymphocytes % (Manual) 14, Monocytes % (Manual) 7, Platelet Estimate Normal, RBC Morphology Normal, Sodium 140, Potassium 3.2 L, Chloride 103, Carbon Dioxide 31 H, Anion Gap 9.2, BUN 29 H, Creatinine 0.80, Estimated Creat Clear 46, Estimated GFR 70, Est GFR ( Amer) 85, Glucose 109 H D, Calcium 8.0 L, Magnesium 1.9 D, Total Bilirubin 0.6, AST 30, ALT 21, Alkaline Phosphatase 118, Total Protein 5.2 L, Albumin 2.6 L, Globulin 2.6, Albumin/Globulin Ratio 1.0 L I & O for Last 24 hours: Intake & Output 09/29/24 09/30/24 10/01/24 10/02/24 11:59 11:59 11:59 11:59 Intake Total 3315 / 3315 567 / 567 650 / 650 Output Total 580 / 580 800 / 800 207 / 207 Balance 2735 / 2735 -233 / -233 443 / 443 Weight 118 lb 9.739 oz 130 lb 130 lb *Routine Abdominal Exam Abdominal: Present distended Comments: Incision clean and intact. RADHA output serous Progress Note: A&P Assessment and plan (1) Gastric perforation: Status: Acute Assessment and plan: Monitor white blood cell count. I will give limited clear liquids at this time. Likely does have somewhat of an ileus resolving with abdominal distention. Reassuring that RADHA drain is merely serous. (2) Elevated brain natriuretic peptide (BNP) level: Status: Acute (3) Elevated troponin I level: Status: Acute (4) Hypertension: Status: Chronic (5) Hyperlipidemia: Status: Chronic (6) Arthralgia: Status: Acute
[2024-10-02] MEDS: KCl 10mEq/100ml 100 ML 100 MEQ IV ×4 (09:47→16:38)
--- NOTE | 2024-10-02 11:06 | P.PN_ITS ---
Subjective *Date: 10/02/24 *Time: 11:06 Medical Exam Vital signs and Labs for Last 24 Hours: Vital Signs Temp Pulse Resp BP Pulse Ox O2 Del Method 10/02/24 09:00 Room Air 10/02/24 08:00 Room Air 10/02/24 08:00 98.1 F 98 H 18 117/80 94 L Room Air 10/02/24 07:00 Room Air 10/02/24 05:00 Room Air 10/02/24 03:59 98.3 F 125 H 16 137/77 96 Room Air 10/02/24 03:00 Room Air 10/02/24 01:00 Room Air 10/01/24 23:37 98.1 F 113 H 16 129/79 95 Room Air 10/01/24 23:00 Room Air 10/01/24 21:00 Room Air 10/01/24 20:00 Room Air 10/01/24 19:40 98.2 F 116 H 18 155/72 H 96 Room Air 10/01/24 18:36 Room Air 10/01/24 17:00 Room Air 10/01/24 16:00 98.4 F 114 H 18 130/76 96 Room Air 10/01/24 14:44 Room Air 10/01/24 13:00 Room Air 10/01/24 11:54 97.8 F 118 H 18 147/76 H 95 Room Air Intake and Output 10/01/24 10/02/24 10/02/24 23:59 07:59 15:59 Intake Total 650 / 650 Output Total 72 / 782 135 / 135 0 / 135 Balance -72 / 435 515 / 515 0 / 515 Intake: Intake, Total IV Amount 650 / 650 Lactated Ringers 1000ML 1,000 600 / 600 ml @ 100 mls/hr IV .Q10H [facility] Rx #:[id number] Pipercillin/Tazo 3.375 gm In 0. 50 / 50 9 % Sodium Chloride 50 ml @ 100 mls/hr IV Q8H [facility] Rx#:[id number] Output: Output, Urine Amount 0 / 0 0 / 0 0 / 0 Output, Drainage Amount 72 / 132 135 / 135 Right Abdomen 72 / 132 135 / 135 Other: Number of Voids 2 Number of Unmeasured Voids 1 1 Number of Bowel Movements 1 Weight 58.967 kg Patient Weight 10/02/24 23:59 Weight 58.967 kg Laboratory Results - last 24 hr 10/02/24 04:03: WBC 18.8 H D, RBC 3.84 L, Hgb 11.4 L, Hct 34.1 L, MCV 88.8, MCH 29.7, MCHC 33.4, RDW 13.5, Plt Count 311, MPV 10.5 H, Neut % (Auto) 73.7, Lymph % (Auto) 12.8, [place] % (Auto) 8.5, Eos % (Auto) 0.6, Baso % (Auto) 0.4, Neut # (Auto) 13.9 H, Lymph # (Auto) 2.4, [place] # (Auto) 1.6 H, Eos # (Auto) 0.1, Baso # (Auto) 0.1, Total Counted 100, Neutrophils % (Manual) 79 H, Lymphocytes % (Manual) 14, Monocytes % (Manual) 7, Platelet Estimate Normal, RBC Morphology Normal, Sodium 140, Potassium 3.2 L, Chloride 103, Carbon Dioxide 31 H, Anion Gap 9.2, BUN 29 H, Creatinine 0.80, Estimated Creat Clear 46, Estimated GFR 70, Est GFR ( Amer) 85, Glucose 109 H D, Calcium 8.0 L, Magnesium 1.9 D, Total Bilirubin 0.6, AST 30, ALT 21, Alkaline Phosphatase 118, Total Protein 5.2 L, Albumin 2.6 L, Globulin 2.6, Albumin/Globulin Ratio 1.0 L I & O for Labs for Last 24 Hours: Intake & Output 09/29/24 09/30/24 10/01/24 10/02/24 23:59 23:59 23:59 23:59 Intake Total 2190 / 2190 1125 / 1692 567 / 1217 650 / 650 Output Total 70 / 70 660 / 1310 722 / 782 135 / 135 Balance 2119 / 2119 465 / 382 -155 / 435 515 / 515 Weight 54.431 kg 53.8 kg 58.967 kg 58.967 kg The patient's infection will respond to the chosen ABx?: Yes Is the patient receiving the right drug, dose, and route?: Yes Could a more targeted ABx be ordered?: No (WBC UP TO 18.8K, AFEBRILE, CONTINUE CURRENT ABX.)
[2024-10-02 12:00] VITALS: BP 122/67; PULSE 96; RESP 18; TEMP 36.6; O2SAT 97
--- NOTE | 2024-10-02 14:50 | PC.NURSE ---
Medicated for pain once this shift. has tolerated clears well today. ambulating in room with standby assist. family has been at bedside for duration of shift. aimee drain emptied once today.
[2024-10-02 16:00] VITALS: BP 127/82; PULSE 116; RESP 16; TEMP 36.4; O2SAT 94
[2024-10-02] MEDS: MAGNESIUM SULFATE IN WATER 2 GM/50 ML PIGGYBACK IV (18:27)
[2024-10-02 19:39] VITALS: BP 136/74; PULSE 118; RESP 18; TEMP 36.8; O2SAT 93
[2024-10-02] MEDS: SODIUM CHLORIDE 0.9% 10ML VIAL 10 ML IV (20:53)
[2024-10-03] VITALS: BP 144/78; PULSE 108; RESP 18; TEMP 36.8; O2SAT 93
[2024-10-03] MEDS: ONDANSETRON 4MG/2ML VIAL 4 MG IV (01:03)
[2024-10-03] MEDS: MORPHINE 4MG/ML SYRINGE 4 MG IV ×2 (01:03→14:21)
[2024-10-03] MEDS: DEXTROSE 5%-LACTATED RINGERS 1,000 ML 75 ML IV (03:46)
[2024-10-03] MEDS: PIPERCILLIN/TAZO 3.375 GM in 0.9 % SODIUM CHLORIDE 50 ML IV ×3 (03:47→19:53)
[2024-10-03 04:00] VITALS: BP 138/71; PULSE 92; RESP 16; TEMP 36.8; O2SAT 97; BMI 19.3
[2024-10-03] MEDS: MORPHINE 2MG/ML SYRINGE 2 MG IV ×4 (05:02→23:02)
--- NOTE | 2024-10-03 05:45 | PC.NURSE ---
Pt. alert and orientated x 4. While pt. was sleeping room air O2 sats down to 88%. Pt. placed on 2L o2 per NC Pt. medicated 3 times overnight for pain and one time for nausea. Pt. has RADHA drain to RUQ abdomen draining serous output. Mid line upper abd. incision with lul intact. Pt. up in room ambulates to bathroom and bed, sitting in chair. moving around. VSS, Personal items and call bunn in reach.
[2024-10-03 07:50] VITALS: BP 141/90; PULSE 106; RESP 17; TEMP 36.7; O2SAT 91
[2024-10-03] MEDS: PANTOPRAZOLE 40MG VIAL 40 MG IV ×2 (07:54→20:22)
[2024-10-03] MEDS: FUROSEMIDE 40MG/4ML VIAL 40 MG IV (07:55)
[2024-10-03 08:30] LABS: Basophils # 0.1 K/mm3 (0-0.2); Basophils % 0.4 % (0.1-2.0); Eosinophils # 0.2 K/mm3 (0.0-0.4); Eosinophils % 1.2 % (0.1-12.0); Hematocrit 30.3 % (37.0-47.0); Lymphocytes # 2.3 K/mm3 (0.7-4.5); Lymphocytes % 13.2 % (10-50); Mean Corpuscular Hemoglobin 29.6 pg (27.0-31.2); Mean Corpuscular Volume 89.6 fl (81-99); Mean Platelet Volume 10.3 fl (7.4-10.4); Monocytes # 1.5 K/mm3 (0.1-1.0); Monocytes % 8.6 % (1.7-9.3); Neutrophils % 74.2 % (37.0-80.0); Platelet Count 305 K/mm3 (142-424); Red Blood Count 3.38 M/mm3 (4.20-5.40); Red Cell Distribution Width 13.7 % (11.5-17.5); White Blood Count 17.6 K/mm3 (4.8-10.8)
[2024-10-03 08:35] LABS: MANUAL DIFFERENTIAL MANUAL DIFFERENTIAL (MANUAL DIFF)
[2024-10-03 08:46] LABS: Albumin Level 2.1 g/dl (3.5-5.0); Chloride 100 mmol/L (98-107); Sodium 136 mmol/L (136-145)
[2024-10-03 08:47] LABS: Potassium 3.3 mmoL/L (3.5-5.1)
[2024-10-03 08:49] LABS: Alanine Aminotransferase 17 U/L (12-78); Albumin/Globulin Ratio 0.8 (1.1-1.8); Alkaline Phosphatase 104 U/L (38-126); Anion Gap 9.3 mEq/L (5-15); Aspartate Amino Transferase 29 U/L (14-36); Bilirubin,Total 0.5 mg/dl (0.2-1.3); Blood Urea Nitrogen 20 mg/dl (7-17); Calcium 7.4 mg/dl (8.4-10.2); Carbon Dioxide 30 mmol/L (22.0-30.0); Creatinine Clearance Estimated 42 mL/min (50-200); Estimated Glomerular Filt Rate 98 ml/min (>60); GFR (African American) 118 ML/MIN (>60); Globulin 2.5 g/dL (1.3-3.2); Glucose 103 mg/dl (74-100); Magnesium 1.9 mg/dl (1.6-2.3); Total Protein,Serum 4.6 g/dl (6.3-8.2)
[2024-10-03 09:16] LABS: Procalcitonin 0.877 ng/mL (0.0-2.0)
--- NOTE | 2024-10-03 09:27 | P.PN_ITS ---
Subjective Patient reports: no new complaints Narrative: Patient doing well. Tolerating clear liquid diet. Voiding. Having some loose bowel movements. Exam Data for Last 24 hours Vital signs and Labs for Last 24 Hours: Temp Pulse Resp BP Pulse Ox O2 Del Method O2 Flow Rate 98.1 F 106 H 17 141/90 H 91 L Room Air 2 10/03/24 07:50 10/03/24 07:50 10/03/24 07:50 10/03/24 07:50 10/03/24 07:50 10/03/24 09:00 10/03/24 04:00 Laboratory Results - last 24 hr 10/03/24 06:18: WBC 17.6 H, RBC 3.38 L, Hgb 10.0 L, Hct 30.3 L, MCV 89.6, MCH 29.6, MCHC 33.0, RDW 13.7, Plt Count 305, MPV 10.3, Neut % (Auto) 74.2, Lymph % (Auto) 13.2, [place] % (Auto) 8.6, Eos % (Auto) 1.2, Baso % (Auto) 0.4, Neut # (Auto) 13.0 H, Lymph # (Auto) 2.3, [place] # (Auto) 1.5 H, Eos # (Auto) 0.2, Baso # (Auto) 0.1, Sodium 136, Potassium 3.3 L, Chloride 100, Carbon Dioxide 30, Anion Gap 9.3, BUN 20 H D, Creatinine 0.60 D, Estimated Creat Clear 42, Estimated GFR 98, Est GFR ( Amer) 118 D, Glucose 103 H, Calcium 7.4 L, Magnesium 1.9, Total Bilirubin 0.5, AST 29, ALT 17, Alkaline Phosphatase 104, Total Protein 4.6 L, Albumin 2.1 L D, Globulin 2.5, Albumin/Globulin Ratio 0.8 L, Procalcitonin 0.877 I & O for Last 24 hours: Intake & Output 09/30/24 10/01/24 10/02/24 10/03/24 11:59 11:59 11:59 11:59 Intake Total 3315 / 3315 567 / 567 650 / 650 1680 / 1680 Output Total 580 / 580 800 / 800 277 / 277 280 / 280 Balance 2735 / 2735 -233 / -233 373 / 373 1400 / 1400 Weight 118 lb 9.739 oz 130 lb 130 lb 120 lb *Routine Abdominal Exam Comments: Somewhat distended. Incision clean. Drain with serous output. Progress Note: A&P Assessment and plan (1) Gastric perforation: Status: Acute Assessment and plan: Continue to limit to clear liquid diet for now. Monitor white blood cell count. Continue antibiotics and proton pump inhibitors. Ambulate. (2) Elevated brain natriuretic peptide (BNP) level: Status: Acute (3) Elevated troponin I level: Status: Acute (4) Hypertension: Status: Chronic (5) Hyperlipidemia: Status: Chronic (6) Arthralgia: Status: Acute
[2024-10-03 09:28] LABS: Lymphocytes % 16 % (10-50); Monocytes % 7 % (2-9); Neutrophils % 77 % (42-76); Platelet Estimate Normal; RBC Morphology Normal; Total Cells Counted 100
--- NOTE | 2024-10-03 10:13 | EXP.ACUTE.PN ---
Subjective *Date: 10/03/24 *Time: 14:55 Interval history: Denies any significant abdominal pain, to be sure this morning. Feeling somewhat better. Having increased serous drainage from RADHA. Still having loose stools. No nausea or vomiting. No shortness of breath or chest pain. Afebrile. Tolerating clear Medical Exam Vital signs and Labs for Last 24 Hours: Vital Signs Temp Pulse Resp BP Pulse Ox O2 Del Method O2 Flow Rate 10/03/24 09:00 Room Air 10/03/24 08:00 Room Air 10/03/24 07:50 98.1 F 106 H 17 141/90 H 91 L Room Air 10/03/24 06:53 Room Air 10/03/24 05:00 Room Air 10/03/24 04:00 98.2 F 92 H 16 138/71 97 Nasal Cannula 2 10/03/24 03:00 Nasal Cannula 2 10/03/24 01:00 Nasal Cannula 2 10/03/24 00:00 98.2 F 108 H 18 144/78 H 93 L Nasal Cannula 10/02/24 23:00 Room Air 10/02/24 21:00 Room Air 10/02/24 20:00 Room Air 10/02/24 19:39 98.3 F 118 H 18 136/74 93 L Room Air 10/02/24 18:57 Room Air 10/02/24 17:00 Room Air 10/02/24 16:00 97.6 F 116 H 16 127/82 94 L Room Air 10/02/24 15:00 Room Air 10/02/24 13:00 Room Air 10/02/24 12:00 97.8 F 96 H 18 122/67 97 Room Air 10/02/24 11:00 Room Air Intake and Output 10/02/24 10/03/24 10/03/24 23:59 07:59 15:59 Intake Total 500 / 1850 700 / 1180 480 / 1180 Output Total 40 / 325 170 / 320 150 / 320 Balance 460 / 1525 530 / 860 330 / 860 Intake: Intake, Oral Amount 500 / 500 480 / 480 Intake, Total IV Amount 700 / 700 Lactated Ringers 1000ML 1,000 650 / 650 ml @ 100 mls/hr IV .Q10H [facility] Rx #:[id number] Pipercillin/Tazo 3.375 gm In 0. 50 / 50 9 % Sodium Chloride 50 ml @ 100 mls/hr IV Q8H [facility] Rx#:[id number] Output: Output, Urine Amount 0 / 0 0 / 0 Output, Drainage Amount 40 / 325 170 / 320 150 / 320 Right Abdomen 40 / 325 170 / 320 150 / 320 Other: Number of Voids 2 Number of Unmeasured Voids 1 1 Number of Bowel Movements 1 Weight 54.431 kg Patient Weight 10/03/24 23:59 Weight 54.431 kg Laboratory Results - last 24 hr 10/03/24 06:18: WBC 17.6 H, RBC 3.38 L, Hgb 10.0 L, Hct 30.3 L, MCV 89.6, MCH 29.6, MCHC 33.0, RDW 13.7, Plt Count 305, MPV 10.3, Neut % (Auto) 74.2, Lymph % (Auto) 13.2, [place] % (Auto) 8.6, Eos % (Auto) 1.2, Baso % (Auto) 0.4, Neut # (Auto) 13.0 H, Lymph # (Auto) 2.3, [place] # (Auto) 1.5 H, Eos # (Auto) 0.2, Baso # (Auto) 0.1, Total Counted 100, Neutrophils % (Manual) 77 H, Lymphocytes % (Manual) 16, Monocytes % (Manual) 7, Platelet Estimate Normal, RBC Morphology Normal, Sodium 136, Potassium 3.3 L, Chloride 100, Carbon Dioxide 30, Anion Gap 9.3, BUN 20 H D, Creatinine 0.60 D, Estimated Creat Clear 42, Estimated GFR 98, Est GFR ( Amer) 118 D, Glucose 103 H, Calcium 7.4 L, Magnesium 1.9, Total Bilirubin 0.5, AST 29, ALT 17, Alkaline Phosphatase 104, Total Protein 4.6 L, Albumin 2.1 L D, Globulin 2.5, Albumin/Globulin Ratio 0.8 L, Procalcitonin 0.877 I & O for Labs for Last 24 Hours: Intake & Output 09/30/24 10/01/24 10/02/24 10/03/24 23:59 23:59 23:59 23:59 Intake Total 1125 / 1692 567 / 1217 1150 / 1850 1180 / 1180 Output Total 660 / 1310 722 / 782 245 / 325 320 / 320 Balance 465 / 382 -155 / 435 905 / 1525 860 / 860 Weight 53.8 kg 58.967 kg 58.967 kg 54.431 kg Constitutional: Present no acute distress Head: Present atraumatic and normocephalic Respiratory: Present normal respiratory effort; Absent rhonchi, wheezes or crackles Cardiac: Present Reg Rate and Rhythm GI: Present soft, tenderness (Mild discomfort around surgical incisions) and normal bowel sounds; Absent distention Comments:: RADHA with serous drainage Extremities: Present normal inspection and full ROM Skin: Present intact; Absent erythema Neuro: Present Grossly Intact and moves all extremities Assessment and Plan *Assessment and plan (1) Gastric perforation: Status: Acute Category: Medical Code(s): K25.5 - Chronic or unspecified gastric ulcer with perforation (2) Elevated brain natriuretic peptide (BNP) level: Status: Acute Category: Medical Code(s): R79.89 - Other specified abnormal findings of blood chemistry (3) Elevated troponin I level: Status: Acute Category: Medical Code(s): R79.89 - Other specified abnormal findings of blood chemistry (4) Hypertension: Status: Chronic Qualifiers: Hypertension type: primary hypertension Qualified Code(s): I10 - Essential (primary) hypertension Category: Medical Code(s): I10 - Essential (primary) hypertension (5) Hyperlipidemia: Status: Chronic Qualifiers: Hyperlipidemia type: mixed hyperlipidemia Qualified Code(s): E78.2 - Mixed hyperlipidemia Category: Medical Code(s): E78.5 - Hyperlipidemia, unspecified (6) Arthralgia: Status: Acute Qualifiers: Joint pain location: other joint Qualified Code(s): M25.59 - Pain in other specified joint Category: Medical Code(s): M25.50 - Pain in unspecified joint Plan Ms. Clements presented with one week of escalating gastrointestinal symptoms and imaging suspicious for free air in the abdomen. Labs demonstrated leukocytosis (WBC 16.2 K/?L), elevated procalcitonin (3.83 ng/mL), and electrolyte abnormalities (hypokalemia and hypomagnesemia). Initial management included IV fluids given concern for potential sepsis due to tachycardia and elevated procalcitonin, alongside antiemetics and analgesics. CT imaging confirmed likely gastric/duodenal perforation, and General Surgery was consulted for urgent intervention. Intraoperatively, a large anterior duodenal perforation near the pyloric channel with well-established peritonitis was identified and addressed. Patient doing well today. Continue clear liquid diet. Continues to require in-patient management. Continue with clears today, will advance to full's tomorrow if continues to tolerate. Having bowel movements. Problems addressed as follows: Anterior Duodenal Perforation Abdominal pain Nausea and vomiting - Found to have abrasion in stomach. Closed in the OR 09/29/2024. Discussed case with surgery, will hold on advancing diet today. Continue antibiotics for the time being. Monitoring RADHA output. - Continue Zosyn 3.375 g every 8 hours - Continue pain control with morphine, decrease to 2 mg every 4 hours as needed for breakthrough pain. Pain improving. Monitoring for toxicity. - Continue pantoprazole 40 mg IV twice daily. Monitoring for improvement in bowel function prior to advancing diet. -White count with no significant change today at 17, afebrile. Hemoglobin 10. Repeat CBC, CMP, magnesium ordered for the morning. -Nausea and vomiting resolved. Zofran as needed every 8 hours Electrolyte Abnormalities (Hypokalemia, Hypomagnesemia) -Kidney function stable with BUN 20, creatinine 0.6. Potassium 3.3, will replace orally with liquid today. Magnesium stable at 1.9. Full code VTE prophylaxis with SCDs Pantoprazole as above
[2024-10-03] MEDS: POTASSIUM CHLORIDE 20MEQ/15ML UDC 40 MEQ PO ×2 (10:58→20:22)
[2024-10-03 11:50] VITALS: BP 154/83; PULSE 105; RESP 17; TEMP 36.5; O2SAT 94
--- NOTE | 2024-10-03 15:26 | PC.NURSE ---
AOX4, SHE HAS NOT REQUIRED O2 SUPPORT TODAY. HAS TOLERATED DIET TODAY. RADHA DRAIN EMPTIED X2. MEDICATED PER MAR WITH PRN PAIN MEDICATION. IS HOURLY. PT AMBULATING TO RESTROOM.
[2024-10-03 16:00] VITALS: BP 134/76; PULSE 109; RESP 18; TEMP 36.8; O2SAT 90
[2024-10-03 20:00] VITALS: BP 134/75; PULSE 109; RESP 16; TEMP 36.9; O2SAT 95
[2024-10-03] MEDS: SODIUM CHLORIDE 0.9% 10ML VIAL 10 ML IV (20:22)
[2024-10-04] VITALS: BP 133/81; PULSE 110; RESP 18; TEMP 37.1; O2SAT 93
[2024-10-04] MEDS: MORPHINE 2MG/ML SYRINGE 2 MG IV ×2 (03:01→08:39)
[2024-10-04] MEDS: PIPERCILLIN/TAZO 3.375 GM in 0.9 % SODIUM CHLORIDE 50 ML IV ×3 (03:14→19:58)
[2024-10-04 04:00] VITALS: BP 126/69; PULSE 97; RESP 16; TEMP 36.9; O2SAT 98; BMI 19.3
--- NOTE | 2024-10-04 04:39 | PC.NURSE ---
Pt. is alert and orientated x 4. Pt. c/o of abdominal and epigastric pain. Pt. has a Mid line upper abdominal incision with lul intact. RUQ RADHA drain with serrous output. Pt, up to bathroom with assistance and sitting in chair as tolerated. Pt. needing MS about every 4 hours for pain. MS less effective on the pain. Pt. on clear liquids tolerating well. IV antibiotics continued. VSS. Personal items and call bunn in reach.
[2024-10-04 07:30] LABS: Basophils # 0.1 K/mm3 (0-0.2); Basophils % 0.4 % (0.1-2.0); Eosinophils # 0.2 K/mm3 (0.0-0.4); Eosinophils % 0.8 % (0.1-12.0); Hematocrit 31.1 % (37.0-47.0); Hemoglobin 10.3 g/dL (12.2-16.2); Lymphocytes # 2.3 K/mm3 (0.7-4.5); Lymphocytes % 9.2 % (10-50); Mean Corpuscular HGB Conc 33.1 g/dL (31.8-35.4); Mean Corpuscular Hemoglobin 29.2 pg (27.0-31.2); Mean Corpuscular Volume 88.1 fl (81-99); Mean Platelet Volume 10.1 fl (7.4-10.4); Monocytes % 8.1 % (1.7-9.3); Neutrophils # 19.4 K/mm3 (1.8-7.8); Neutrophils % 78.4 % (37.0-80.0); Platelet Count 369 K/mm3 (142-424); Red Blood Count 3.53 M/mm3 (4.20-5.40); Red Cell Distribution Width 13.8 % (11.5-17.5); White Blood Count 24.8 K/mm3 (4.8-10.8)
[2024-10-04 07:52] LABS: MANUAL DIFFERENTIAL MANUAL DIFFERENTIAL (MANUAL DIFF)
[2024-10-04 07:54] LABS: Albumin Level 2.2 g/dl (3.5-5.0); Chloride 97 mmol/L (98-107); Sodium 133 mmol/L (136-145)
[2024-10-04 07:57] LABS: Alanine Aminotransferase 18 U/L (12-78); Albumin/Globulin Ratio 0.8 (1.1-1.8); Alkaline Phosphatase 114 U/L (38-126); Aspartate Amino Transferase 32 U/L (14-36); Bilirubin,Total 0.7 mg/dl (0.2-1.3); Blood Urea Nitrogen 16 mg/dl (7-17); Calcium 7.8 mg/dl (8.4-10.2); Carbon Dioxide 32 mmol/L (22.0-30.0); Creatinine Clearance Estimated 42 mL/min (50-200); Estimated Glomerular Filt Rate 82 ml/min (>60); GFR (African American) 99 ML/MIN (>60); Globulin 2.6 g/dL (1.3-3.2); Glucose 90 mg/dl (74-100); Magnesium 1.7 mg/dl (1.6-2.3); Total Protein,Serum 4.8 g/dl (6.3-8.2)
[2024-10-04 08:00] VITALS: BP 140/75; PULSE 95; RESP 18; TEMP 36.6; O2SAT 99
[2024-10-04 08:03] VITALS: BMI 19.3
[2024-10-04 08:23] LABS: Lymphocytes % 10 % (10-50); Monocytes % 3 % (2-9); Neutrophils % 87 % (42-76); Total Cells Counted 100
[2024-10-04 08:24] LABS: Platelet Estimate Normal; RBC Morphology Normal
[2024-10-04] MEDS: PANTOPRAZOLE 40MG VIAL 40 MG IV ×2 (08:39→20:03)
[2024-10-04] MEDS: POTASSIUM CHLORIDE 20MEQ/15ML UDC 40 MEQ PO ×2 (08:40→20:04)
[2024-10-04] MEDS: OXYCODONE 5MG IMMEDIATE RELEASE TABLET 5 MG PO ×3 (11:49→21:24)
[2024-10-04 11:50] VITALS: BP 140/78; PULSE 88; RESP 18; TEMP 37.1; O2SAT 97
[2024-10-04] MEDS: MAGNESIUM SULFATE IN WATER 2 GM/50 ML PIGGYBACK IV ×2 (12:27→13:17)
--- NOTE | 2024-10-04 12:56 | P.PN_ITS ---
Subjective *Date: 10/04/24 *Time: 12:56 Interval history: Denies any significant pain upper abdomen. No fever. No nausea or vomiting. Still having loose stools. Denies chest pain or shortness of breath. Stable on room air. Decreasing drainage from RADHA Medical Exam Vital signs and Labs for Last 24 Hours: Vital Signs Temp Pulse Resp BP Pulse Ox O2 Del Method O2 Flow Rate 10/04/24 11:50 98.7 F 88 18 140/78 97 Room Air 10/04/24 08:00 97.8 F 95 H 18 140/75 99 Nasal Cannula 2 10/04/24 07:00 Nasal Cannula 2 10/04/24 05:00 Nasal Cannula 2 10/04/24 04:00 98.4 F 97 H 16 126/69 98 Nasal Cannula 2 10/04/24 03:00 Nasal Cannula 2 10/04/24 01:00 Nasal Cannula 2 10/04/24 00:00 98.8 F 110 H 18 133/81 93 L Nasal Cannula 2 10/03/24 23:00 Room Air 10/03/24 21:00 Room Air 10/03/24 20:00 Room Air 10/03/24 20:00 98.4 F 109 H 16 134/75 95 Room Air 10/03/24 16:00 98.3 F 109 H 18 134/76 90 L Room Air 10/03/24 13:00 Room Air Intake and Output 10/03/24 10/04/24 10/04/24 23:59 07:59 15:59 Intake Total 600 / 2310 50 / 50 Output Total 0 / 470 140 / 190 50 / 190 Balance 600 / 1840 -90 / -140 -50 / -140 Intake: Intake, Oral Amount 600 / 1560 Intake, Total IV Amount 50 / 50 Lactated Ringers 1000ML 1,000 0 / 0 ml @ 100 mls/hr IV .Q10H [facility] Rx #:[id number] Pipercillin/Tazo 3.375 gm In 0. 50 / 50 9 % Sodium Chloride 50 ml @ 100 mls/hr IV Q8H [facility] Rx#:[id number] Output: Output, Urine Amount 0 / 0 0 / 0 0 / 0 Output, Drainage Amount 140 / 190 50 / 190 Right Abdomen 140 / 190 50 / 190 Other: Number of Voids 2 Number of Unmeasured Voids 1 1 1 Number of Bowel Movements 1 1 Weight 54.439 kg 54.4 kg Patient Weight 10/04/24 23:59 Weight 54.4 kg Laboratory Results - last 24 hr 10/04/24 07:00: WBC 24.8 H* D, RBC 3.53 L, Hgb 10.3 L, Hct 31.1 L, MCV 88.1, MCH 29.2, MCHC 33.1, RDW 13.8, Plt Count 369, MPV 10.1, Neut % (Auto) 78.4, Lymph % (Auto) 9.2 L, [place] % (Auto) 8.1, Eos % (Auto) 0.8, Baso % (Auto) 0.4, Neut # (Auto) 19.4 H, Lymph # (Auto) 2.3, [place] # (Auto) 2.0 H, Eos # (Auto) 0.2, Baso # (Auto) 0.1, Total Counted 100, Neutrophils % (Manual) 87 H, Lymphocytes % (Manua l) 10, Monocytes % (Manual) 3, Platelet Estimate Normal, RBC Morphology Normal, Sodium 133 L, Potassium 4.0 D, Chloride 97 L, Carbon Dioxide 32 H, Anion Gap 8.0, BUN 16, Creatinine 0.70, Estimated Creat Clear 42, Estimated GFR 82, Est GFR ( Amer) 99, Glucose 90, Calcium 7.8 L, Magnesium 1.7 D, Total Bilirubin 0.7, AST 32, ALT 18, Alkaline Phosphatase 114, Total Protein 4.8 L, Albumin 2.2 L, Globulin 2.6, Albumin/Globulin Ratio 0.8 L I & O for Labs for Last 24 Hours: Intake & Output 10/01/24 10/02/24 10/03/24 10/04/24 23:59 23:59 23:59 23:59 Intake Total 567 / 1217 1150 / 1850 2260 / 2310 50 / 50 Output Total 722 / 782 245 / 325 390 / 470 190 / 190 Balance -155 / 435 905 / 1525 1870 / 1840 -140 / -140 Weight 58.967 kg 58.967 kg 54.431 kg 54.4 kg Constitutional: Present no acute distress Head: Present atraumatic and normocephalic Respiratory: Present normal respiratory effort; Absent rhonchi, wheezes or crackles Cardiac: Present Reg Rate and Rhythm GI: Present soft, tenderness (Minimal) and normal bowel sounds; Absent distention Comments:: RADHA with scant serous drainage Extremities: Present normal inspection and full ROM Skin: Present intact; Absent erythema Neuro: Present Grossly Intact and moves all extremities Assessment and Plan *Assessment and plan (1) Gastric perforation: Status: Acute Category: Medical Code(s): K25.5 - Chronic or unspecified gastric ulcer with perforation (2) Elevated brain natriuretic peptide (BNP) level: Status: Acute Category: Medical Code(s): R79.89 - Other specified abnormal findings of blood chemistry (3) Elevated troponin I level: Status: Acute Category: Medical Code(s): R79.89 - Other specified abnormal findings of blood chemistry (4) Hypertension: Status: Chronic Qualifiers: Hypertension type: primary hypertension Qualified Code(s): I10 - Essential (primary) hypertension Category: Medical Code(s): I10 - Essential (primary) hypertension (5) Hyperlipidemia: Status: Chronic Qualifiers: Hyperlipidemia type: mixed hyperlipidemia Qualified Code(s): E78.2 - Mixed hyperlipidemia Category: Medical Code(s): E78.5 - Hyperlipidemia, unspecified (6) Arthralgia: Status: Acute Qualifiers: Joint pain location: other joint Qualified Code(s): M25.59 - Pain in other specified joint Category: Medical Code(s): M25.50 - Pain in unspecified joint Plan Ms. Clements presented with one week of escalating gastrointestinal symptoms and imaging suspicious for free air in the abdomen. Labs demonstrated leukocytosis (WBC 16.2 K/?L), elevated procalcitonin (3.83 ng/mL), and electrolyte abnormalities (hypokalemia and hypomagnesemia). Initial management included IV fluids given concern for potential sepsis due to tachycardia and elevated procalcitonin, alongside antiemetics and analgesics. CT imaging confirmed likely gastric/duodenal perforation, and General Surgery was consulted for urgent intervention. Intraoperatively, a large anterior duodenal perforation near the pyloric channel with well-established peritonitis was identified and addressed. Patient doing well today. Continue clear liquid diet. Continues to require in- patient management. Continue with clears today, will advance to full's tomorrow if continues to tolerate. Having bowel movements. Problems addressed as follows: Anterior Duodenal Perforation Abdominal pain Nausea and vomiting - Found to have abrasion in stomach. Closed in the OR 09/29/2024. Discussed case with surgery, will hold on advancing diet today. Continue antibiotics for the time being. Monitoring RADHA output. - Continue Zosyn 3.375 g every 8 hours - Continue pain control, transition off IV pain medication to p.o. hydrocodone every 4-6 hours as needed for severe pain. Monitoring for toxicity. - Continue pantoprazole 40 mg IV twice daily. Monitoring for improvement in bowel function prior to advancing diet. -Advance to full liquid diet today. - White count with bump again today to 25. Patient remains afebrile. No focal sign of infection. Will consider CT in the next day or 2 if has any signs her white count continues to elevate to evaluate for possible intra-abdominal abscess. Hemoglobin 10. Repeat CBC, CMP, magnesium ordered for the morning. -Nausea and vomiting resolved. Zofran as needed every 8 hours Electrolyte Abnormalities (Hypokalemia, Hypomagnesemia) Kidney function stable with BUN 16, creatinine 0.7. Sodium 133. Potassium 4.0 with magnesium of 1.7. Full code VTE prophylaxis with SCDs Pantoprazole as above
[2024-10-04 16:00] VITALS: BP 130/71; PULSE 104; RESP 18; TEMP 37.2; O2SAT 93
--- NOTE | 2024-10-04 17:50 | PC.NURSE ---
Patient was switched to PO pain medication and patient states having better pain control than prior. Patient able to go more than 4 hrs between doses of medication.
--- NOTE | 2024-10-04 19:00 | EXP.SURG.PN ---
Subjective Narrative: Patient feels well with no complaints. Has been taking some full liquids today. White blood cell count elevated. Exam Data for Last 24 hours Vital signs and Labs for Last 24 Hours: Temp Pulse Resp BP Pulse Ox O2 Del Method O2 Flow Rate 98.9 F 104 H 18 130/71 93 L Room Air 2 10/04/24 16:00 10/04/24 16:00 10/04/24 16:00 10/04/24 16:00 10/04/24 16:00 10/04/24 16:00 10/04/24 08:00 Laboratory Results - last 24 hr 10/04/24 07:00: WBC 24.8 H* D, RBC 3.53 L, Hgb 10.3 L, Hct 31.1 L, MCV 88.1, MCH 29.2, MCHC 33.1, RDW 13.8, Plt Count 369, MPV 10.1, Neut % (Auto) 78.4, Lymph % (Auto) 9.2 L, [place] % (Auto) 8.1, Eos % (Auto) 0.8, Baso % (Auto) 0.4, Neut # (Auto) 19.4 H, Lymph # (Auto) 2.3, [place] # (Auto) 2.0 H, Eos # (Auto) 0.2, Baso # (Auto) 0.1, Total Counted 100, Neutrophils % (Manual) 87 H, Lymphocytes % (Manual) 10, Monocytes % (Manual) 3, Platelet Estimate Normal, RBC Morphology Normal, Sodium 133 L, Potassium 4.0 D, Chloride 97 L, Carbon Dioxide 32 H, Anion Gap 8.0, BUN 16, Creatinine 0.70, Estimated Creat Clear 42, Estimated GFR 82, Est GFR ( Amer) 99, Glucose 90, Calcium 7.8 L, Magnesium 1.7 D, Total Bilirubin 0.7, AST 32, ALT 18, Alkaline Phosphatase 114, Total Protein 4.8 L, Albumin 2.2 L, Globulin 2.6, Albumin/Globulin Ratio 0.8 L I & O for Last 24 hours: Intake & Output 10/02/24 10/03/24 10/04/24 10/05/24 11:59 11:59 11:59 11:59 Intake Total 650 / 650 1680 / 1680 1130 / 1130 240 / 240 Output Total 277 / 277 360 / 360 260 / 260 0 / 0 Balance 373 / 373 1320 / 1320 870 / 870 240 / 240 Weight 130 lb 120 lb 119 lb 14.903 oz *Routine Abdominal Exam Abdominal: Present soft Progress Note: A&P Assessment and plan (1) Gastric perforation: Status: Acute Assessment and plan: Patient doing well other than leukocytosis. Continue to watch today with continued antibiotics. RADHA drain reassuring with merely serous output. (2) Elevated brain natriuretic peptide (BNP) level: Status: Acute (3) Elevated troponin I level: Status: Acute (4) Hypertension: Status: Chronic (5) Hyperlipidemia: Status: Chronic (6) Arthralgia: Status: Acute
[2024-10-04 20:00] VITALS: BP 140/76; PULSE 112; RESP 18; TEMP 36.3; O2SAT 96
[2024-10-04] MEDS: SODIUM CHLORIDE 0.9% 10ML VIAL 10 ML IV (20:03)
[2024-10-05] VITALS: BP 134/66; PULSE 110; RESP 17; TEMP 36.3; O2SAT 96
[2024-10-05] MEDS: PIPERCILLIN/TAZO 3.375 GM in 0.9 % SODIUM CHLORIDE 50 ML IV (03:22)
[2024-10-05] MEDS: OXYCODONE 5MG IMMEDIATE RELEASE TABLET 5 MG PO ×4 (03:30→21:58)
[2024-10-05 04:00] VITALS: BP 134/71; PULSE 101; RESP 16; TEMP 37.1; O2SAT 91
--- NOTE | 2024-10-05 05:49 | PC.NURSE ---
Pt. is alert and orientated x 4. Pt. doing better. Pt. on room air, c/o abdominal pain around upper abd. mid line incision with lul, RUQ RADHA drain draining serrous fluid. Pt. was switched to PO pain medication and has much better pain control. Pt. sleeping at intervals. Pt. up and ambulates to bathroom and around room. Pt. alternates between the bed and chair. Pt. tolerating full liquids. VSS personal items and call bunn in reach.
[2024-10-05 07:11] LABS: Basophils # 0.1 K/mm3 (0-0.2); Basophils % 0.4 % (0.1-2.0); Eosinophils # 0.2 K/mm3 (0.0-0.4); Eosinophils % 0.8 % (0.1-12.0); Hematocrit 30.3 % (37.0-47.0); Hemoglobin 10.1 g/dL (12.2-16.2); Lymphocytes # 2.5 K/mm3 (0.7-4.5); Lymphocytes % 9.1 % (10-50); Mean Corpuscular HGB Conc 33.3 g/dL (31.8-35.4); Mean Corpuscular Hemoglobin 29.4 pg (27.0-31.2); Mean Corpuscular Volume 88.1 fl (81-99); Mean Platelet Volume 10.1 fl (7.4-10.4); Monocytes # 2.3 K/mm3 (0.1-1.0); Monocytes % 8.4 % (1.7-9.3); Neutrophils # 21.3 K/mm3 (1.8-7.8); Neutrophils % 78.1 % (37.0-80.0); Platelet Count 414 K/mm3 (142-424); Red Blood Count 3.44 M/mm3 (4.20-5.40); White Blood Count 27.2 K/mm3 (4.8-10.8)
[2024-10-05 07:16] LABS: Alanine Aminotransferase 19 U/L (12-78); Albumin Level 2.3 g/dl (3.5-5.0); Albumin/Globulin Ratio 0.9 (1.1-1.8); Alkaline Phosphatase 115 U/L (38-126); Anion Gap 7.6 mEq/L (5-15); Aspartate Amino Transferase 32 U/L (14-36); Bilirubin,Total 0.5 mg/dl (0.2-1.3); Blood Urea Nitrogen 13 mg/dl (7-17); Calcium 7.7 mg/dl (8.4-10.2); Carbon Dioxide 32 mmol/L (22.0-30.0); Chloride 97 mmol/L (98-107); Creatinine Clearance Estimated 19 mL/min (50-200); Estimated Glomerular Filt Rate 82 ml/min (>60); GFR (African American) 99 ML/MIN (>60); Globulin 2.5 g/dL (1.3-3.2); Glucose 107 mg/dl (74-100); Potassium 4.6 mmoL/L (3.5-5.1); Sodium 132 mmol/L (136-145); Total Protein,Serum 4.8 g/dl (6.3-8.2)
[2024-10-05 07:25] LABS: MANUAL DIFFERENTIAL MANUAL DIFFERENTIAL (MANUAL DIFF)
--- NOTE | 2024-10-05 07:27 | CT_ITS ---
FINAL REPORT TECHNIQUE: After the administration of oral and intravenous contrast, axial images were obtained through the abdomen and pelvis by computed tomography. The study was performed with techniques to keep radiation dose as low as reasonably achievable, (ALARA). Individual dose reduction techniques using automated exposure control or adjustment of mA and/or kV according to the patient's size were employed. CLINICAL HISTORY: PERF ULCER, ABDOMINAL PAIN, PROGRESSIVE LEUKOCYTOS COMPARISON: 09/29/2024 FINDINGS: Abdomen: There are dense bibasilar consolidations and moderate bilateral pleural effusions which have increased from the prior study. Again noted is intraperitoneal free air presumed related to interval surgery and placement of surgical drain. Benign-appearing cysts are seen in both lobes of the liver, similar to the prior study. There is a new subcapsular fluid collection in the anterior wall of the liver measuring 3.6 x 1.4 cm. Abnormal thickening is noted of the gallbladder wall with fluid surrounding the gallbladder. Inferior to the gallbladder is a new fluid locule measuring up to 4.9 x 3.3 cm, contiguous with the medial margin of the right lobe of the liver and also believed to be subcapsular, well seen on image 26 of series 601. A midline row of skin lul is present. Pelvis: There is a multitude of loops of free fluid in a distended small bowel measuring up to 3.8 cm in diameter. Small bowel distention is probably due to postoperative ileus. The uterus is present and midline. The urinary bladder is unremarkable. There is a minimal amount of free fluid in the pelvis. IMPRESSION: Interval abdominal surgery with placement of surgical drain in the upper mid abdomen. Persistent intraperitoneal free air, likely related to surgery and placement of drain. Subcapsular fluid collection along the liver margin. Cannot exclude developing subcapsular abscess. Follow-up recommended. Significant distended loops of small bowel, probably due to postoperative ileus. Reviewed, Interpreted and Dictated by Hany Villa MD Transcribed by Shae Pearce Authenticated and [facility]
--- NOTE | 2024-10-05 07:36 | EXP.SURG.PN ---
Subjective Narrative: Patient without any complaints whatsoever. Feels well. Has been tolerating full liquids. Bowels moving. No nausea. RADHA output serous. Exam Data for Last 24 hours Vital signs and Labs for Last 24 Hours: Temp Pulse Resp BP Pulse Ox O2 Del Method O2 Flow Rate 98.7 F 101 H 16 134/71 91 L Room Air 2 10/05/24 04:00 10/05/24 04:00 10/05/24 04:00 10/05/24 04:00 10/05/24 04:00 10/05/24 07:00 10/04/24 08:00 Laboratory Results - last 24 hr 10/04/24 07:00: WBC 24.8 H* D, RBC 3.53 L, Hgb 10.3 L, Hct 31.1 L, MCV 88.1, MCH 29.2, MCHC 33.1, RDW 13.8, Plt Count 369, MPV 10.1, Neut % (Auto) 78.4, Lymph % (Auto) 9.2 L, [place] % (Auto) 8.1, Eos % (Auto) 0.8, Baso % (Auto) 0.4, Neut # (Auto) 19.4 H, Lymph # (Auto) 2.3, [place] # (Auto) 2.0 H, Eos # (Auto) 0.2, Baso # (Auto) 0.1, Total Counted 100, Neutrophils % (Manual) 87 H, Lymphocytes % (Manual) 10, Monocytes % (Manual) 3, Platelet Estimate Normal, RBC Morphology Normal, Sodium 133 L, Potassium 4.0 D, Chloride 97 L, Carbon Dioxide 32 H, Anion Gap 8.0, BUN 16, Creatinine 0.70, Estimated Creat Clear 42, Estimated GFR 82, Est GFR ( Amer) 99, Glucose 90, Calcium 7.8 L, Magnesium 1.7 D, Total Bilirubin 0.7, AST 32, ALT 18, Alkaline Phosphatase 114, Total Protein 4.8 L, Albumin 2.2 L, Globulin 2.6, Albumin/Globulin Ratio 0.8 L 10/05/24 06:49: WBC 27.2 H*, RBC 3.44 L, Hgb 10.1 L, Hct 30.3 L, MCV 88.1, MCH 29.4, MCHC 33.3, RDW 14.0, Plt Count 414, MPV 10.1, Neut % (Auto) 78.1, Lymph % (Auto) 9.1 L, [place] % (Auto) 8.4, Eos % (Auto) 0.8, Baso % (Auto) 0.4, Neut # (Auto) 21.3 H, Lymph # (Auto) 2.5, [place] # (Auto) 2.3 H, Eos # (Auto) 0.2, Baso # (Auto) 0.1, Sodium 132 L, Potassium 4.6, Chloride 97 L, Carbon Dioxide 32 H, Anion Gap 7.6, BUN 13, Creatinine 0.70, Estimated Creat Clear 19, Estimated GFR 82, Est GFR ( Amer) 99, Glucose 107 H, Calcium 7.7 L, Magnesium 2.0 D, Total Bilirubin 0.5, AST 32, ALT 19, Alkaline Phosphatase 115, Total Protein 4.8 L, Albumin 2.3 L, Globulin 2.5, Albumin/Globulin Ratio 0.9 L I & O for Last 24 hours: Intake & Output 10/02/24 10/03/24 10/04/24 10/05/24 11:59 11:59 11:59 11:59 Intake Total 650 / 650 1680 / 1680 1130 / 1130 1070 / 1070 Output Total 277 / 277 360 / 360 260 / 260 210 / 210 Balance 373 / 373 1320 / 1320 870 / 870 860 / 860 Weight 130 lb 120 lb 119 lb 14.903 oz 53 lb 6.4 oz *Routine Abdominal Exam Abdominal: Present distended Progress Note: A&P Assessment and plan (1) Gastric perforation: Status: Acute Assessment and plan: Patient looks well however she has had progressive leukocytosis. White blood cell count now 27,000. No fevers. Plan for CT scan to evaluate for potential abscess although this seems rather early. (2) Elevated brain natriuretic peptide (BNP) level: Status: Acute (3) Elevated troponin I level: Status: Acute (4) Hypertension: Status: Chronic (5) Hyperlipidemia: Status: Chronic (6) Arthralgia: Status: Acute
[2024-10-05 08:00] VITALS: BP 141/77; PULSE 102; RESP 16; TEMP 36.6; O2SAT 93
[2024-10-05] MEDS: POTASSIUM CHLORIDE 20MEQ/15ML UDC 40 MEQ PO ×2 (08:52→21:36)
[2024-10-05] MEDS: PANTOPRAZOLE 40MG VIAL 40 MG IV ×2 (08:52→21:35)
[2024-10-05 08:53] LABS: Lymphocytes % 12 % (10-50); Monocytes % 7 % (2-9); Neutrophils % 81 % (42-76); Platelet Estimate Normal; RBC Morphology Normal; Total Cells Counted 100
--- NOTE | 2024-10-05 09:03 | XR_ITS ---
FINAL REPORT CLINICAL HISTORY: sepsis workup COMPARISON: None FINDINGS: The heart size is normal. The mediastinum is normal. The lungs are underinflated. There is pleural-parenchymal scarring in the right lung base. The left lung is clear. There are no pleural effusions. There is no pneumothorax. There is no osseous abnormality. IMPRESSION: Right lung base pleural-parenchymal scarring. Reviewed, Interpreted and Dictated by Hany Villa MD Transcribed by Shae Pearce Authenticated and [facility]
[2024-10-05] MEDS: MEROPENEM 0.5 GM in 0.9 % SODIUM CHLORIDE 100 ML IV ×2 (10:21→21:33)
--- NOTE | 2024-10-05 10:55 | HMH.ITSTN ---
I spoke with nurse Tory patient is getting antibiotics and said they will be done by 11:30am. We can come get patient at 11:30am for ct scan.
[2024-10-05 11:31] VITALS: BP 142/79; PULSE 91; RESP 16; TEMP 36.7; O2SAT 93
[2024-10-05] MEDS: SODIUM CHLORIDE 0.9% 10ML SYR (RAD ONLY) 10 ML IV (13:07)
[2024-10-05] MEDS: IOPAMIDOL-370 (76%);100ML BOTTLE 75 ML IV (13:07)
[2024-10-05 16:00] VITALS: BP 136/77; PULSE 107; RESP 16; TEMP 36.6; O2SAT 97
--- NOTE | 2024-10-05 16:56 | EXP.PN ---
Subjective *Date: 10/05/24 *Time: 16:56 Interval history: Patient states she feels really well today, tolerating p.o. intake and ambulating independently. Having bowel movements. No abdominal pain. No fever/chills. However, WBC continues to increase to 27 today. Follow-up CT abdomen/pelvis. Exam Data for Last 24 hours Vital signs and Labs for Last 24 Hours: Temp Pulse Resp BP Pulse Ox O2 Del Method O2 Flow Rate 97.9 F 107 H 16 136/77 97 Room Air 2 10/05/24 16:00 10/05/24 16:00 10/05/24 16:00 10/05/24 16:00 10/05/24 16:00 10/05/24 07:00 10/04/24 08:00 Laboratory Results - last 24 hr 10/05/24 06:49: WBC 27.2 H*, RBC 3.44 L, Hgb 10.1 L, Hct 30.3 L, MCV 88.1, MCH 29.4, MCHC 33.3, RDW 14.0, Plt Count 414, MPV 10.1, Neut % (Auto) 78.1, Lymph % (Auto) 9.1 L, [place] % (Auto) 8.4, Eos % (Auto) 0.8, Baso % (Auto) 0.4, Neut # (Auto) 21.3 H, Lymph # (Auto) 2.5, [place] # (Auto) 2.3 H, Eos # (Auto) 0.2, Baso # (Auto) 0.1, Total Counted 100, Neutrophils % (Manual) 81 H, Lymphocytes % (Manual) 12, Monocytes % (Manual) 7, Platelet Estimate Normal, RBC Morphology Normal, Sodium 132 L, Potassium 4.6, Chloride 97 L, Carbon Dioxide 32 H, Anion Gap 7.6, BUN 13, Creatinine 0.70, Estimated Creat Clear 19, Estimated GFR 82, Est GFR ( Amer) 99, Glucose 107 H, Calcium 7.7 L, Magnesium 2.0 D, Total Bilirubin 0.5, AST 32, ALT 19, Alkaline Phosphatase 115, Total Protein 4.8 L, Albumin 2.3 L, Globulin 2.5, Albumin/Globulin Ratio 0.9 L I & O for Last 24 hours: Intake & Output 10/02/24 10/03/24 10/04/2410/05/25 23:59 23:59 23:59 23:59 Intake Total 1150 / 1850 2260 / 2310 770 / 1120 350 / 350 Output Total 245 / 325 390 / 470 190 / 280 210 / 210 Balance 905 / 1525 1870 / 1840 580 / 840 140 / 140 Weight 58.967 kg 54.431 kg 54.4 kg 24.222 kg Constitutional Constitutional: no acute distress *Routine HEENT Exam Head: Present normocephalic Eye: Present EOMI and PERRL ENT: Present mucous membranes moist *Routine Neck Exam Neck: Present supple; Absent lymphadenopathy *Routine Respiratory Exam Respiratory: Present CTA bilaterally *Routine Cardiovascular Exam Cardiovascular: Present RRR *Routine Abdominal Exam Abdominal: Present soft and normoactive bowel sounds; Absent tenderness *Routine Extremities Exam Extremities: Absent cyanosis, clubbing or edema *Routine Skin Exam Skin: Present warm; Absent rash *Routine Neurological Exam Neurological: Present alert and oriented X3 Assessment and Plan *Assessment and plan (1) Gastric perforation: Status: Acute Category: Medical Code(s): K25.5 - Chronic or unspecified gastric ulcer with perforation (2) Elevated brain natriuretic peptide (BNP) level: Status: Acute Category: Medical Code(s): R79.89 - Other specified abnormal findings of blood chemistry (3) Elevated troponin I level: Status: Acute Category: Medical Code(s): R79.89 - Other specified abnormal findings of blood chemistry (4) Hypertension: Status: Chronic Qualifiers: Hypertension type: primary hypertension Qualified Code(s): I10 - Essential (primary) hypertension Category: Medical Code(s): I10 - Essential (primary) hypertension (5) Hyperlipidemia: Status: Chronic Qualifiers: Hyperlipidemia type: mixed hyperlipidemia Qualified Code(s): E78.2 - Mixed hyperlipidemia Category: Medical Code(s): E78.5 - Hyperlipidemia, unspecified (6) Arthralgia: Status: Acute Qualifiers: Joint pain location: other joint Qualified Code(s): M25.59 - Pain in other specified joint Category: Medical Code(s): M25.50 - Pain in unspecified joint Plan Ms. Clements presented with one week of escalating gastrointestinal symptoms and imaging suspicious for free air in the abdomen. Labs demonstrated leukocytosis (WBC 16.2 K/?L), elevated procalcitonin (3.83 ng/mL), and electrolyte abnormalities (hypokalemia and hypomagnesemia). Initial management included IV fluids given concern for potential sepsis due to tachycardia and elevated procalcitonin, alongside antiemetics and analgesics. CT imaging confirmed likely gastric/duodenal perforation, and General Surgery was consulted for urgent intervention. Intraoperatively, a large anterior duodenal perforation near the pyloric channel with well-established peritonitis was identified and addressed. Patient doing well today. Continue full liquid diet. Continues to require in-patient management. Having bowel movements. Problems addressed as follows: Anterior Duodenal Perforation Abdominal pain Nausea and vomiting - Found to have abrasion in stomach. Closed in the OR 09/29/2024. Discussed case with surgery, will hold on advancing diet today. Continue antibiotics for the time being. Monitoring RADHA output. - Unfortunately, WBC has again increased from 25-27.2. Patient remains afebrile. No focal sign of infection. ? General Surgery following, follow-up repeat CT abdomen/pelvis today, pending final read. Evaluate for possible intra-abdominal abscess. Hemoglobin 10. Repeat CBC, CMP, magnesium ordered for the morning. - Transitioned to meropenem today, discontinued Zosyn. - Continue pain control, transition off IV pain medication to p.o. hydrocodone every 4-6 hours as needed for severe pain. Monitoring for toxicity. - Continue pantoprazole 40 mg IV twice daily. Monitoring for improvement in bowel function prior to advancing diet. - Continue full liquid diet. - Nausea and vomiting resolved. Zofran as needed every 8 hours Electrolyte Abnormalities (Hypokalemia, Hypomagnesemia) Kidney function stable with BUN 16, creatinine 0.7. Sodium 133. Potassium 4.6. Full code VTE prophylaxis with SCDs Pantoprazole as above
--- NOTE | 2024-10-05 18:45 | PC.NURSE ---
Patient is a&ox4 and vss. Patient states po pain medication is still continuing to control pain and she has been up to chair for several hours.
[2024-10-05 20:00] VITALS: BP 135/76; PULSE 104; RESP 14; TEMP 36.8; O2SAT 97
[2024-10-05] MEDS: SODIUM CHLORIDE 0.9% 10ML FLUSH SYRINGE 10 ML IV (21:32)
[2024-10-05] MEDS: SODIUM CHLORIDE 0.9% 10ML VIAL 10 ML IV (21:35)
[2024-10-06] VITALS (7 sets, daily range): BP systolic 129–149; BP diastolic 66–97; PULSE 99–115; RESP 14–18; TEMP 36.4–37; O2SAT 93–98; BMI 20.9
[2024-10-06] MEDS: OXYCODONE 5MG IMMEDIATE RELEASE TABLET 5 MG PO ×5 (02:49→20:35)
--- NOTE | 2024-10-06 04:45 | PC.NURSE ---
Pt. is alert and orientated x 4. Pt. on room air. c/o pain to upper abdominal mid line incision with lul. RUQ with RADHA drain. RADHA drain with serrous output. RADHA drainage has slowed down compared to past several days. Pt. also c/o lower abdominal bloating and abd. pressure. Low abd. distended and firmer than previous days. Bowel sounds active. No nausea or vomiting. Pt. also moving bowels.. Pt. gets up to chair and ambulates to bathroom with assist x 1. Pt. taking PO pain meds and pain is more controlled. Pt. tolerating PO full liquid diet. Vss. Personal items and call light in reach.
[2024-10-06 07:46] LABS: Basophils # 0.1 K/mm3 (0-0.2); Basophils % 0.3 % (0.1-2.0); Eosinophils # 0.1 K/mm3 (0.0-0.4); Eosinophils % 0.5 % (0.1-12.0); Hematocrit 34.5 % (37.0-47.0); Hemoglobin 11.7 g/dL (12.2-16.2); Lymphocytes # 2.4 K/mm3 (0.7-4.5); Lymphocytes % 10.3 % (10-50); Mean Corpuscular HGB Conc 33.9 g/dL (31.8-35.4); Mean Corpuscular Hemoglobin 29.9 pg (27.0-31.2); Mean Corpuscular Volume 88.2 fl (81-99); Mean Platelet Volume 10.4 fl (7.4-10.4); Monocytes # 1.9 K/mm3 (0.1-1.0); Monocytes % 8.3 % (1.7-9.3); Neutrophils # 17.8 K/mm3 (1.8-7.8); Neutrophils % 76.5 % (37.0-80.0); Platelet Count 498 K/mm3 (142-424); Red Blood Count 3.91 M/mm3 (4.20-5.40); Red Cell Distribution Width 14.4 % (11.5-17.5); White Blood Count 23.2 K/mm3 (4.8-10.8)
[2024-10-06 07:51] LABS: Alanine Aminotransferase 24 U/L (12-78); Albumin Level 2.6 g/dl (3.5-5.0); Albumin/Globulin Ratio 0.9 (1.1-1.8); Alkaline Phosphatase 122 U/L (38-126); Aspartate Amino Transferase 39 U/L (14-36); Bilirubin,Total 0.6 mg/dl (0.2-1.3); Blood Urea Nitrogen 8 mg/dl (7-17); Calcium 8.2 mg/dl (8.4-10.2); Carbon Dioxide 30 mmol/L (22.0-30.0); Chloride 97 mmol/L (98-107); Creatinine Clearance Estimated 46 mL/min (50-200); Estimated Glomerular Filt Rate 98 ml/min (>60); GFR (African American) 118 ML/MIN (>60); Globulin 2.8 g/dL (1.3-3.2); Glucose 95 mg/dl (74-100); Magnesium 1.8 mg/dl (1.6-2.3); Sodium 132 mmol/L (136-145); Total Protein,Serum 5.4 g/dl (6.3-8.2)
[2024-10-06 08:02] LABS: MANUAL DIFFERENTIAL MANUAL DIFFERENTIAL (MANUAL DIFF)
[2024-10-06] MEDS: MEROPENEM 0.5 GM in 0.9 % SODIUM CHLORIDE 100 ML IV (08:35)
[2024-10-06] MEDS: POTASSIUM CHLORIDE 20MEQ/15ML UDC 40 MEQ PO ×2 (08:38→20:42)
[2024-10-06] MEDS: PANTOPRAZOLE 40MG TABLET 40 MG PO ×2 (08:38→20:38)
--- NOTE | 2024-10-06 08:47 | EXP.SURG.PN ---
Subjective Patient reports: no new complaints Narrative: Minimal flatus Exam Data for Last 24 hours Vital signs and Labs for Last 24 Hours: Temp Pulse Resp BP Pulse Ox O2 Del Method O2 Flow Rate 97.9 F 102 H 16 149/76 H 93 L Room Air 2 10/06/24 04:00 10/06/24 04:00 10/06/24 04:00 10/06/24 04:00 10/06/24 04:00 10/06/24 06:51 10/04/24 08:00 Laboratory Results - last 24 hr 10/05/24 06:49: Total Counted 100, Neutrophils % (Manual) 81 H, Lymphocytes % (Manual) 12, Monocytes % (Manual) 7, Platelet Estimate Normal, RBC Morphology Normal 10/06/24 07:21: WBC 23.2 H*, RBC 3.91 L, Hgb 11.7 L, Hct 34.5 L, MCV 88.2, MCH 29.9, MCHC 33.9, RDW 14.4, Plt Count 498 H, MPV 10.4, Neut % (Auto) 76.5, Lymph % (Auto) 10.3, [place] % (Auto) 8.3, Eos % (Auto) 0.5, Baso % (Auto) 0.3, Neut # (Auto) 17.8 H, Lymph # (Auto) 2.4, [place] # (Auto) 1.9 H, Eos # (Auto) 0.1, Baso # (Auto) 0.1, Sodium 132 L, Potassium 5.0, Chloride 97 L, Carbon Dioxide 30, Anion Gap 10.0, BUN 8 D, Creatinine 0.60, Estimated Creat Clear 46, Estimated GFR 98, Est GFR ( Amer) 118, Glucose 95, Calcium 8.2 L, Magnesium 1.8, Total Bilirubin 0.6, AST 39 H, ALT 24 D, Alkaline Phosphatase 122, Total Protein 5.4 L, Albumin 2.6 L D, Globulin 2.8, Albumin/Globulin Ratio 0.9 L I & O for Last 24 hours: Intake & Output 10/03/24 10/04/24 10/05/24 10/06/24 11:59 11:59 11:59 11:59 Intake Total 1680 / 1680 1130 / 1130 1430 / 1430 820 / 820 Output Total 360 / 360 260 / 260 210 / 210 180 / 180 Balance 1320 / 1320 870 / 870 1220 / 1220 640 / 640 Weight 120 lb 119 lb 14.903 oz 53 lb 6.4 oz 130 lb Constitutional Constitutional: no acute distress *Routine Respiratory Exam Respiratory: Absent respiratory distress *Routine Abdominal Exam Abdominal: Present soft and distended Comments: Incision healing without evidence of infection Progress Note: A&P Assessment and plan (1) Gastric perforation: Status: Acute Assessment and plan: Overall, doing very well status post exploratory laparotomy/Kj patch Continue to increase ambulation (2) Postoperative ileus: Status: Acute Assessment and plan: Await more significant return of bowel function before advancing diet (3) Leukocytosis: Status: Acute Assessment and plan: Etiology somewhat equivocal. Possible developing intra-abdominal abscess. Continue antibiotics May ultimately require percutaneous drainage
[2024-10-06 12:25] LABS: Lymphocytes % 22 % (10-50); Monocytes % 6 % (2-9); Neutrophils % 72 % (42-76); Total Cells Counted 100
[2024-10-06 12:26] LABS: Platelet Estimate Slight Increase; RBC Morphology Normal
[2024-10-06] MEDS: MAGNESIUM SULFATE IN WATER 2 GM/50 ML PIGGYBACK IV (12:33)
--- NOTE | 2024-10-06 17:21 | EXP.PN ---
Subjective *Date: 10/06/24 *Time: 17:21 Interval history: Patient is doing well today, however states she is having slightly increased abdominal discomfort today. No tenderness to palpation of the abdomen. No fever/chills. She is having watery bowel movements today, improvement from yesterday. Anticipate advancing diet tomorrow after discussing with general surgery. Possible IR guided drainage on Friday for suspected abscess formation along the liver margin after speaking to general surgery again tomorrow. Exam Data for Last 24 hours Vital signs and Labs for Last 24 Hours: Temp Pulse Resp BP Pulse Ox O2 Del Method O2 Flow Rate 97.8 F 100 H 16 129/97 H 97 Room Air 2 10/06/24 16:00 10/06/24 16:00 10/06/24 16:00 10/06/24 16:00 10/06/24 16:00 10/06/24 16:40 10/04/24 08:00 Laboratory Results - last 24 hr 10/06/24 07:21: WBC 23.2 H*, RBC 3.91 L, Hgb 11.7 L, Hct 34.5 L, MCV 88.2, MCH 29.9, MCHC 33.9, RDW 14.4, Plt Count 498 H, MPV 10.4, Neut % (Auto) 76.5, Lymph % (Auto) 10.3, [place] % (Auto) 8.3, Eos % (Auto) 0.5, Baso % (Auto) 0.3, Neut # (Auto) 17.8 H, Lymph # (Auto) 2.4, [place] # (Auto) 1.9 H, Eos # (Auto) 0.1, Baso # (Auto) 0.1, Total Counted 100, Neutrophils % (Manual) 72, Lymphocytes % (Manual) 22, Monocytes % (Manual) 6, Platelet Estimate Slight increase, RBC Morphology Normal, Sodium 132 L, Potassium 5.0, Chloride 97 L, Carbon Dioxide 30, Anion Gap 10.0, BUN 8 D, Creatinine 0.60, Estimated Creat Clear 46, Estimated GFR 98, Est GFR ( Amer) 118, Glucose 95, Calcium 8.2 L, Magnesium 1.8, Total Bilirubin 0.6, AST 39 H, ALT 24 D, Alkaline Phosphatase 122, Total Protein 5.4 L, Albumin 2.6 L D, Globulin 2.8, Albumin/Globulin Ratio 0.9 L I & O for Last 24 hours: Intake & Output 10/03/24 10/04/24 10/05/24 10/06/24 23:59 23:59 23:59 23:59 Intake Total 2260 / 2310 770 / 1120 1430 / 1530 1060 / 1060 Output Total 390 / 470 190 / 280 340 / 390 50 / 50 Balance 1870 / 1840 580 / 840 1090 / 1140 1010 / 1010 Weight 54.431 kg 54.4 kg 24.222 kg 58.967 kg Microbiology Reports for the Last 24 Hours: Microbiology 10/05/24 09:39 Blood Blood Culture - Preliminary NO GROWTH AFTER 24 HOURS 10/05/24 09:44 Blood Blood Culture - Preliminary NO GROWTH AFTER 24 HOURS Constitutional Constitutional: no acute distress *Routine HEENT Exam Head: Present normocephalic Eye: Present EOMI and PERRL ENT: Present mucous membranes moist *Routine Neck Exam Neck: Present supple; Absent lymphadenopathy *Routine Respiratory Exam Respiratory: Present CTA bilaterally *Routine Cardiovascular Exam Cardiovascular: Present RRR *Routine Abdominal Exam Abdominal: Present soft and normoactive bowel sounds; Absent tenderness Comments: Incision sites clean dry and intact. No epigastric tenderness. *Routine Extremities Exam Extremities: Absent cyanosis, clubbing or edema *Routine Skin Exam Skin: Present warm; Absent rash *Routine Neurological Exam Neurological: Present alert and oriented X3 Assessment and Plan *Assessment and plan (1) Gastric perforation: Status: Acute Category: Medical Code(s): K25.5 - Chronic or unspecified gastric ulcer with perforation (2) Elevated brain natriuretic peptide (BNP) level: Status: Acute Category: Medical Code(s): R79.89 - Other specified abnormal findings of blood chemistry (3) Elevated troponin I level: Status: Acute Category: Medical Code(s): R79.89 - Other specified abnormal findings of blood chemistry (4) Hypertension: Status: Chronic Qualifiers: Hypertension type: primary hypertension Qualified Code(s): I10 - Essential (primary) hypertension Category: Medical Code(s): I10 - Essential (primary) hypertension (5) Hyperlipidemia: Status: Chronic Qualifiers: Hyperlipidemia type: mixed hyperlipidemia Qualified Code(s): E78.2 - Mixed hyperlipidemia Category: Medical Code(s): E78.5 - Hyperlipidemia, unspecified (6) Arthralgia: Status: Acute Qualifiers: Joint pain location: other joint Qualified Code(s): M25.59 - Pain in other specified joint Category: Medical Code(s): M25.50 - Pain in unspecified joint Plan Ms. Clements presented with one week of escalating gastrointestinal symptoms and imaging suspicious for free air in the abdomen. Labs demonstrated leukocytosis (WBC 16.2 K/?L), elevated procalcitonin (3.83 ng/mL), and electrolyte abnormalities (hypokalemia and hypomagnesemia). Initial management included IV fluids given concern for potential sepsis due to tachycardia and elevated procalcitonin, alongside antiemetics and analgesics. CT imaging confirmed likely gastric/duodenal perforation, and General Surgery was consulted for urgent intervention. Intraoperatively, a large anterior duodenal perforation near the pyloric channel with well-established peritonitis was identified and addressed. Patient doing well today. Continue full liquid diet. Continues to require in-patient management. Having bowel movements. Problems addressed as follows: Anterior Duodenal Perforation Abdominal pain Nausea and vomiting #Sepsis - Found to have abrasion in stomach. Closed in the OR 09/29/2024. Continue antibiotics for the time being. Monitoring RADHA output, currently minimal and serous. - WBC has finally decreased today, from 27-23. However, continues to be slightly tachycardic at 100 bpm. ? Repeat CT abdomen/pelvis 10/05/2024 revealed fluid collection along the liver margin, cannot rule out subscapular abscess. Will discuss with general surgery again tomorrow who preliminarily said patient may need IR guided drainage on Friday. ? Patient does have slightly increased abdominal discomfort today, predominantly in the epigastric region along the suture line. Incision clean dry and intact. ? Patient is having watery bowel movements today, improvement from the last few days. Will speak to surgery tomorrow about advancing diet. - Continue meropenem today, had discontinued Zosyn. - Continue pain control, transition off IV pain medication to p.o. hydrocodone every 4-6 hours as needed for severe pain. Monitoring for toxicity. - Continue pantoprazole 40 mg IV twice daily. Monitoring for improvement in bowel function prior to advancing diet. - Continue clear liquid diet. - Nausea and vomiting resolved. Zofran as needed every 8 hours Electrolyte Abnormalities (Hypokalemia, Hypomagnesemia) Kidney function stable with creatinine 0.6. Sodium 132. Potassium 5.0 Full code VTE prophylaxis with SCDs Pantoprazole as above
--- NOTE | 2024-10-06 18:17 | PC.NURSE ---
aox4, has sat up to chair for most of shift, using IS as ordered. abd distended in lower quadrants x2, encouraged ambulation. tolerating po intake well. medicated for pain per mar.
[2024-10-06] MEDS: PRAVASTATIN 20MG TAB 20 MG PO (20:38)
[2024-10-06] MEDS: MEROPENEM 1 GM in 0.9 % SODIUM CHLORIDE 100 ML IV (20:38)
[2024-10-07] MEDS: OXYCODONE 5MG IMMEDIATE RELEASE TABLET 5 MG PO ×4 (02:55→22:39)
[2024-10-07 03:56] VITALS: BP 131/76; PULSE 98; RESP 16; TEMP 37.2; O2SAT 95
--- NOTE | 2024-10-07 04:20 | PC.NURSE ---
Patient is alert and oriented x4. Patient was observed to have eyes closed, respirations even and unlabored on room air, and no apparent distress for the majority of the night. She has complained of abdominal pain, primarily in her lower quadrants, this shift of which has been treated with oxycodone per MAR. Patient was found to go back to resting after receiving pain medication. Her midline incision was assessed this shift; lul remain beautifully intact, and the area is free of drainage and redness. RADHA drain remains intact; drainage has been emptied, documented accordingly, and suction has been reset each time. Drainage appearance is transparent, bright yellow, and without odor. Patient denies nausea/vomiting. Scheduled medications have been administered per NOV. Potassium solution was diluted with apple juice. Patient has been tolerating clear liquid items very well this shift. Patient has been ambulating in her room/to the bathroom independently without any issues. She reports passing lots of gas, and audible bowel sounds could be heard on occasion. She describes her stool appearance as runny. Auscultation of her heart, lungs, and bowel sounds were within normal findings. Abdomen is distended, tender, and slightly puffy with palpation. Vital signs stable. At this time, the patient is resting in bed without any further complaints. No acute changes noted thus far. Call light within reach.
[2024-10-07 06:45] LABS: Alanine Aminotransferase 30 U/L (12-78); Albumin Level 2.4 g/dl (3.5-5.0); Albumin/Globulin Ratio 0.9 (1.1-1.8); Alkaline Phosphatase 111 U/L (38-126); Anion Gap 9.9 mEq/L (5-15); Aspartate Amino Transferase 57 U/L (14-36); Bilirubin,Total 0.5 mg/dl (0.2-1.3); Blood Urea Nitrogen 10 mg/dl (7-17); Calcium 8.2 mg/dl (8.4-10.2); Carbon Dioxide 30 mmol/L (22.0-30.0); Chloride 96 mmol/L (98-107); Creatinine Clearance Estimated 44 mL/min (50-200); Estimated Glomerular Filt Rate 98 ml/min (>60); GFR (African American) 118 ML/MIN (>60); Globulin 2.7 g/dL (1.3-3.2); Glucose 104 mg/dl (74-100); Magnesium 1.9 mg/dl (1.6-2.3); Potassium 4.9 mmoL/L (3.5-5.1); Sodium 131 mmol/L (136-145); Total Protein,Serum 5.1 g/dl (6.3-8.2)
[2024-10-07 07:28] VITALS: BP 133/71; PULSE 106; RESP 18; TEMP 36.5; O2SAT 95
[2024-10-07 07:29] LABS: Basophils # 0.1 K/mm3 (0-0.2); Basophils % 0.3 % (0.1-2.0); Eosinophils # 0.2 K/mm3 (0.0-0.4); Eosinophils % 0.9 % (0.1-12.0); Hematocrit 30.5 % (37.0-47.0); Lymphocytes % 11.4 % (10-50); Mean Corpuscular HGB Conc 33.1 g/dL (31.8-35.4); Mean Corpuscular Hemoglobin 29.4 pg (27.0-31.2); Mean Corpuscular Volume 88.9 fl (81-99); Mean Platelet Volume 10.7 fl (7.4-10.4); Monocytes # 1.6 K/mm3 (0.1-1.0); Monocytes % 9.2 % (1.7-9.3); Neutrophils % 73.7 % (37.0-80.0); Platelet Count 540 K/mm3 (142-424); Red Blood Count 3.43 M/mm3 (4.20-5.40); Red Cell Distribution Width 14.5 % (11.5-17.5); White Blood Count 17.6 K/mm3 (4.8-10.8)
[2024-10-07 07:30] LABS: Hemoglobin 10.1 g/dL (12.2-16.2); MANUAL DIFFERENTIAL MANUAL DIFFERENTIAL (MANUAL DIFF)
--- NOTE | 2024-10-07 07:52 | P.PN_ITS ---
Subjective Narrative: Patient without significant complaints other than feeling bloated. Passing some gas. Tolerating clear liquids. Exam Data for Last 24 hours Vital signs and Labs for Last 24 Hours: Temp Pulse Resp BP Pulse Ox O2 Del Method O2 Flow Rate 97.7 F 106 H 18 133/71 95 Room Air 93 10/07/24 07:28 10/07/24 07:28 10/07/24 07:28 10/07/24 07:28 10/07/24 07:28 10/07/24 07:28 10/06/24 23:43 Laboratory Results - last 24 hr 10/06/24 07:21: WBC 23.2 H*, RBC 3.91 L, Hgb 11.7 L, Hct 34.5 L, MCV 88.2, MCH 29.9, MCHC 33.9, RDW 14.4, Plt Count 498 H, MPV 10.4, Neut % (Auto) 76.5, Lymph % (Auto) 10.3, [place] % (Auto) 8.3, Eos % (Auto) 0.5, Baso % (Auto) 0.3, Neut # (Auto) 17.8 H, Lymph # (Auto) 2.4, [place] # (Auto) 1.9 H, Eos # (Auto) 0.1, Baso # (Auto) 0.1, Total Counted 100, Neutrophils % (Manual) 72, Lymphocytes % (Manual) 22, Monocytes % (Manual) 6, Platelet Estimate Slight increase, RBC Morphology Normal, Sodium 132 L, Potassium 5.0, Chloride 97 L, Carbon Dioxide 30, Anion Gap 10.0, BUN 8 D, Creatinine 0.60, Estimated Creat Clear 46, Estimated GFR 98, Est GFR ( Amer) 118, Glucose 95, Calcium 8.2 L, Magnesium 1.8, Total Bilirubin 0.6, AST 39 H, ALT 24 D, Alkaline Phosphatase 122, Total Protein 5.4 L, Albumin 2.6 L D, Globulin 2.8, Albumin/Globulin Ratio 0.9 L 10/07/24 06:16: WBC 17.6 H, RBC 3.43 L, Hgb 10.1 L D, Hct 30.5 L, MCV 88.9, MCH 29.4, MCHC 33.1, RDW 14.5, Plt Count 540 H, MPV 10.7 H, Neut % (Auto) 73.7, Lymph % (Auto) 11.4, [place] % (Auto) 9.2, Eos % (Auto) 0.9, Baso % (Auto) 0.3, Neut # (Auto) 13.0 H, Lymph # (Auto) 2.0, [place] # (Auto) 1.6 H, Eos # (Auto) 0.2, Baso # (Auto) 0.1, Sodium 131 L, Potassium 4.9, Chloride 96 L, Carbon Dioxide 30, Anion Gap 9.9, BUN 10, Creatinine 0.60, Estimated Creat Clear 44, Estimated GFR 98, Est GFR ( Amer) 118, Glucose 104 H, Calcium 8.2 L, Magnesium 1.9, Total Bilirubin 0.5, AST 57 H D, ALT 30, Alkaline Phosphatase 111, Total Protein 5.1 L, Albumin 2.4 L, Globulin 2.7, Albumin/Globulin Ratio 0.9 L I & O for Last 24 hours: Intake & Output 10/04/24 10/05/24 10/06/24 10/07/24 11:59 11:59 11:59 11:59 Intake Total 1130 / 1130 1430 / 1430 1300 / 1300 1880 / 1880 Output Total 260 / 260 210 / 210 180 / 180 90 / 90 Balance 870 / 870 1220 / 1220 1120 / 1120 1790 / 1790 Weight 119 lb 14.903 oz 53 lb 6.4 oz 130 lb 125 lb Microbiology Reports for the Last 24 Hours: Microbiology 10/05/24 09:39 Blood Blood Culture - Preliminary NO GROWTH AFTER 24 HOURS 10/05/24 09:44 Blood Blood Culture - Preliminary NO GROWTH AFTER 24 HOURS *Routine Abdominal Exam Abdominal: Present distended Progress Note: A&P Assessment and plan (1) Gastric perforation: Status: Acute Assessment and plan: Leukocytosis improving on current antibiotic. CT scan revealed postoperative changes, subcapsular fluid collection, and significant ileus but no definite abscess. Encourage ambulation. She may chew gum. Limited to clear liquids due to significant ongoing ileus. Add simethicone. (2) Elevated brain natriuretic peptide (BNP) level: Status: Acute (3) Elevated troponin I level: Status: Acute (4) Hypertension: Status: Chronic (5) Hyperlipidemia: Status: Chronic (6) Arthralgia: Status: Acute
[2024-10-07 08:06] LABS: Lymphocytes % 15 % (10-50); Monocytes % 4 % (2-9); Neutrophils % 81 % (42-76); Total Cells Counted 100
[2024-10-07 08:07] LABS: Platelet Estimate Moderate Increase; RBC Morphology Normal
[2024-10-07] MEDS: PANTOPRAZOLE 40MG TABLET 40 MG PO ×2 (08:45→20:35)
[2024-10-07] MEDS: MEROPENEM 1 GM in 0.9 % SODIUM CHLORIDE 100 ML IV ×2 (08:45→20:34)
[2024-10-07] MEDS: POTASSIUM CHLORIDE 20MEQ/15ML UDC 40 MEQ PO ×2 (08:45→20:34)
[2024-10-07] MEDS: SIMETHICONE 80MG CHEWABLE TABLET 160 MG PO ×3 (08:49→20:34)
[2024-10-07] MEDS: MORPHINE 2MG/ML SYRINGE 2 MG IV (10:02)
--- NOTE | 2024-10-07 10:33 | XR_ITS ---
FINAL REPORT CLINICAL HISTORY: Ileus, increased lower abdominal pain/pressure COMPARISON: CT abdomen pelvis 10/05/2024 FINDINGS: SINGLE VIEW ABDOMEN A single view of the abdomen was obtained. There is a midline row of skin lul. Gaseous distention is seen of loops of large and small bowel. Small bowel measures up to 4.8 cm. Findings are consistent with ileus. No abnormal calcifications are identified. IMPRESSION: Ileus. Recommend follow-up. Reviewed, Interpreted and Dictated by Hany Villa MD Transcribed by Shae Pearce Authenticated and [facility]
--- NOTE | 2024-10-07 11:57 | DIET.NUTRFU ---
Reviewed diet status in morning meeting. Patient continues on clear liquids secondary to abdominal pain secondary to gas. Limited to clear liquids due to significant ongoing ileus. Add simethicone- per sx. Provider order KUB. Patient is at increased risk for malnutrition secondary to limited protein intake. NPO from 09/29-10/01 and clear liquids 10/02-10/07 with one day of full liquids on 10/04. Patient is having bowel movements LBM 10/06. RD suggested TPN to help meet nutritional needs, provider feels possible upgrade tomorrow. Agreed to start Boost breeze with trays to help meet protein needs. Labs reviewed Na 131L, albumin 2.4L
[2024-10-07] MEDS: MAGNESIUM SULFATE IN WATER 2 GM/50 ML PIGGYBACK IV (12:25)
[2024-10-07] MEDS: 0.9 % SODIUM CHLORIDE 1000ML 500 ML IV (12:33)
[2024-10-07] MEDS: GLYCERIN ADULT 3GM SUPP 3 GM RC ×2 (14:46→22:40)
--- NOTE | 2024-10-07 15:06 | PC.NURSE ---
AOX4, NO BM TODAY BUT PASSING ALOT OF GAS SINCE SUPPOSITORY ADMIN. PT STATES RELIEF IN ABD PAIN AFTER PASSING FLATUS. MEDICATED FOR PAIN PER MAR. AMBULATING IN ROOM WITH ASSISTANCE FROM FAMILY. MAG REPLACED TODAY.
[2024-10-07 16:00] VITALS: BP 130/87; PULSE 90; RESP 19; TEMP 36.6; O2SAT 98
--- NOTE | 2024-10-07 17:08 | EXP.PN ---
Subjective *Date: 10/07/24 *Time: 17:08 Interval history: Patient endorsing mild lower abdominal pain today, abdomen continues to be distended. No tenderness to palpation. No bowel movements as of this morning. Encouraged to ambulate which patient is agreeable and trying. IR will evaluate patient tomorrow for possible IR guided drainage of intra-abdominal fluid collections which may be exacerbating ileus. Exam Data for Last 24 hours Vital signs and Labs for Last 24 Hours: Temp Pulse Resp BP Pulse Ox O2 Del Method O2 Flow Rate 97.8 F 90 19 130/87 98 Room Air 93 10/07/24 16:00 10/07/24 16:00 10/07/24 16:00 10/07/24 16:00 10/07/24 16:00 10/07/24 16:34 10/06/24 23:43 Laboratory Results - last 24 hr 10/07/24 06:16: WBC 17.6 H, RBC 3.43 L, Hgb 10.1 L D, Hct 30.5 L, MCV 88.9, MCH 29.4, MCHC 33.1, RDW 14.5, Plt Count 540 H, MPV 10.7 H, Neut % (Auto) 73.7, Lymph % (Auto) 11.4, [place] % (Auto) 9.2, Eos % (Auto) 0.9, Baso % (Auto) 0.3, Neut # (Auto) 13.0 H, Lymph # (Auto) 2.0, [place] # (Auto) 1.6 H, Eos # (Auto) 0.2, Baso # (Auto) 0.1, Total Counted 100, Neutrophils % (Manual) 81 H, Lymphocytes % (Manual) 15, Monocytes % (Manual) 4, Platelet Estimate Moderate increase, RBC Morphology Normal, Sodium 131 L, Potassium 4.9, Chloride 96 L, Carbon Dioxide 30, Anion Gap 9.9, BUN 10, Creatinine 0.60, Estimated Creat Clear 44, Estimated GFR 98, Est GFR ( Amer) 118, Glucose 104 H, Calcium 8.2 L, Magnesium 1.9, Total Bilirubin 0.5, AST 57 H D, ALT 30, Alkaline Phosphatase 111, Total Protein 5.1 L, Albumin 2.4 L, Globulin 2.7, Albumin/Globulin Ratio 0.9 L I & O for Last 24 hours: Intake & Output 10/04/24 10/05/24 10/06/24 10/07/24 23:59 23:59 23:59 23:59 Intake Total 770 / 1120 1430 / 1530 1820 / 1820 1000 / 1000 Output Total 190 / 280 340 / 390 100 / 100 40 / 40 Balance 580 / 840 1090 / 1140 1720 / 1720 960 / 960 Weight 54.4 kg 24.222 kg 58.967 kg 56.699 kg Microbiology Reports for the Last 24 Hours: Microbiology 10/05/24 09:44 Blood Blood Culture - Preliminary NO GROWTH AFTER 48 HOURS 10/05/24 09:39 Blood Blood Culture - Preliminary NO GROWTH AFTER 48 HOURS Constitutional Constitutional: no acute distress *Routine HEENT Exam Head: Present normocephalic Eye: Present EOMI and PERRL ENT: Present mucous membranes moist *Routine Neck Exam Neck: Present supple; Absent lymphadenopathy *Routine Respiratory Exam Respiratory: Present CTA bilaterally *Routine Cardiovascular Exam Cardiovascular: Present RRR *Routine Abdominal Exam Abdominal: Present distended Comments: Incision sites clean dry and intact. *Routine Extremities Exam Extremities: Absent cyanosis, clubbing or edema *Routine Skin Exam Skin: Present warm; Absent rash *Routine Neurological Exam Neurological: Present alert and oriented X3 Assessment and Plan *Assessment and plan (1) Gastric perforation: Status: Acute Category: Medical Code(s): K25.5 - Chronic or unspecified gastric ulcer with perforation (2) Elevated brain natriuretic peptide (BNP) level: Status: Acute Category: Medical Code(s): R79.89 - Other specified abnormal findings of blood chemistry (3) Elevated troponin I level: Status: Acute Category: Medical Code(s): R79.89 - Other specified abnormal findings of blood chemistry (4) Hypertension: Status: Chronic Qualifiers: Hypertension type: primary hypertension Qualified Code(s): I10 - Essential (primary) hypertension Category: Medical Code(s): I10 - Essential (primary) hypertension (5) Hyperlipidemia: Status: Chronic Qualifiers: Hyperlipidemia type: mixed hyperlipidemia Qualified Code(s): E78.2 - Mixed hyperlipidemia Category: Medical Code(s): E78.5 - Hyperlipidemia, unspecified (6) Arthralgia: Status: Acute Qualifiers: Joint pain location: other joint Qualified Code(s): M25.59 - Pain in other specified joint Category: Medical Code(s): M25.50 - Pain in unspecified joint Plan Ms. Clements presented with one week of escalating gastrointestinal symptoms and imaging suspicious for free air in the abdomen. Labs demonstrated leukocytosis (WBC 16.2 K/?L), elevated procalcitonin (3.83 ng/mL), and electrolyte abnormalities (hypokalemia and hypomagnesemia). Initial management included IV fluids given concern for potential sepsis due to tachycardia and elevated procalcitonin, alongside antiemetics and analgesics. CT imaging confirmed likely gastric/duodenal perforation, and General Surgery was consulted for urgent intervention. Intraoperatively, a large anterior duodenal perforation near the pyloric channel with well-established peritonitis was identified and addressed. Patient doing well today. Continue full liquid diet. Continues to require in-patient management. Having bowel movements. Problems addressed as follows: Anterior Duodenal Perforation Abdominal pain Nausea and vomiting #Sepsis - Found to have abrasion in stomach. Closed in the OR 09/29/2024. Continue antibiotics for the time being. Monitoring RADHA output, currently minimal and serous. - WBC continues to improve 17.6, peaked 27. Tachycardia also improving, currently 90 bpm. ? Repeat CT abdomen/pelvis 10/05/2024 revealed fluid collection along the liver margin, cannot rule out subscapular abscess. After discussion with surgery, reached out to IR team who recommended repeating CT abdomen/pelvis tomorrow to further evaluate progression of fluid collections for possible IR guided drainage. This may lead to improvement in ileus. ? Patient endorsing lower abdominal pain today, with no significant tenderness. Repeat KUB today shows persistent ileus. No bowel movements today as of this morning. - Continue meropenem today, had discontinued Zosyn. - Continue pain control, transition off IV pain medication to p.o. hydrocodone every 4-6 hours as needed for severe pain. Monitoring for toxicity. - Continue pantoprazole 40 mg IV twice daily. Monitoring for improvement in bowel function prior to advancing diet. - Continue clear liquid diet. - Nausea and vomiting resolved. Zofran as needed every 8 hours Electrolyte Abnormalities (Hypokalemia, Hypomagnesemia) Kidney function stable with creatinine 0.6. Sodium 132. Potassium 5.0 Full code VTE prophylaxis with SCDs Pantoprazole as above
[2024-10-07 19:53] VITALS: BP 131/78; PULSE 103; RESP 18; TEMP 36.9; O2SAT 98
[2024-10-07] MEDS: PRAVASTATIN 20MG TAB 20 MG PO (20:35)
[2024-10-07] MEDS: MORPHINE 2MG/ML SYRINGE 1 MG IV (20:35)
--- NOTE | 2024-10-07 22:17 | PC.NURSE ---
Contacted NIC Louis at this time with concerns of pt lower abdomen distension. Pt admits to pain in abdomen and passing gas, however denies a solid/significant BM since her surgery 09/30. Pt did get a glycerin supp earlier today with no results. New orders received (see NOV), and KUB for am.
--- NOTE | 2024-10-07 22:18 | EXP.EVENT.NO ---
Problem: Received a telephone call from the nurse. About the patient appearing to be more abdominal distended then in the past.. Patient has received 1 glycerin suppository at 2 PM today., Also KUB showing large amounts of dilated loops of bowel full of gas.. Patient denies nausea abdominal pain at this time.. Exam abdominal distention status post ileus and bowel surgery Plan will let patient continue clear liquids as there is no nausea or vomiting at this time. If that was to start would have to replace the NG. Will try 1 more of the glycerin suppositories now. And order another KUB for morning.. Since patient is stable at this time I do not feel we need to put an NG down or do any type of bowel decompression, unless the patient started to have active symptoms of pain nausea or vomiting. 01:00 nursing notified me that the patient was able to have a bowel movement, color but with some solid chunks. Abdomen remains distended but patient is in no pain no nausea
[2024-10-08] VITALS (14 sets, daily range): BP systolic 127–158; BP diastolic 64–87; PULSE 88–116; RESP 16–18; TEMP 36.4–36.8; O2SAT 93–98
[2024-10-08] MEDS: DIATRIZOATE MEG 66% & DIATRIZOATE NA 10% 30ML UDC 30 ML PO (05:07)
--- NOTE | 2024-10-08 05:11 | HMH.ITSTN ---
Patient finished drinking gastrografin at 5:01 am
--- NOTE | 2024-10-08 05:24 | PC.NURSE ---
Pt is alert and oriented x4. Pt has c/o moderate to severe incision and abdominal pain this shift and has been treated per MAR. Pt abdomen was distended upon initial assessment and MD was made aware, glycerin supp was given at that time and pt did have a med sized BM that was black and tarry. Pt abdomen currently seems to have slightly softened but remains distended. Pt admits to feeling better this am, and reports another small BM. Pt midline incision remains clean and dry and open to air. Pt RADHA drain has had 110ml of yellow colored output this shift.
--- NOTE | 2024-10-08 06:00 | CT_ITS ---
FINAL REPORT TECHNIQUE: After the administration of oral and intravenous contrast, axial images were obtained through the abdomen and pelvis by computed tomography. The study was performed with techniques to keep radiation dose as low as reasonably achievable, (ALARA). Individual dose reduction techniques using automated exposure control or adjustment of mA and/or kV according to the patient's size were employed. CLINICAL HISTORY: Follow-up postop intra-abdominal fluid collections COMPARISON: 10/05/2024 FINDINGS: Abdomen: There is a moderate right lower lobe consolidation and small bilateral pleural effusions which have improved slightly since the prior exam. There is persistent intraperitoneal free air, particularly anterior to the liver. There are several subcapsular fluid collections, largest in the medial inferior aspect of the right lobe of the liver measuring 6.1 x 5.1 cm. Surgical drain is present in the upper abdomen. There is redemonstration of multiple benign-appearing cysts in the liver measuring up to 3.2 cm in the right lobe, stable. The gallbladder appears to be present. The gallbladder wall is mildly thickened measuring up to 5 mm. The spleen, pancreas, adrenals and kidneys appear unremarkable. The aorta is normal in caliber. There is no free fluid or adenopathy. Pelvis: The appendix is not identified. Again noted are multiple fluid-filled distended loops of small bowel measuring up to 3 cm in diameter. The urinary bladder is unremarkable. The uterus is present and lies midline. There is no free fluid or adenopathy. IMPRESSION: Improved bilateral pleural effusions and right lower lobe consolidation. Dominant fluid collection in the medial right lobe of the liver. Thickened gallbladder wall. Surgical drain in the upper abdomen. Intraperitoneal free air, probably related to recent surgery and or presence of drain. Reviewed, Interpreted and Dictated by Hany Villa MD Transcribed by Shae Pearce Authenticated and [facility]
[2024-10-08 06:22] LABS: Basophils # 0.1 K/mm3 (0-0.2); Basophils % 0.4 % (0.1-2.0); Eosinophils # 0.1 K/mm3 (0.0-0.4); Eosinophils % 0.6 % (0.1-12.0); Hemoglobin 9.9 g/dL (12.2-16.2); Lymphocytes % 13.6 % (10-50); Mean Corpuscular Hemoglobin 29.2 pg (27.0-31.2); Mean Corpuscular Volume 88.5 fl (81-99); Mean Platelet Volume 10.2 fl (7.4-10.4); Monocytes # 1.5 K/mm3 (0.1-1.0); Monocytes % 10.2 % (1.7-9.3); Neutrophils # 10.3 K/mm3 (1.8-7.8); Neutrophils % 71.5 % (37.0-80.0); Platelet Count 571 K/mm3 (142-424); Red Blood Count 3.39 M/mm3 (4.20-5.40); Red Cell Distribution Width 14.1 % (11.5-17.5); White Blood Count 14.4 K/mm3 (4.8-10.8)
[2024-10-08 06:43] LABS: Alanine Aminotransferase 29 U/L (12-78); Albumin Level 2.5 g/dl (3.5-5.0); Alkaline Phosphatase 109 U/L (38-126); Anion Gap 9.3 mEq/L (5-15); Aspartate Amino Transferase 45 U/L (14-36); Bilirubin,Total 0.5 mg/dl (0.2-1.3); Blood Urea Nitrogen 8 mg/dl (7-17); Calcium 8.2 mg/dl (8.4-10.2); Carbon Dioxide 31 mmol/L (22.0-30.0); Chloride 97 mmol/L (98-107); Creatinine Clearance Estimated 44 mL/min (50-200); Estimated Glomerular Filt Rate 82 ml/min (>60); GFR (African American) 99 ML/MIN (>60); Globulin 2.6 g/dL (1.3-3.2); Glucose 125 mg/dl (74-100); Magnesium 1.9 mg/dl (1.6-2.3); Potassium 4.3 mmoL/L (3.5-5.1); Sodium 133 mmol/L (136-145); Total Protein,Serum 5.1 g/dl (6.3-8.2)
--- NOTE | 2024-10-08 06:50 | P.PN_ITS ---
Subjective Narrative: Patient has had no new complaints. Given glycerin suppository due to abdominal distention last night. Has had a couple bowel movements overnight. No nausea. No abdominal pain. White blood cell count improving to 14,000. Exam Data for Last 24 hours Vital signs and Labs for Last 24 Hours: Temp Pulse Resp BP Pulse Ox O2 Del Method O2 Flow Rate 98.3 F 98 H 16 129/69 93 L Room Air 93 10/08/24 04:00 10/08/24 04:00 10/08/24 04:00 10/08/24 04:00 10/08/24 04:00 10/08/24 05:00 10/06/24 23:43 Laboratory Results - last 24 hr 10/07/24 06:16: WBC 17.6 H, RBC 3.43 L, Hgb 10.1 L D, Hct 30.5 L, MCV 88.9, MCH 29.4, MCHC 33.1, RDW 14.5, Plt Count 540 H, MPV 10.7 H, Neut % (Auto) 73.7, Lymph % (Auto) 11.4, [place] % (Auto) 9.2, Eos % (Auto) 0.9, Baso % (Auto) 0.3, Neut # (Auto) 13.0 H, Lymph # (Auto) 2.0, [place] # (Auto) 1.6 H, Eos # (Auto) 0.2, Baso # (Auto) 0.1, Total Counted 100, Neutrophils % (Manual) 81 H, Lymphocytes % (Manual) 15, Monocytes % (Manual) 4, Platelet Estimate Moderate increase, RBC Morphology Normal 10/08/24 06:12: WBC 14.4 H, RBC 3.39 L, Hgb 9.9 L, Hct 30.0 L, MCV 88.5, MCH 29.2, MCHC 33.0, RDW 14.1, Plt Count 571 H, MPV 10.2, Neut % (Auto) 71.5, Lymph % (Auto) 13.6, [place] % (Auto) 10.2 H, Eos % (Auto) 0.6, Baso % (Auto) 0.4, Neut # (Auto) 10.3 H, Lymph # (Auto) 2.0, [place] # (Auto) 1.5 H, Eos # (Auto) 0.1, Baso # (Auto) 0.1, Sodium 133 L, Potassium 4.3, Chloride 97 L, Carbon Dioxide 31 H, Anion Gap 9.3, BUN 8, Creatinine 0.70, Estimated Creat Clear 44, Estimated GFR 82, Est GFR ( Amer) 99, Glucose 125 H D, Calcium 8.2 L, Magnesium 1.9, Total Bilirubin 0.5, AST 45 H, ALT 29, Alkaline Phosphatase 109, Total Protein 5.1 L, Albumin 2.5 L, Globulin 2.6, Albumin/Globulin Ratio 1.0 L I & O for Last 24 hours: Intake & Output 10/05/24 10/06/24 10/07/24 10/08/24 11:59 11:59 11:59 11:59 Intake Total 1430 / 1430 1300 / 1300 1880 / 1880 1120 / 1120 Output Total 210 / 210 180 / 180 90 / 90 70 / 70 Balance 1220 / 1220 1120 / 1120 1790 / 1790 1050 / 1050 Weight 53 lb 6.4 oz 130 lb 125 lb 124 lb 15.857 oz Microbiology Reports for the Last 24 Hours: Microbiology 10/05/24 09:44 Blood Blood Culture - Preliminary NO GROWTH AFTER 48 HOURS 10/05/24 09:39 Blood Blood Culture - Preliminary NO GROWTH AFTER 48 HOURS *Routine Abdominal Exam Comments: Distended. Nontender. Incision clean and intact. RADHA drain with very thin serous fluid. Progress Note: A&P Assessment and plan (1) Gastric perforation: Status: Acute Assessment and plan: Follow-up CT today for possible aspiration or drain. (2) Elevated brain natriuretic peptide (BNP) level: Status: Acute (3) Elevated troponin I level: Status: Acute (4) Hypertension: Status: Chronic (5) Hyperlipidemia: Status: Chronic (6) Arthralgia: Status: Acute
[2024-10-08] MEDS: SODIUM CHLORIDE 0.9% 10ML SYR (RAD ONLY) 10 ML IV (06:55)
[2024-10-08] MEDS: IOPAMIDOL-370 (76%);100ML BOTTLE 75 ML IV (06:55)
[2024-10-08] MEDS: MAGNESIUM SULFATE IN WATER 2 GM/50 ML PIGGYBACK IV (08:22)
--- NOTE | 2024-10-08 08:42 | CT_ITS ---
FINAL REPORT CLINICAL HISTORY: Daniela-hepatic fluid collection FINDINGS: CT GUIDED DRAIN PLACEMENT HISTORY: Abdominal fluid collection ATTENDING PHYSICIAN: Dr. Villa PHYSICIAN GOSPEL WORKER: ORQUIDEA Barnett PROCEDURE: After informed consent was obtained and a timeout was performed, the patient was prepped and draped in usual sterile fashion over the abdomen. Utilizing local anesthesia and sterile technique with a catheter access needle, access to the fluid collection was obtained. An Amplatz wire was placed. Serial dilatation was performed. A 10 [place] pigtail catheter was placed looped in the fluid collection. Post drain placement films demonstrate the catheter in good position. The patient received mild procedural sedation. The patient tolerated the procedure well and left the department in good condition. IMPRESSION: Status post CT guided percutaneous drain placement without immediate complication PROCEDURAL SEDATION: 2 mg of IV Versed and 50 mcg of Fentanyl were administered. Continuous vital sign monitoring was used. An RN was present during the sedation process. Overall sedation time was 30 minutes. . Films reviewed , interpreted and dictated by Dr. Villa. Transcribed by Maxwell Bonner PA-C. Reviewed, Interpreted and Dictated by Hany Villa MD Transcribed by THERESA Barnett Authenticated and . [facility]
[2024-10-08] MEDS: LIDOCAINE 1% 10ML MDV 5 ML IJ (09:26)
[2024-10-08] MEDS: OXYCODONE 5MG IMMEDIATE RELEASE TABLET 5 MG PO ×2 (09:28→20:02)
[2024-10-08] MEDS: SIMETHICONE 80MG CHEWABLE TABLET 160 MG PO ×3 (09:55→20:03)
[2024-10-08] MEDS: PANTOPRAZOLE 40MG TABLET 40 MG PO ×2 (09:55→20:02)
[2024-10-08] MEDS: POTASSIUM CHLORIDE 20MEQ/15ML UDC 40 MEQ PO ×2 (09:55→20:02)
[2024-10-08] MEDS: MEROPENEM 1 GM in 0.9 % SODIUM CHLORIDE 100 ML IV ×2 (10:19→20:02)
[2024-10-08] MEDS: MORPHINE 2MG/ML SYRINGE 1 MG IV (11:53)
--- NOTE | 2024-10-08 16:36 | EXP.PN ---
Subjective *Date: 10/08/24 *Time: 16:36 Interval history: Tolerated IR procedure well today, continue CLD for ileus. Hopefuly ileus will improved after abscess has been drained today. Exam Data for Last 24 hours Vital signs and Labs for Last 24 Hours: Temp Pulse Resp BP Pulse Ox O2 Del Method O2 Flow Rate 98.0 F 97 H 16 134/87 97 Room Air 93 10/08/24 13:20 10/08/24 13:20 10/08/24 13:20 10/08/24 13:20 10/08/24 13:20 10/08/24 13:20 10/06/24 23:43 Laboratory Results - last 24 hr 10/08/24 06:12: WBC 14.4 H, RBC 3.39 L, Hgb 9.9 L, Hct 30.0 L, MCV 88.5, MCH 29.2, MCHC 33.0, RDW 14.1, Plt Count 571 H, MPV 10.2, Neut % (Auto) 71.5, Lymph % (Auto) 13.6, [place] % (Auto) 10.2 H, Eos % (Auto) 0.6, Baso % (Auto) 0.4, Neut # (Auto) 10.3 H, Lymph # (Auto) 2.0, [place] # (Auto) 1.5 H, Eos # (Auto) 0.1, Baso # (Auto) 0.1, Sodium 133 L, Potassium 4.3, Chloride 97 L, Carbon Dioxide 31 H, Anion Gap 9.3, BUN 8, Creatinine 0.70, Estimated Creat Clear 44, Estimated GFR 82, Est GFR ( Amer) 99, Glucose 125 H D, Calcium 8.2 L, Magnesium 1.9, Total Bilirubin 0.5, AST 45 H, ALT 29, Alkaline Phosphatase 109, Total Protein 5.1 L, Albumin 2.5 L, Globulin 2.6, Albumin/Globulin Ratio 1.0 L I & O for Last 24 hours: Intake & Output 10/05/24 10/06/24 10/07/24 10/08/24 23:59 23:59 23:59 23:59 Intake Total 1430 / 1530 1820 / 1820 1760 / 1760 240 / 240 Output Total 340 / 390 100 / 100 110 / 110 0 / 0 Balance 1090 / 1140 1720 / 1720 1650 / 1650 240 / 240 Weight 24.222 kg 58.967 kg 56.699 kg 56.695 kg Constitutional Constitutional: no acute distress *Routine HEENT Exam Head: Present normocephalic Eye: Present EOMI and PERRL ENT: Present mucous membranes moist *Routine Neck Exam Neck: Present supple; Absent lymphadenopathy *Routine Respiratory Exam Respiratory: Present CTA bilaterally *Routine Cardiovascular Exam Cardiovascular: Present RRR *Routine Abdominal Exam Abdominal: Present soft and normoactive bowel sounds; Absent tenderness Comments: Distended. Nontender. Incision clean and intact. RADHA drain with very thin serous fluid. *Routine Extremities Exam Extremities: Absent cyanosis, clubbing or edema *Routine Skin Exam Skin: Present warm; Absent rash *Routine Neurological Exam Neurological: Present alert and oriented X3 Assessment and Plan *Assessment and plan (1) Gastric perforation: Status: Acute Category: Medical Code(s): K25.5 - Chronic or unspecified gastric ulcer with perforation (2) Elevated brain natriuretic peptide (BNP) level: Status: Acute Category: Medical Code(s): R79.89 - Other specified abnormal findings of blood chemistry (3) Elevated troponin I level: Status: Acute Category: Medical Code(s): R79.89 - Other specified abnormal findings of blood chemistry (4) Hypertension: Status: Chronic Qualifiers: Hypertension type: primary hypertension Qualified Code(s): I10 - Essential (primary) hypertension Category: Medical Code(s): I10 - Essential (primary) hypertension (5) Hyperlipidemia: Status: Chronic Qualifiers: Hyperlipidemia type: mixed hyperlipidemia Qualified Code(s): E78.2 - Mixed hyperlipidemia Category: Medical Code(s): E78.5 - Hyperlipidemia, unspecified (6) Arthralgia: Status: Acute Qualifiers: Joint pain location: other joint Qualified Code(s): M25.59 - Pain in other specified joint Category: Medical Code(s): M25.50 - Pain in unspecified joint Plan Ms. Clements presented with one week of escalating gastrointestinal symptoms and imaging suspicious for free air in the abdomen. Labs demonstrated leukocytosis (WBC 16.2 K/?L), elevated procalcitonin (3.83 ng/mL), and electrolyte abnormalities (hypokalemia and hypomagnesemia). Initial management included IV fluids given concern for potential sepsis due to tachycardia and elevated procalcitonin, alongside antiemetics and analgesics. CT imaging confirmed likely gastric/duodenal perforation, and General Surgery was consulted for urgent intervention. Intraoperatively, a large anterior duodenal perforation near the pyloric channel with well-established peritonitis was identified and addressed. Patient doing well today. Continue full liquid diet. Continues to require in-patient management. Having bowel movements. Problems addressed as follows: Anterior Duodenal Perforation Abdominal pain Nausea and vomiting #Sepsis #Ileus - Found to have abrasion in stomach. Closed in the OR 09/29/2024. Continue antibiotics for the time being. Monitoring RADHA output, currently minimal and serous. ? Repeat CT abdomen/pelvis 10/05/2024 revealed fluid collection along the liver margin, cannot rule out subscapular abscess. After discussion with surgery, reached out to IR team who recommended repeating CT abdomen/pelvis tomorrow to further evaluate progression of fluid collections for possible IR guided drainage. This may lead to improvement in ileus. - IR consulted, s/p drainage of ~100cc purulent drainage from sariah-hepatic abscess. Hopeful ileus will improve after this drainage. - WBC improved to 14 today, continues to be slighly tachycardic 104. - Continue meropenem today, had discontinued Zosyn. - Continue pain control, transition off IV pain medication to p.o. hydrocodone every 4-6 hours as needed for severe pain. Monitoring for toxicity. - Continue pantoprazole 40 mg IV twice daily. Monitoring for improvement in bowel function prior to advancing diet. - Continue clear liquid diet until ileus improves. - Nausea and vomiting resolved. Zofran as needed every 8 hours Full code VTE prophylaxis with SCDs Pantoprazole as above
[2024-10-08] MEDS: PRAVASTATIN 20MG TAB 20 MG PO (20:03)
[2024-10-09] VITALS (8 sets, daily range): BP systolic 122–139; BP diastolic 63–76; PULSE 87–95; RESP 16–18; TEMP 36.4–37.7; O2SAT 94–100; BMI 19.3
--- NOTE | 2024-10-09 04:07 | PC.NURSE ---
Pt c/o pain @ HS and was treated per NOV. Pt now denies pain and reports x2 bowel movements this shift. Pt abdomen remains soft and moderately distended however has decreased in the past 24 hours. Pt drain and dressing is still intact and has had minimal drainage of off white to cream colored drainage. Pt has been mobile and ambulated this shift and has had no acute changes to note.
[2024-10-09 07:09] LABS: Basophils # 0.1 K/mm3 (0-0.2); Basophils % 0.6 % (0.1-2.0); Eosinophils # 0.1 K/mm3 (0.0-0.4); Eosinophils % 0.6 % (0.1-12.0); Hematocrit 27.6 % (37.0-47.0); Hemoglobin 9.1 g/dL (12.2-16.2); Lymphocytes # 1.9 K/mm3 (0.7-4.5); Mean Corpuscular Hemoglobin 29.2 pg (27.0-31.2); Mean Corpuscular Volume 88.5 fl (81-99); Mean Platelet Volume 10.2 fl (7.4-10.4); Monocytes # 1.4 K/mm3 (0.1-1.0); Monocytes % 11.3 % (1.7-9.3); Neutrophils # 8.7 K/mm3 (1.8-7.8); Neutrophils % 69.8 % (37.0-80.0); Platelet Count 634 K/mm3 (142-424); Red Blood Count 3.12 M/mm3 (4.20-5.40); Red Cell Distribution Width 14.2 % (11.5-17.5); White Blood Count 12.4 K/mm3 (4.8-10.8)
--- NOTE | 2024-10-09 07:18 | EXP.SURG.PN ---
Subjective Patient reports: no new complaints, feels better, flatus and bowel movement Narrative: She feels much less bloated . Exam Data for Last 24 hours Vital signs and Labs for Last 24 Hours: Temp Pulse Resp BP Pulse Ox O2 Del Method O2 Flow Rate 98.3 F 88 16 130/63 98 Room Air 93 10/09/24 04:00 10/09/24 04:00 10/09/24 04:00 10/09/24 04:00 10/09/24 04:00 10/09/24 06:56 10/06/24 23:43 Laboratory Results - last 24 hr 10/09/24 06:49: WBC 12.4 H, RBC 3.12 L, Hgb 9.1 L, Hct 27.6 L, MCV 88.5, MCH 29.2, MCHC 33.0, RDW 14.2, Plt Count 634 H, MPV 10.2, Neut % (Auto) 69.8, Lymph % (Auto) 15.0, [place] % (Auto) 11.3 H, Eos % (Auto) 0.6, Baso % (Auto) 0.6, Neut # (Auto) 8.7 H, Lymph # (Auto) 1.9, [place] # (Auto) 1.4 H, Eos # (Auto) 0.1, Baso # (Auto) 0.1 I & O for Last 24 hours: Intake & Output 10/06/24 10/07/24 10/08/24 10/09/24 11:59 11:59 11:59 11:59 Intake Total 1300 / 1300 1880 / 1880 1360 / 1360 960 / 960 Output Total 180 / 180 90 / 90 70 / 70 0 / 0 Balance 1120 / 1120 1790 / 1790 1290 / 1290 960 / 960 Weight 130 lb 125 lb 124 lb 15.857 oz 120 lb Constitutional Constitutional: no acute distress *Routine Respiratory Exam Respiratory: Absent respiratory distress *Routine Abdominal Exam Abdominal: Present soft Comments: Incision healing without evidence of infection. Percutaneous drain in place. Progress Note: A&P Assessment and plan (1) Gastric perforation: Status: Acute Assessment and plan: Overall, doing well status post operative repair (2) Leukocytosis: Status: Acute Assessment and plan: Improving (3) Postoperative ileus: Status: Acute Assessment and plan: Significantly improved status post drainage of intra-abdominal abscess (4) Intra-abdominal abscess post-procedure: Status: Acute Assessment and plan: Doing well status post percutaneous drainage. Complete course of antibiotics Continue drain management
[2024-10-09] MEDS: MORPHINE 2MG/ML SYRINGE 1 MG IV ×3 (07:32→22:58)
[2024-10-09 07:42] LABS: Chloride 100 mmol/L (98-107)
[2024-10-09 07:43] LABS: Albumin Level 2.5 g/dl (3.5-5.0); Potassium 4.1 mmoL/L (3.5-5.1); Sodium 133 mmol/L (136-145)
[2024-10-09 07:45] LABS: Blood Urea Nitrogen 7 mg/dl (7-17); Creatinine Clearance Estimated 42 mL/min (50-200); Estimated Glomerular Filt Rate 98 ml/min (>60); GFR (African American) 118 ML/MIN (>60)
[2024-10-09 07:46] LABS: Alanine Aminotransferase 27 U/L (12-78); Alkaline Phosphatase 96 U/L (38-126); Anion Gap 9.1 mEq/L (5-15); Aspartate Amino Transferase 41 U/L (14-36); Bilirubin,Total 0.5 mg/dl (0.2-1.3); Calcium 7.8 mg/dl (8.4-10.2); Carbon Dioxide 28 mmol/L (22.0-30.0); Globulin 2.5 g/dL (1.3-3.2); Glucose 99 mg/dl (74-100); Magnesium 1.8 mg/dl (1.6-2.3)
--- NOTE | 2024-10-09 08:56 | P.PN_ITS ---
Subjective *Date: 10/09/24 *Time: 08:56 Medical Exam Vital signs and Labs for Last 24 Hours: Vital Signs Temp Pulse Resp BP Pulse Ox O2 Del Method 10/09/24 06:56 Room Air 10/09/24 05:00 Room Air 10/09/24 04:00 98.3 F 88 16 130/63 98 Room Air 10/09/24 02:58 Room Air 10/09/24 01:00 Room Air 10/09/24 00:00 98.5 F 89 16 137/76 95 Room Air 10/08/24 23:00 Room Air 10/08/24 21:00 Room Air 10/08/24 20:07 97.8 F 108 H 17 139/64 98 Room Air 10/08/24 19:37 Room Air 10/08/24 19:00 Room Air 10/08/24 17:00 Room Air 10/08/24 16:00 97.6 F 116 H 16 152/82 H 97 Room Air 10/08/24 15:00 Room Air 10/08/24 13:20 98.0 F 97 H 16 134/87 97 Room Air 10/08/24 13:00 Room Air 10/08/24 12:20 88 16 134/70 94 L Room Air 10/08/24 11:20 89 18 153/82 H 96 Room Air 10/08/24 11:00 Room Air 10/08/24 10:50 91 H 16 144/77 H 95 Room Air 10/08/24 10:20 92 H 16 127/68 96 Room Air 10/08/24 10:05 93 H 16 153/74 H 95 Room Air 10/08/24 09:50 97.9 F 91 H 16 150/79 H 96 Room Air 10/08/24 09:35 97 H 18 158/81 H 97 Room Air 10/08/24 09:20 97.6 F 100 H 18 148/70 H 97 Room Air Intake and Output 10/08/24 10/09/24 10/09/24 23:59 07:59 15:59 Intake Total 960 / 1200 Output Total 0 / 0 Balance 960 / 1200 0 / 0 Intake: Intake, Oral Amount 860 / 1100 Intake, Total IV Amount 100 / 100 Meropenem 0.5 gm In 0.9 % 100 / 100 Sodium Chloride 100 ml @ 100 mls/hr IV Q12H [facility] Rx#:[id number] Output: Output, Urine Amount 0 / 0 Other: Number of Unmeasured Voids 1 Number of Bowel Movements 1 Weight 54.431 kg Patient Weight 10/09/24 23:59 Weight 54.431 kg Laboratory Results - last 24 hr 10/09/24 06:49: WBC 12.4 H, RBC 3.12 L, Hgb 9.1 L, Hct 27.6 L, MCV 88.5, MCH 29.2, MCHC 33.0, RDW 14.2, Plt Count 634 H, MPV 10.2, Neut % (Auto) 69.8, Lymph % (Auto) 15.0, [place] % (Auto) 11.3 H, Eos % (Auto) 0.6, Baso % (Auto) 0.6, Neut # (Auto) 8.7 H, Lymph # (Auto) 1.9, [place] # (Auto) 1.4 H, Eos # (Auto) 0.1, Baso # (Auto) 0.1, Sodium 133 L, Potassium 4.1, Chloride 100, Carbon Dioxide 28, Anion Gap 9.1, BUN 7, Creatinine 0.60, Estimated Creat Clear 42, Estimated GFR 98, Est GFR ( Amer) 118, Glucose 99, Calcium 7.8 L, Magnesium 1.8, Total Bilirubin 0.5, AST 41 H, ALT 27, Alkaline Phosphatase 96, Total Protein 5.0 L, Albumin 2.5 L, Globulin 2.5, Albumin/Globulin Ratio 1.0 L I & O for Labs for Last 24 Hours: Intake & Output 10/06/24 10/07/24 10/08/24 10/09/24 23:59 23:59 23:59 23:59 Intake Total 1820 / 1820 1760 / 1760 1200 / 1200 Output Total 100 / 100 110 / 110 0 / 0 0 / 0 Balance 1720 / 1720 1650 / 1650 1200 / 1200 0 / 0 Weight 58.967 kg 56.699 kg 56.695 kg 54.431 kg The patient's infection will respond to the chosen ABx?: Yes (ABX DEESCALATED FROM MEROPENEM TO LEVAQUIN/FLAGYL THIS MORNING.) Is the patient receiving the right drug, dose, and route?: Yes Could a more targeted ABx be ordered?: Yes (ABX DEESCALATED FROM MEROPENEM TO LEVAQUIN/FLAGYL THIS MORNING.)
[2024-10-09] MEDS: metroNIDAZOLE 500 MG TABLET PO ×3 (09:22→21:10)
[2024-10-09] MEDS: PANTOPRAZOLE 40MG TABLET 40 MG PO ×2 (09:22→21:10)
[2024-10-09] MEDS: MAGNESIUM SULFATE IN WATER 2 GM/50 ML PIGGYBACK IV (09:22)
[2024-10-09] MEDS: POTASSIUM CHLORIDE 20MEQ/15ML UDC 40 MEQ PO ×2 (09:22→21:10)
[2024-10-09] MEDS: SIMETHICONE 80MG CHEWABLE TABLET 160 MG PO ×3 (09:22→21:10)
--- NOTE | 2024-10-09 10:28 | PC.NURSE ---
per surgeon orders, ~1/2 lul removed from midline incision and replaced with steri strips. pt tolerated well. 6 lul removed and 6 lul remain in the incision.
[2024-10-09] MEDS: LIDOCAINE 5% TRANSDERMAL PATCH 1 EACH TP (12:33)
[2024-10-09] MEDS: levoFLOXacin 750 MG TABLET PO (12:34)
--- NOTE | 2024-10-09 15:26 | EXP.PN ---
Subjective *Date: 10/09/24 *Time: 15:26 Interval history: Patient's distention has significantly improved since draining perihepatic abscess yesterday. Feels better. Having bowel movements. Will advance to full liquid diet, then low residue diet if good tolerance. Switched to oral levofloxacin and Flagyl, discontinue meropenem. Anticipate discharge in the morning if patient continues to improve with this regimen. Exam Data for Last 24 hours Vital signs and Labs for Last 24 Hours: Temp Pulse Resp BP Pulse Ox O2 Del Method O2 Flow Rate 98.2 F 88 18 122/73 96 Room Air 93 10/09/24 12:00 10/09/24 12:00 10/09/24 12:00 10/09/24 12:00 10/09/24 12:10/09/24 13:00 10/06/24 23:43 Laboratory Results - last 24 hr 10/09/24 06:49: WBC 12.4 H, RBC 3.12 L, Hgb 9.1 L, Hct 27.6 L, MCV 88.5, MCH 29.2, MCHC 33.0, RDW 14.2, Plt Count 634 H, MPV 10.2, Neut % (Auto) 69.8, Lymph % (Auto) 15.0, [place] % (Auto) 11.3 H, Eos % (Auto) 0.6, Baso % (Auto) 0.6, Neut # (Auto) 8.7 H, Lymph # (Auto) 1.9, [place] # (Auto) 1.4 H, Eos # (Auto) 0.1, Baso # (Auto) 0.1, Sodium 133 L, Potassium 4.1, Chloride 100, Carbon Dioxide 28, Anion Gap 9.1, BUN 7, Creatinine 0.60, Estimated Creat Clear 42, Estimated GFR 98, Est GFR ( Amer) 118, Glucose 99, Calcium 7.8 L, Magnesium 1.8, Total Bilirubin 0.5, AST 41 H, ALT 27, Alkaline Phosphatase 96, Total Protein 5.0 L, Albumin 2.5 L, Globulin 2.5, Albumin/Globulin Ratio 1.0 L I & O for Last 24 hours: Intake & Output 10/06/24 10/07/24 10/08/24 10/09/24 23:59 23:59 23:59 23:59 Intake Total 1820 / 1820 1760 / 1760 1200 / 1200 1440 / 1440 Output Total 100 / 100 110 / 110 0 / 0 0 / 0 Balance 1720 / 1720 1650 / 1650 1200 / 1200 1440 / 1440 Weight 58.967 kg 56.699 kg 56.695 kg 54.431 kg Microbiology Reports for the Last 24 Hours: Microbiology 10/05/24 09:44 Blood Blood Culture - Preliminary NO GROWTH AFTER 4 DAYS 10/05/24 09:39 Blood Blood Culture - Preliminary NO GROWTH AFTER 4 DAYS Constitutional Constitutional: no acute distress *Routine HEENT Exam Head: Present normocephalic Eye: Present EOMI and PERRL ENT: Present mucous membranes moist *Routine Neck Exam Neck: Present supple; Absent lymphadenopathy *Routine Respiratory Exam Respiratory: Present CTA bilaterally *Routine Cardiovascular Exam Cardiovascular: Present RRR *Routine Abdominal Exam Abdominal: Present soft and normoactive bowel sounds; Absent tenderness Comments: Distended. Nontender. Incision clean and intact. RADHA drain with very thin serous fluid. *Routine Extremities Exam Extremities: Absent cyanosis, clubbing or edema *Routine Skin Exam Skin: Present warm; Absent rash *Routine Neurological Exam Neurological: Present alert and oriented X3 Assessment and Plan *Assessment and plan (1) Gastric perforation: Status: Acute Category: Medical Code(s): K25.5 - Chronic or unspecified gastric ulcer with perforation (2) Elevated brain natriuretic peptide (BNP) level: Status: Acute Category: Medical Code(s): R79.89 - Other specified abnormal findings of blood chemistry (3) Elevated troponin I level: Status: Acute Category: Medical Code(s): R79.89 - Other specified abnormal findings of blood chemistry (4) Hypertension: Status: Chronic Qualifiers: Hypertension type: primary hypertension Qualified Code(s): I10 - Essential (primary) hypertension Category: Medical Code(s): I10 - Essential (primary) hypertension (5) Hyperlipidemia: Status: Chronic Qualifiers: Hyperlipidemia type: mixed hyperlipidemia Qualified Code(s): E78.2 - Mixed hyperlipidemia Category: Medical Code(s): E78.5 - Hyperlipidemia, unspecified (6) Arthralgia: Status: Acute Qualifiers: Joint pain location: other joint Qualified Code(s): M25.59 - Pain in other specified joint Category: Medical Code(s): M25.50 - Pain in unspecified joint Plan Ms. Starr presented with one week of escalating gastrointestinal symptoms and imaging suspicious for free air in the abdomen. Labs demonstrated leukocytosis (WBC 16.2 K/?L), elevated procalcitonin (3.83 ng/mL), and electrolyte abnormalities (hypokalemia and hypomagnesemia). Initial management included IV fluids given concern for potential sepsis due to tachycardia and elevated procalcitonin, alongside antiemetics and analgesics. CT imaging confirmed likely gastric/duodenal perforation, and General Surgery was consulted for urgent intervention. Intraoperatively, a large anterior duodenal perforation near the pyloric channel with well-established peritonitis was identified and addressed. Patient doing well today. Continue full liquid diet. Continues to require in-patient management. Having bowel movements. Problems addressed as follows: Anterior Duodenal Perforation Abdominal pain Nausea and vomiting #Sepsis #Ileus - Found to have abrasion in stomach. Closed in the OR 09/29/2024. Continue antibiotics for the time being. Monitoring RADHA output, currently minimal and serous. ? Repeat CT abdomen/pelvis 10/05/2024 revealed fluid collection along the liver margin, cannot rule out subscapular abscess. After discussion with surgery, reached out to IR team who recommended repeating CT abdomen/pelvis tomorrow to further evaluate progression of fluid collections for possible IR guided drainage. - IR consulted, s/p drainage of ~100cc purulent drainage from sariah-hepatic abscess. Ileus improving since then. ? General Surgery following, will advance to full liquid diet and then low residue diet if good tolerance. - WBC improved to 12.7 today, peaked to 27. ? Started oral levofloxacin and Flagyl, discontinue meropenem. If patient continues to do well with this regimen tomorrow, anticipate discharge. - Continue pain control, transition off IV pain medication to p.o. hydrocodone every 4-6 hours as needed for severe pain. Monitoring for toxicity. - Continue pantoprazole 40 mg IV twice daily. Monitoring for improvement in bowel function prior to advancing diet. - Nausea and vomiting resolved. Zofran as needed every 8 hours Full code VTE prophylaxis with SCDs Pantoprazole as above
--- NOTE | 2024-10-09 16:52 | PC.NURSE ---
pt up currently up to the chair. a&ox4. pt complained of pain intermittently throughout the shift and was medicated per MAR with verbalized relief. pt ambulates independently around the room and larson. pt tolerating ra with sats >90%. midline incision has 6 lul and 6 steri strips. incision open to air with no drainage or signs of redness. pt tolerating full liquid diet well and will be advanced to low residue for dinner. at bedside. no needs or complaints at this time. call light within reach.
[2024-10-09] MEDS: PRAVASTATIN 20MG TAB 20 MG PO (21:10)
--- NOTE | 2024-10-10 03:32 | PC.NURSE ---
Patient is alert and oriented x4. Patient was observed to have eyes closed, respirations even and unlabored on room air, and no apparent distress for the majority of the night. She has complained of abdominal pain this shift, but states that she is feeling much better, especially since her procedure Friday. Morphine was administered once thus far per NOV for her abdominal pain with reported relief. Other scheduled medications were administered as appropriately. Open-to-air midline incision remains beautifully intact; six lul remain (six removed during the previous shift), alternated with six steri-strips. Little to no drainage was observed in the accordion drain to the right side of her abdomen this shift. Abdomen slightly distended, is puffy, and soft with palpation. She continues to report passing gas and has been tolerating a low residual diet very well. Auscultation of her heart, bowels, and lungs were within normal findings. Vital signs have been stable this shift. Patient has been ambulating in her room/to the bathroom independently without difficulties. At this time, the patient is resting supine in bed with her at the bedside. No acute changes noted thus far. She does not have any further complaints. Call light within reach.
[2024-10-10 03:45] VITALS: BP 143/66; PULSE 91; RESP 16; TEMP 36.6; O2SAT 97
[2024-10-10 03:47] VITALS: BMI 19.3
[2024-10-10 06:51] LABS: Basophils # 0.1 K/mm3 (0-0.2); Basophils % 0.5 % (0.1-2.0); Eosinophils # 0.1 K/mm3 (0.0-0.4); Eosinophils % 0.8 % (0.1-12.0); Hematocrit 29.4 % (37.0-47.0); Hemoglobin 9.6 g/dL (12.2-16.2); Lymphocytes # 1.7 K/mm3 (0.7-4.5); Lymphocytes % 14.9 % (10-50); Mean Corpuscular HGB Conc 32.7 g/dL (31.8-35.4); Mean Corpuscular Volume 88.8 fl (81-99); Mean Platelet Volume 10.1 fl (7.4-10.4); Monocytes # 1.3 K/mm3 (0.1-1.0); Monocytes % 10.9 % (1.7-9.3); Neutrophils # 8.1 K/mm3 (1.8-7.8); Neutrophils % 70.6 % (37.0-80.0); Platelet Count 724 K/mm3 (142-424); Red Blood Count 3.31 M/mm3 (4.20-5.40); Red Cell Distribution Width 14.1 % (11.5-17.5); White Blood Count 11.5 K/mm3 (4.8-10.8)
[2024-10-10 07:13] LABS: Alanine Aminotransferase 26 U/L (12-78); Albumin Level 2.5 g/dl (3.5-5.0); Albumin/Globulin Ratio 0.9 (1.1-1.8); Alkaline Phosphatase 101 U/L (38-126); Anion Gap 8.2 mEq/L (5-15); Aspartate Amino Transferase 37 U/L (14-36); Bilirubin,Total 0.2 mg/dl (0.2-1.3); Blood Urea Nitrogen 11 mg/dl (7-17); Carbon Dioxide 30 mmol/L (22.0-30.0); Chloride 102 mmol/L (98-107); Creatinine Clearance Estimated 42 mL/min (50-200); Estimated Glomerular Filt Rate 98 ml/min (>60); GFR (African American) 118 ML/MIN (>60); Globulin 2.8 g/dL (1.3-3.2); Glucose 106 mg/dl (74-100); Magnesium 1.7 mg/dl (1.6-2.3); Potassium 4.2 mmoL/L (3.5-5.1); Sodium 136 mmol/L (136-145); Total Protein,Serum 5.3 g/dl (6.3-8.2)
[2024-10-10 08:00] VITALS: BP 158/79; PULSE 90; RESP 19; TEMP 36.4; O2SAT 97
[2024-10-10] MEDS: SIMETHICONE 80MG CHEWABLE TABLET 160 MG PO (08:24)
[2024-10-10] MEDS: metroNIDAZOLE 500 MG TABLET PO (08:24)
[2024-10-10] MEDS: PANTOPRAZOLE 40MG TABLET 40 MG PO (08:24)
[2024-10-10] MEDS: POTASSIUM CHLORIDE 20MEQ/15ML UDC 40 MEQ PO (08:24)
[2024-10-10] MEDS: ACETAMINOPHEN 325MG TAB 650 MG PO (08:49)
--- NOTE | 2024-10-10 10:14 | EXP.SURG.PN ---
Subjective Patient reports: feels better, flatus and bowel movement Exam Data for Last 24 hours Vital signs and Labs for Last 24 Hours: Temp Pulse Resp BP Pulse Ox O2 Del Method O2 Flow Rate 97.6 F 90 19 158/79 H 97 Room Air 93 10/10/24 08:00 10/10/24 08:00 10/10/24 08:00 10/10/24 08:00 10/10/24 08:00 10/10/24 09:00 10/06/24 23:43 Laboratory Results - last 24 hr 10/10/24 06:25: WBC 11.5 H, RBC 3.31 L, Hgb 9.6 L, Hct 29.4 L, MCV 88.8, MCH 29.0, MCHC 32.7, RDW 14.1, Plt Count 724 H, MPV 10.1, Neut % (Auto) 70.6, Lymph % (Auto) 14.9, [place] % (Auto) 10.9 H, Eos % (Auto) 0.8, Baso % (Auto) 0.5, Neut # (Auto) 8.1 H, Lymph # (Auto) 1.7, [place] # (Auto) 1.3 H, Eos # (Auto) 0.1, Baso # (Auto) 0.1, Sodium 136, Potassium 4.2, Chloride 102, Carbon Dioxide 30, Anion Gap 8.2, BUN 11 D, Creatinine 0.60, Estimated Creat Clear 42, Estimated GFR 98, Est GFR ( Amer) 118, Glucose 106 H, Calcium 8.0 L, Magnesium 1.7, Total Bilirubin 0.2, AST 37 H, ALT 26, Alkaline Phosphatase 101, Total Protein 5.3 L, Albumin 2.5 L, Globulin 2.8, Albumin/Globulin Ratio 0.9 L I & O for Last 24 hours: Intake & Output 10/07/24 10/08/24 10/09/24 10/10/24 11:59 11:59 11:59 11:59 Intake Total 1880 / 1880 1360 / 1360 1560 / 1560 1776 / 1776 Output Total 90 / 70 / 70 0 / 0 0 / 0 Balance 1790 / 1790 1290 / 1290 1560 / 1560 177 / 1776 Weight 125 lb 124 lb 15.857 oz 120 lb 120 lb Microbiology Reports for the Last 24 Hours: Microbiology 10/05/24 09:44 Blood Blood Culture - Final NO GROWTH AFTER 5 DAYS 10/05/24 09:39 Blood Blood Culture - Final NO GROWTH AFTER 5 DAYS Constitutional Constitutional: no acute distress *Routine Respiratory Exam Respiratory: Absent respiratory distress *Routine Abdominal Exam Abdominal: Present soft Comments: Incision healing without evidence of infection. Percutaneous drain in place. Purulent fluid in bag and accordion suction. Progress Note: A&P Assessment and plan (1) Gastric perforation: Status: Acute Assessment and plan: Overall, doing well status post operative repair (2) Leukocytosis: Status: Acute Assessment and plan: Continuing to improve (3) Postoperative ileus: Status: Acute Assessment and plan: Significantly improved status post drainage of intra-abdominal abscess (4) Intra-abdominal abscess post-procedure: Status: Acute Assessment and plan: Doing well status post percutaneous drainage. Complete course of antibiotics Continue drain management (patient teaching regarding maintaining accordion to suction completed) Assessment and Plan Assessment and Plan for All Diagnoses:: Okay from surgical standpoint for discharge home with close outpatient follow-up. She is to see Dr. Abbott on October 12.
--- NOTE | 2024-10-10 10:27 | P.DS_ITS ---
General Admission date:: 09/29/24 HPI HPI HPI: The patient is a 74-year-old female presenting with a one-week history of nausea, vomiting, diarrhea, and abdominal pain. She reports occasionally being able to keep down small amounts of water, but notes her pain has worsened today and she has been unable to tolerate any oral intake. She denies fever, chills, hemoptysis, hematochezia, melena, hematemesis, or hematuria. On arrival, her vital signs showed a blood pressure of 151/94 mmHg, heart rate of 125 bpm (sinus tachycardia on bedside monitor), respiratory rate of 18 breaths per minute, oxygen saturation of 98% on room air, and temperature of 97.9?F. Physical examination was notable for diffuse abdominal tenderness without rebound, guarding, or rigidity; bowel sounds were hypoactive. Her initial labs revealed an elevated white blood cell count of 16.2 K/?L and procalcitonin of 3.83 ng/mL, alongside hypokalemia (3.2 mEq/L) and hypomagnesemia (1.4 mg/dL). A CT scan of the abdomen and pelvis demonstrated evidence of free air, raising concern for a gastric or duodenal perforation; radiology confirmed likely gastric perforation. After initial management with IV fluids (for sepsis protocol), antiemetics, and analgesics, the patient remained normotensive but persistently tachycardic in the low 110s. General Surgery was consulted and took the patient for an exploratory procedure, where a large anterior duodenal perforation near the pyloric channel with peritonitis was identified and addressed. Post-operatively, she now reports moderate abdominal pain and mild nausea, both controlled with her current medication regimen. Exam Data for Last 24 hours Vital signs and Labs for Last 24 Hours: Temp Pulse Resp BP Pulse Ox O2 Del Method O2 Flow Rate 97.6 F 90 19 158/79 H 97 Room Air 93 10/10/24 08:00 10/10/24 08:00 10/10/24 08:00 10/10/24 08:00 10/10/24 08:00 10/10/24 09:00 10/06/24 23:43 Laboratory Results - last 24 hr 10/10/24 06:25: WBC 11.5 H, RBC 3.31 L, Hgb 9.6 L, Hct 29.4 L, MCV 88.8, MCH 29.0, MCHC 32.7, RDW 14.1, Plt Count 724 H, MPV 10.1, Neut % (Auto) 70.6, Lymph % (Auto) 14.9, [place] % (Auto) 10.9 H, Eos % (Auto) 0.8, Baso % (Auto) 0.5, Neut # (Auto) 8.1 H, Lymph # (Auto) 1.7, [place] # (Auto) 1.3 H, Eos # (Auto) 0.1, Baso # (Auto) 0.1, Sodium 136, Potassium 4.2, Chloride 102, Carbon Dioxide 30, Anion Gap 8.2, BUN 11 D, Creatinine 0.60, Estimated Creat Clear 42, Estimated GFR 98, Est GFR ( Amer) 118, Glucose 106 H, Calcium 8.0 L, Magnesium 1.7, Total Bilirubin 0.2, AST 37 H, ALT 26, Alkaline Phosphatase 101, Total Protein 5.3 L, Albumin 2.5 L, Globulin 2.8, Albumin/Globulin Ratio 0.9 L I & O for Last 24 hours: Intake & Output 10/07/24 10/08/24 10/09/24 10/10/24 23:59 23:59 23:59 23:59 Intake Total 1760 / 1760 1200 / 1200 1840 / 2140 536 / 536 Output Total 110 / 110 0 / 0 0 / 0 0 / 0 Balance 1650 / 1650 1200 / 1200 1840 / 2140 536 / 536 Weight 56.699 kg 56.695 kg 54.431 kg 54.431 kg Microbiology Reports for the Last 24 Hours: Microbiology 10/05/24 09:44 Blood Blood Culture - Final NO GROWTH AFTER 5 DAYS 10/05/24 09:39 Blood Blood Culture - Final NO GROWTH AFTER 5 DAYS Results Data Completed and Pending Labs on day of discharge: Labs from last 24 hours 10/10/24 06:25 WBC 11.5 H RBC 3.31 L Hgb 9.6 L Hct 29.4 L MCV 88.8 MCH 29.0 MCHC 32.7 RDW 14.1 Plt Count 724 H MPV 10.1 Neut % (Auto) 70.6 Lymph % (Auto) 14.9 [place] % (Auto) 10.9 H Eos % (Auto) 0.8 Baso % (Auto) 0.5 Neut # (Auto) 8.1 H Lymph # (Auto) 1.7 [place] # (Auto) 1.3 H Eos # (Auto) 0.1 Baso # (Auto) 0.1 Sodium 136 Potassium 4.2 Chloride 102 Carbon Dioxide 30 Anion Gap 8.2 BUN 11 D Creatinine 0.60 Estimated Creat Clear 42 Estimated GFR 98 Est GFR ( Amer) 118 Glucose 106 H Calcium 8.0 L Magnesium 1.7 Total Bilirubin 0.2 AST 37 H ALT 26 Alkaline Phosphatase 101 Total Protein 5.3 L Albumin 2.5 L Globulin 2.8 Albumin/Globulin Ratio 0.9 L DS: Diagnosis Discharge Diagnosis (1) Gastric perforation: Status: Acute Code(s): K25.5 - Chronic or unspecified gastric ulcer with perforation (2) Leukocytosis: Status: Acute Code(s): D72.829 - Elevated white blood cell count, unspecified (3) Postoperative ileus: Status: Acute Code(s): K91.89 - Other postprocedural complications and disorders of digestive system; K56.7 - Ileus, unspecified (4) Intra-abdominal abscess post-procedure: Status: Acute Code(s): T81.43XA - Infection following a procedure, organ and space surgical site, initial encounter; K65.1 - Peritoneal abscess Meds Home Medications and Allergies Home Medications ?Medication ?Instructions ?Recorded ?Confirmed ?Type lisinopril 20 mg tablet 20 mg PO DAILY #90 tabs 07/20/24 09/29/24 Rx multivitamin 1 tab PO DAILY 07/20/24 09/29/24 History pravastatin 20 mg tablet 20 mg PO HS 09/30/24 09/30/24 History levofloxacin 750 mg tablet 750 mg PO Q48H 5 days #3 tabs 10/10/24 Rx lidocaine 5 % topical patch 1 patch topical DAILY #15 ea 10/10/24 Rx metronidazole 500 mg tablet 500 mg PO TID 5 days #15 tabs 10/10/24 Rx oxycodone 5 mg tablet 5 mg PO Q4HP PRN Moderate Pain 10/10/24 Rx (4-6) 3 days #18 tabs pantoprazole 40 mg tablet,delayed 40 mg PO BID 30 days #60 tabs 10/10/24 Rx release New Prescriptions to Start Prescriptions: tungfloxacin Rubin,Ricky lidocaine PidRicky hughes metronidazole Ricky Conklin oxycodone Ricky Conklin pantoprazole Ricky Conklin Allergies Allergy/AdvReac Type Severity Reaction Status Date / Time No Known Allergies Allergy Verified 07/28/24 09:29 Discharge Plan Disposition Patient Disposition: Home, Self-Care Condition: Fair Discharge Order Discharge Orders: Discharge Order (Routine); Ordered 10/10/24 Ordered By: Ricky Conklin Follow up Plan Follow up with: Ridge Abbott MD [Staff Physician] - 10/12/24 Niharika Whittington APRN [Primary Care Provider] - 10/19/24 9:00 am Prescriptions/Medication Reconciliation: New metronidazole 500 mg Tablet 500 mg PO TID 5 Days Qty: 15 0RF pantoprazole 40 mg Tablet,Delayed Release (Dr/Ec) 40 mg PO BID 30 Days Qty: 60 0RF levofloxacin 750 mg Tablet 750 mg PO Q48H 5 Days Qty: 3 0RF lidocaine 5 % adhesive patch,medicated 1 patch topical DAILY Qty: 15 0RF Rx Instructions: leave on most painful area for up to 12 hrs oxycodone 5 mg Tablet 5 mg PO Q4HP PRN (Reason: Moderate Pain (4-6)) 3 Days Qty: 18 0RF Continued lisinopril 20 mg tablet 20 mg PO DAILY Qty: 90 3RF multivitamin Tablet 1 tab PO DAILY pravastatin 20 mg tablet 20 mg PO HS Problem Reconciliation Problems Reviewed?: Yes Patient Discharge Instructions Patient Instructions: DI for Exploratory Laparotomy, DI for Acute Abdominal Pain, DI for Surgical Site Infection Print Language: [place] Providers Primary Care Provider: Niharika Whittington Admit Provider: Nelson Mccoy Attending Provider: Nelson Mccoy
--- NOTE | 2024-10-11 10:39 | SW/DCPLANNER ---
Spoke with patient on the phone. Patient stated that she is doing well. Patient stated that she is aware of her appointments. Patient stated that her was able to picker box operator her medicine from [facility] for her. Patient stated that she has no concerns or questions at this time. Patient stated that she had excellent care while she was in the hospital. Gadiel Salter
== END 2024-10-10 11:21 | disposition home or self-care (01) | DRG 326 ==
LOC: ER 16:38 → SDC 17:38 → 2ND 19:19
PROVIDERS: Emergency Medicine; Nurse Practitioner Family; Physician Assistant; Student in an Organized Health Care Education/Training Program; Surgery; Admitting Provider Internal Medicine Adolescent Medicine; Emergency Provider Emergency Medicine; PCP Nurse Practitioner Family; Visit Provider Internal Medicine Adolescent Medicine
PROC: 0DQ90ZZ Repair Duodenum, Open Approach (ICD-10-PCS; CPT 49000; principal; 2024-09-29 17:30)
DX: K26.5 Chronic or unspecified duodenal ulcer with perforation (principal); K65.9 Peritonitis, unspecified; K91.89 Other postprocedural complications and disorders of digestive system; K56.7 Ileus, unspecified; R79.89 Other specified abnormal findings of blood chemistry; I10 Essential (primary) hypertension; E78.2 Mixed hyperlipidemia; M25.59 Pain in other specified joint
CPT/HCPCS: 36415; 71045; 74018; 74177; 74240; 75989; 80048; 80053; 81001; 83735; 84145; 84484; 85007; 85025; 86803; 87040; 87389; 97162; 97530; 99291; J3490; C1729; C1769; J1100; J1940; J2185; J2250; J2270; J2405; J2543; J3010; J3475; J3480; J7030; J7120; Q9963; Q9967

== ENCOUNTER 2024-10-21 09:02 | Outpatient (CLI) | payer MEDICARE, SELFPAY ==
--- NOTE | 2024-10-21 09:18 | CT_ITS ---
FINAL REPORT TECHNIQUE: Oral and IV contrast enhanced exam This study was performed with techniques to keep radiation doses as low as reasonably achievable, (ALARA). Individualized dose reduction techniques using automated exposure control or adjustment of mA and/or kV according to the patient''s size were employed. CLINICAL HISTORY: abscess COMPARISON: 10/08/2024 FINDINGS: Abdomen: There is significant improvement in the perihepatic fluid collections since the prior exam of October 08. There is a small fluid collection anterior to the liver and lateral to the gallbladder fossa, that measures up to 2 cm, and contains a small amount of air. This collection was previously 4 cm in size. There is a tiny air-fluid collection anterior to the hepatic dome, improved from the prior. The previously noted drain has been removed in the interval since the prior exam, and there is a new pigtail catheter adjacent to the liver that is not surrounded by fluid. There is a right anterior abdominal fluid collection seen on image #72, measuring 12 mm in size, that was probably present on the prior exam and is improved, although it was not as evident on the prior exam as it was surrounded by multiple fluid-filled loops of bowel. No biliary ductal dilatation is noted. The multiple hepatic cysts seen on the prior exam are stable in appearance. The spleen, pancreas, and adrenal glands are unremarkable. There is mild left hydronephrosis, stable when compared to the prior exam. No evidence of bowel obstruction is present. Pelvis: The pelvic bowel loops are unremarkable in appearance. The uterus is normal in appearance. The bladder is unremarkable. There is no significant mass or free fluid present in the pelvis. IMPRESSION: There has been significant improvement in the right upper quadrant abscesses since the prior exam of 10/08/2024. There is a small fluid collection in the anterior abdomen measuring 12 mm in size, that was probably present on the prior exam and appears improved, although it was not as evident as a separate fluid collection on the prior exam. No new abnormal densities or abscesses are identified. Stable mild left hydronephrosis. Reviewed, Interpreted and Dictated by Mallorie Hart MD Transcribed by Audrey Tobar Authenticated and [facility]
[2024-10-21] MEDS: SODIUM CHLORIDE 0.9% 10ML SYR (RAD ONLY) 10 ML IV (12:01)
[2024-10-21] MEDS: IOPAMIDOL-370 (76%);100ML BOTTLE 75 ML IV (12:01)
[2024-10-21] MEDS: DIATRIZOATE MEGLUMINE(GASTROGRAFIN) 66%-10% 120ML 20 ML PO (12:01)
== END 2024-10-21 23:59 | disposition home or self-care (01) ==
LOC: RAD 09:05
PROVIDERS: PCP Nurse Practitioner Family; Visit Provider Surgery
DX: K25.5 Chronic or unspecified gastric ulcer with perforation (principal)
CPT/HCPCS: 74177; Q9963; Q9967

== ENCOUNTER 2024-10-27 13:44 | Outpatient (CLI) | payer MEDICARE, SELFPAY ==
[2024-10-27 14:50] LABS: Basophils % 0.5 % (0.1-2.0); Eosinophils # 0.1 K/mm3 (0.0-0.4); Eosinophils % 1.3 % (0.1-12.0); Hematocrit 36.9 % (37.0-47.0); Hemoglobin 11.6 g/dL (12.2-16.2); Lymphocytes # 1.8 K/mm3 (0.7-4.5); Lymphocytes % 28.9 % (10-50); Mean Corpuscular HGB Conc 31.4 g/dL (31.8-35.4); Mean Corpuscular Hemoglobin 28.6 pg (27.0-31.2); Mean Corpuscular Volume 90.9 fl (81-99); Mean Platelet Volume 12.3 fl (7.4-10.4); Monocytes # 0.5 K/mm3 (0.1-1.0); Monocytes % 8.8 % (1.7-9.3); Neutrophils # 3.7 K/mm3 (1.8-7.8); Neutrophils % 60.3 % (37.0-80.0); Platelet Count 287 K/mm3 (142-424); Red Blood Count 4.06 M/mm3 (4.20-5.40); White Blood Count 6.1 K/mm3 (4.8-10.8)
[2024-10-27 16:27] LABS: Chloride 103 mmol/L (98-107)
[2024-10-27 16:28] LABS: Albumin Level 3.9 g/dl (3.5-5.0); Potassium 4.6 mmoL/L (3.5-5.1); Sodium 141 mmol/L (136-145)
[2024-10-27 16:31] LABS: Alanine Aminotransferase 18 U/L (12-78); Alkaline Phosphatase 58 U/L (38-126); Anion Gap 12.6 mEq/L (5-15); Aspartate Amino Transferase 28 U/L (14-36); Bilirubin,Direct 0.1 mg/dl (0.0-0.4); Bilirubin,Indirect 0.3 mg/dL (0.0-0.9); Bilirubin,Total 0.4 mg/dl (0.2-1.3); Bilirubin,Unconjugated 0.3 mg/dL (0.0-1.1); Blood Urea Nitrogen 20 mg/dl (7-17); Carbon Dioxide 30 mmol/L (22.0-30.0); Estimated Glomerular Filt Rate 82 ml/min (>60); GFR (African American) 99 ML/MIN (>60); Glucose 101 mg/dl (74-100); Total Protein,Serum 6.9 g/dl (6.3-8.2)
[2024-10-27 16:57] LABS: Thyroid Stimulating Hormone 3.91 uIU/mL (0.465-4.68)
[2024-10-27 18:49] LABS: Free T4 (Free Thyroxine) 1.17 ng/dl (0.78-2.19)
== END 2024-10-27 23:59 | disposition home or self-care (01) ==
LOC: LAB 13:44
PROVIDERS: PCP Nurse Practitioner Family; Visit Provider Internal Medicine
DX: R06.00 Dyspnea, unspecified (principal); I10 Essential (primary) hypertension; E78.2 Mixed hyperlipidemia; K21.9 Gastro-esophageal reflux disease without esophagitis
CPT/HCPCS: 36415; 80048; 80076; 84439; 84443; 85025

== ENCOUNTER 2024-11-12 07:24 | Day surgery (SDC) | payer MEDICARE, SELFPAY ==
[2024-11-09 16:47] VITALS: BMI 17.7
[2024-11-12 07:45] VITALS: BP 185/90; PULSE 72; RESP 18; TEMP 36.4; O2SAT 100
[2024-11-12] MEDS: LACTATED RINGERS 1000ML 1,000 ML 50 ML IV (07:50)
--- NOTE | 2024-11-12 08:04 | EXP.ANES.CKL ---
[facility] Disclaimer: The information contained in this section may have been updated after the patient was seen, as this information can be updated by other users. Medical History Elevated brain natriuretic peptide (BNP) level Elevated troponin I level Hyperlipidemia Hypertension Surgical History History of exploratory laparotomy Hx of colonoscopy 12/2021 normal Family History Father Cancer lung Mother Cancer lung Social History Smoking Status: Never smoker alcohol intake: never substance use type: denies use current occupational status: retired Travel in the last 8 weeks: None household members: spouse housing: house lives independently: No marital status: Have you lived/traveled outside [place] in past 30 days?: No Contact w/someone who lives/traveled outside US past 30 days?: No Exposure to someone with infectious disease in past 14 days?: No Do you have a fever (greater than 100.4 F or 38 C)?: No Have you tested positive for COVID-19: No Exposed to someone with COVID-19 in past 14 days?: No Do you have a sore throat?: No Do you have a cough?: No Do you have any weakness?: No Do you have any diarrhea?: No Are you experiencing any unusual bleeding?: No Do you have any muscle aches/pain?: No Do you have any abdominal pain?: No Are you experiencing loss of taste or smell?: No [facility] Anesthesia Checklist Patient Identification Patient Identification: Arm Band Structural Data Admitted From: Home Planned Operative Procedure/s: EGD Consent for Planned Operative Procedure(s) Verified: Yes Verified Documents: Surgical Consent and History and Physical NPO Status Verified Time NPO: 00:00 Additional verifications Anesthesia Reactions: No Airway Assessment Mallampati Score:: Class II C-Spine Mobility Assessed: Yes TMJ Mobility Assessed: Yes Dentition: Good Dentition Neurological Assessment Level of Consciousness: Awake, Alert and Appropriate Anesthesia Plan Anesthesia Risk discussed: Yes Anesthesia Plan: Verified ASA Class: II Anesthesia Type: MAC
[2024-11-12 08:33] VITALS: O2SAT 100
--- NOTE | 2024-11-12 08:51 | HMH.SCOPE ---
Procedure: Date: 11/12/24 Patient Date of :: 1950 Procedure Performed:: Esophagogastroduodenoscopy with biopsies Indications:: Patient presents for upper endoscopy. She underwent exploratory laparotomy with Kj patch repair for large perforated pyloric channel ulcer on 09/29/2024. After surgery she did have a prolonged ileus. She also had persistent leukocytosis and underwent radiographic placement of drain on 10/08/2024. Once the abscess was drained she had improvement in her leukocytosis and ileus and was ultimately discharged on levofloxacin and metronidazole. She is doing well without any complaints. Tolerating diet. Bowels are moving. Abdomen not distended. I had her undergo CT scan. IR drain was removed on 10/21/2024. Plan was made for upper endoscopy to assess underlying pathology. . Performing Provider:: Ridge Abbott MD Referring Provider:: Darshana Whittington Sedation:: MAC sedation Procedure:: Patient history was obtained and appropriate physical examination was performed. Patient's medications and allergies were reviewed. Informed consent was obtained after explaining the benefits, alternatives, and risks of the procedure including, but not limited to, bleeding, perforation, missed lesions, and adverse reaction to anesthesia medications. Patient was transported to endoscopy procedure room. Patient was connected to monitoring devices. Throughout the procedure the patient's blood pressure, pulse, and oxygen saturations were monitored continuously. Patient identification and planned procedure were verified by the staff. Patient was positioned in lateral decubitus position. Olympus endoscope was inserted via the oropharynx. Overall esophagus appeared relatively unremarkable. Gastroesophageal junction was encountered at about 43 cm from the incisors. Stomach was cannulated and insufflated. There was minimal nonerosive gastropathy/gastritis. Retroflexion revealed a small approximately 3 cm sliding hiatal hernia. Pylorus appeared unremarkable. Endoscope was advanced through the pylorus. The duodenal bulb appeared unremarkable. Initially advancement of the endoscope to the distal duodenum was difficult due to altered anatomy from perforated ulcer and surgery characterized by angulation and inflammatory changes. This area was carefully inspected upon withdrawal and reinsertion of the endoscope. There were a couple of submucosal visible sutures but no residual ulcer and no evidence of any mass. Consideration is being given for possible biopsy but this was felt to be unsafe and potentially result in bleeding which would be difficult to endoscopically control. Since there was no evidence of ulcer or mass or lesion biopsy was not performed. Endoscope was withdrawn into the gastric lumen and gastric biopsy was obtained to evaluate for H. pylori. Stomach was desufflated and the scope was withdrawn. Findings:: Normally esophagus Gastroesophageal junction at 43 cm Small sliding hiatal hernia Mild nonerosive gastropathy Postoperative changes consistent with perforated ulcer in the post bulbar duodenum Distal duodenum normal . Recommendations:: Continue proton pump inhibitors. I may consider a follow-up EGD in several months once the edema and inflammation has fully resolved. Complications:: None immediately apparent Estimated blood obtained (mL): 1 Colonoscopy Component Colonoscopy Component Was a colonoscopy performed during today's procedure?: No
[2024-11-12 08:55] VITALS: BP 132/70; PULSE 86; RESP 16; TEMP 36.4; O2SAT 99
[2024-11-12 09:05] VITALS: BP 118/69; PULSE 68; RESP 16; TEMP 36.4; O2SAT 99
[2024-11-12 09:15] VITALS: BP 140/73; PULSE 67; RESP 16; TEMP 36.4; O2SAT 100
[2024-11-12 09:25] VITALS: BP 138/79; PULSE 63; RESP 16; TEMP 36.4; O2SAT 100
== END 2024-11-12 09:27 | disposition home or self-care (01) ==
PROVIDERS: PCP Nurse Practitioner Family; Visit Provider Surgery
PROC: 0DJ08ZZ Inspection of Upper Intestinal Tract, Via Natural or Artificial Opening Endoscopic (ICD-10-PCS; CPT 43239; principal; 2024-11-12 09:15)
DX: K31.9 Disease of stomach and duodenum, unspecified (principal); K44.9 Diaphragmatic hernia without obstruction or gangrene; K29.70 Gastritis, unspecified, without bleeding; Z09 Encounter for follow-up examination after completed treatment for conditions other than malignant neoplasm; Z98.890 Other specified postprocedural states; Z87.11 Personal history of peptic ulcer disease
CPT/HCPCS: 43239; J7120

== ENCOUNTER 2025-01-17 13:34 | Outpatient (CLI) | payer MEDICARE, SELFPAY ==
[2025-01-17 14:02] LABS: Alanine Aminotransferase 14 U/L (12-78); Alkaline Phosphatase 68 U/L (38-126); Aspartate Amino Transferase 22 U/L (14-36); Bilirubin,Total 0.4 mg/dl (0.2-1.3); Chloride 107 mmol/L (98-107); Chol/HDL Ratio 3.4 (1-3.5); Cholesterol 210 mg/dl (140-200); Glucose 88 mg/dl (74-100); HDL Cholesterol 62 mg/dl (40-60); Magnesium 1.8 mg/dl (1.6-2.3); Sodium 139 mmol/L (136-145); Triglycerides 170 mg/dl (30-150); VLDL Cholesterol 34 mg/dL (0-40)
[2025-01-17 14:04] LABS: Albumin Level 4.3 g/dl (3.5-5.0); Albumin/Globulin Ratio 1.7 (1.1-1.8); Blood Urea Nitrogen 30 mg/dl (7-17); Carbon Dioxide 31 mmol/L (22.0-30.0); Estimated Glomerular Filt Rate 70 ml/min (>60); GFR (African American) 85 ML/MIN (>60); Globulin 2.6 g/dL (1.3-3.2); Total Protein,Serum 6.9 g/dl (6.3-8.2)
[2025-01-17 14:13] LABS: Direct LDL Cholesterol 112.41 mg/dL (100-129)
[2025-01-17 14:51] LABS: Vitamin B12 547 pg/mL (239-931)
== END 2025-01-17 23:59 | disposition home or self-care (01) ==
LOC: LAB.DROPOF 13:35
PROVIDERS: PCP Nurse Practitioner Family; Visit Provider Nurse Practitioner Family
DX: K21.9 Gastro-esophageal reflux disease without esophagitis (principal); I10 Essential (primary) hypertension; E78.5 Hyperlipidemia, unspecified; Z68.20 Body mass index [BMI] 20.0-20.9, adult
CPT/HCPCS: 80053; 80061; 82607; 83735

== ENCOUNTER 2025-03-18 06:23 | Day surgery (SDC) | payer MEDICARE, SELFPAY ==
--- NOTE | 2025-03-18 05:55 | EXP.GEN.HP ---
HPI HPI HPI: Patient presents to the office for routine follow-up EGD. She is a 75-year-old who underwent laparotomy with Kj patch repair for perforated pyloric channel ulcer on 09/29/2024. She did have a prolonged ileus and did have IR placement of drain for CHERIE hepatic abscess. I performed upper endoscopy on 11/12/2024 at which time she had some mild nonerosive gastropathy and she had postoperative changes consistent with perforated ulcer in the post bulbar duodenum with normal distal duodenum. There was still some edema. Plan was for her to have undergo continuation of proton pump inhibitors and possibly follow-up EGD several months once the edema and inflammation had fully resolved. Gastric biopsy at that time revealed no significant histopathologic abnormality with no H. pylori. [facility] Disclaimer: The information contained in this section may have been updated after the patient was seen, as this information can be updated by other users. Medical History Elevated brain natriuretic peptide (BNP) level Elevated troponin I level Hyperlipidemia Hypertension Surgical History History of esophagogastroduodenoscopy (EGD) History of exploratory laparotomy Hx of colonoscopy Family History Father Cancer lung Mother Cancer lung Social History (Updated 03/17/25 @ 11:13 by Alva Cavazos RN) Smoking Status: Never smoker alcohol intake: never substance use type: denies use current occupational status: retired Travel in the last 8 weeks?: None household members: spouse housing: house lives independently: No marital status: Contact w/someone who lives/traveled outside [place] past 30 days?: No Exposure to someone with infectious disease in past 14 days?: No Do you have a fever (greater than 100.4 F or 38 C)?: No Have you tested positive for COVID-19?: No Exposed to someone with COVID-19 in past 14 days?: No Do you have a sore throat?: No Do you have a cough?: No Do you have any weakness?: No Are you experiencing any nausea/vomitting?: No Do you have any diarrhea?: No Are you experiencing any unusual bleeding?: No Do you have any muscle aches/pain?: No Do you have any abdominal pain?: No Are you experiencing loss of taste or smell?: No Other Medical History Have you received the Flu Vaccine for this season: No Have you received the Pneumonia Vaccine: No Meds Home Medications and Allergies Home Medications ?Medication ?Instructions ?Recorded ?Confirmed ?Type lisinopril 20 mg tablet 20 mg PO DAILY #90 tabs 07/20/24 03/17/25 Rx multivitamin 1 tab PO DAILY 07/20/24 03/17/25 History pravastatin 20 mg tablet See Rx Instructions .Route 01/21/25 03/17/25 Rx .COMPLEX #90 tabs pantoprazole 40 mg tablet,delayed 40 mg PO DAILY 03/17/25 03/17/25 History release New Prescriptions to Start Prescriptions: Allergies Allergy/AdvReac Type Severity Reaction Status Date / Time No Known Allergies Allergy Verified 03/17/25 11:13 Exam Data for Last 24 hours I & O for Last 24 hours: Intake & Output 03/15/25 03/16/25 03/17/25 03/18/25 11:59 11:59 11:59 11:59 Weight 124 lb Constitutional Constitutional: no acute distress *Routine HEENT Exam Head: Present normocephalic Eye: Present EOMI and PERRL ENT: Present mucous membranes moist *Routine Neck Exam Neck: Present supple; Absent lymphadenopathy *Routine Respiratory Exam Respiratory: Present CTA bilaterally *Routine Cardiovascular Exam Cardiovascular: Present RRR *Routine Abdominal Exam Abdominal: Present soft and normoactive bowel sounds; Absent tenderness *Routine Rectal Exam Rectal:: deferred *Routine Genitalia Exam Genitalia:: deferred *Routine Extremities Exam Extremities: Absent cyanosis, clubbing or edema *Routine Skin Exam Skin: Present warm; Absent rash *Routine Neurological Exam Neurological: Present alert and oriented X3 Assessment and Plan *Assessment and plan (1) GERD (gastroesophageal reflux disease): Status: Acute Category: Medical Code(s): K21.9 - Gastro-esophageal reflux disease without esophagitis Plan Repeat EGD
[2025-03-18] MEDS: LACTATED RINGERS 1000ML 1,000 ML 50 ML IV (06:44)
[2025-03-18 06:46] VITALS: BP 188/104; PULSE 70; RESP 18; TEMP 36.1; O2SAT 100
--- NOTE | 2025-03-18 06:59 | EXP.ANES.CKL ---
[facility] Disclaimer: The information contained in this section may have been updated after the patient was seen, as this information can be updated by other users. Medical History Elevated brain natriuretic peptide (BNP) level Elevated troponin I level Hyperlipidemia Hypertension Surgical History History of esophagogastroduodenoscopy (EGD) History of exploratory laparotomy Hx of colonoscopy Family History Father Cancer lung Mother Cancer lung Social History Smoking Status: Never smoker alcohol intake: never substance use type: denies use current occupational status: retired Travel in the last 8 weeks?: None household members: spouse housing: house lives independently: No marital status: Have you lived/traveled outside [place] in past 30 days?: No Contact w/someone who lives/traveled outside [place] past 30 days?: No Exposure to someone with infectious disease in past 14 days?: No Do you have a fever (greater than 100.4 F or 38 C)?: No Have you tested positive for COVID-19?: No Exposed to someone with COVID-19 in past 14 days?: No Do you have a sore throat?: No Do you have a cough?: No Do you have any weakness?: No Are you experiencing any nausea/vomitting?: No Do you have any diarrhea?: No Are you experiencing any unusual bleeding?: No Do you have any muscle aches/pain?: No Do you have any abdominal pain?: No Are you experiencing loss of taste or smell?: No [facility] Anesthesia Checklist Patient Identification Patient Identification: Arm Band and Family Structural Data Admitted From: Home Planned Operative Procedure/s: EGD Consent for Planned Operative Procedure(s) Verified: Yes Verified Documents: Surgical Consent NPO Status Verified Time NPO: 00:00 Additional verifications Patient : No Anesthesia Reactions: No Hx Blood Transfusions: No Blood Transfusion Reaction: No Cephalosporin Allergy: No Previous Colonoscopy: Yes Airway Assessment Mallampati Score:: Class III C-Spine Mobility Assessed: Yes TMJ Mobility Assessed: Yes Dentition: Good Dentition Neurological Assessment Level of Consciousness: Awake, Alert, Appropriate and Follows Commands Hx Seizures: No Numbness or tingling in extremities: No Anesthesia Plan Anesthesia Risk discussed: Yes ASA Class: II Anesthesia Type: MAC Preoperative Comments Pre-Operative Comments: History of ulcers. Hepatitis as a child. Hypertension.
--- NOTE | 2025-03-18 07:33 | HMH.SCOPE ---
Procedure: Date: 03/18/25 Patient Date of :: 1950 Procedure Performed:: Esophagogastroduodenoscopy with biopsies Indications:: Patient presents to the office for routine follow-up EGD. She is a 75-year-old who underwent laparotomy with Kj patch repair for perforated pyloric channel ulcer on 09/29/2024. She did have a prolonged ileus and did have IR placement of drain for CHERIE hepatic abscess. I performed upper endoscopy on 11/12/2024 at which time she had some mild nonerosive gastropathy and she had postoperative changes consistent with perforated ulcer in the post bulbar duodenum with normal distal duodenum. There was still some edema. Plan was for her to have undergo continuation of proton pump inhibitors and possibly follow-up EGD several months once the edema and inflammation had fully resolved. Gastric biopsy at that time revealed no significant histopathologic abnormality with no H. pylori. Performing Provider:: Ridge Abbott MD Referring Provider:: Darshana Whittington Sedation:: MAC sedation Procedure:: Patient history was obtained and appropriate physical examination was performed. Patient's medications and allergies were reviewed. Informed consent was obtained after explaining the benefits, alternatives, and risks of the procedure including, but not limited to, bleeding, perforation, missed lesions, and adverse reaction to anesthesia medications. Patient was transported to endoscopy procedure room. Patient was connected to monitoring devices. Throughout the procedure the patient's blood pressure, pulse, and oxygen saturations were monitored continuously. Patient identification and planned procedure were verified by the staff. Patient was positioned in lateral decubitus position. [id number] endoscope was inserted via the oropharynx. There was some minor cricopharyngeal spasm. Esophagus was cannulated. Overall esophagus appeared unremarkable. Gastroesophageal junction was encountered at 40 cm from the incisors. Stomach was cannulated and insufflated. Retroflexion revealed a tiny hiatal hernia. Pylorus was traversed. The second portion of the duodenum there was a visible suture from previous repair. There is no evidence of any mass or residual ulcer. There was some angulation and narrowing. Multiple biopsies were obtained proximal to the surgical site and ultimately the endoscope was advanced beyond this. Distal duodenum appeared unremarkable. Careful reinsertion and withdrawal of the endoscope with prolonged inspection was carried out. Multiple biopsies were obtained within the region. Endoscope was withdrawn into the distal esophagus and a couple biopsies were obtained at the gastroesophageal junction. Stomach was desufflated and the endoscope was withdrawn. . Findings:: Gastroesophageal junction at approximately 40 cm from the incisors Small sliding hiatal hernia Postoperative changes in the post bulbar duodenum with a visible suture and some angulation and narrowing. No evidence of any mass or residual or recurrent ulcer Distal duodenum normal Recommendations:: Plan to follow-up on biopsies. If unremarkable may consider changing proton pump inhibitors to H2 blockers. Complications:: None immediately apparent Estimated blood obtained (mL): 2 Colonoscopy Component Colonoscopy Component Was a colonoscopy performed during today's procedure?: No
[2025-03-18 07:35] VITALS: BP 135/71; PULSE 55; RESP 16; TEMP 36.6; O2SAT 99
[2025-03-18 07:45] VITALS: BP 139/70; PULSE 58; RESP 16; TEMP 36.6; O2SAT 99
[2025-03-18 07:55] VITALS: BP 156/87; PULSE 56; RESP 17; TEMP 36.6; O2SAT 100
[2025-03-18 08:05] VITALS: BP 163/81; PULSE 55; RESP 17; TEMP 36.6; O2SAT 99
== END 2025-03-18 08:30 | disposition home or self-care (01) ==
PROVIDERS: PCP Nurse Practitioner Family; Visit Provider Surgery
PROC: 0DJ08ZZ Inspection of Upper Intestinal Tract, Via Natural or Artificial Opening Endoscopic (ICD-10-PCS; CPT 43239; principal; 2025-03-18 07:30)
DX: K29.80 Duodenitis without bleeding (principal); K44.9 Diaphragmatic hernia without obstruction or gangrene; K21.9 Gastro-esophageal reflux disease without esophagitis; K29.50 Unspecified chronic gastritis without bleeding; K31.89 Other diseases of stomach and duodenum; E78.5 Hyperlipidemia, unspecified; I10 Essential (primary) hypertension; Z48.815 Encounter for surgical aftercare following surgery on the digestive system; Z87.11 Personal history of peptic ulcer disease; Z87.19 Personal history of other diseases of the digestive system; Z79.899 Other long term (current) drug therapy
CPT/HCPCS: 43239; 88305; 88342; J2704; J7120